=== PATIENT | female | born 1970 | race Caucasian/White ===

== ENCOUNTER 2017-05-20 06:21 | Day surgery (SDC) | payer OTHER ==
--- NOTE | 2017-05-11 02:01 | HP ---
AMENDED REPORT NOW INCLUDES COSIGNER DESIGNATION - ESIGNED BEFORE ADJUSTMENT HISTORY AND PHYSICAL: DATE OF HISTORY AND PHYSICAL: 05/09/17 DATE OF SURGERY: 05/20/17 SURGEON: Dr. Camacho * (DICTATED BY DOMINGO SHAH) PROCEDURE: Left shoulder arthroscopic rotator cuff repair, decompression, debridement. CHIEF COMPLAINT: Left shoulder pain. HISTORY OF PRESENT ILLNESS: Gisselle is a 46-year-old right-hand dominant female with bilateral shoulder pain with left greater than right. It has been going for some time. She states as early as 2009 was when that pain started. She did also follow up of course in 2005. She states that she was in a chair in her bathroom when she fell off the chair and hit very hard with her shoulder. 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 She was previously a patient of Dr. Whitfield but was also sent to our office from Dr. Crowe and Dr. Sanchez as well as Dr. Menjivar. She has had cortisone injections in the past which she reports no response to, her pain is about 10/ 10. She has pain with sleeping, lifting, moving above her head and away from her body. She does have improvement in that pain with ice and medications or if she is stopping what she is doing. She has engaged in physical therapy for extensive amount of time in the past. She had an MRI as well as x-rays previously. She has also been seen in the [facility] in [place] previously , but Dr. Crowe appears to be managing her pain medication now. She does have a history of PTSD. She is here today for a history and physical for surgery which was discussed on April 11 with the patient with Dr. Camacho. She did have cardiac clearance from Dr. Britton including an EKG and echocardiogram. She did request some disability, paper work filled out today. PAST MEDICAL HISTORY: Significant for PTSD; anxiety; depression; cervical spine , thoracic spine, and lumbar spine pain. She does have some numbness and tingling down her arm. She does get migraines. She has fibromyalgia and chronic pain syndrome, GERD, and osteoarthritis. PAST SURGICAL HISTORY: Significant for C6-C7 fusion in 2016, bariatric Carroll-en- Y in 2014 and and tonsillectomy. MEDICATIONS: She is currently takin. Trazodone. 2. Tizanidine. 3. Lyrica. 4. Iron supplement. 5. Diazepam. 6. Sertraline. 7. Vitamin B12. 8. Loratadine. 9. Vitamin D3. 10. Magnesium oxide. 11. Zoloft. 12. Prilosec. 13. Motrin. 14. Endocet. 15. Probiotics. 16. Tums as needed. 17. Excedrin Migraine. 18. Imodium. 19. Dulcolax. 20. Ashlyna oral contraceptive. ALLERGIES: She has allergies to ADHESIVE TAPE, BIAXIN, and LEXAPRO. FAMILY MEDICAL HISTORY: Significant for mother with thyroid disorders, AFib, and irritable bowel syndrome. Father with hyperlipidemia, hypertension, and thyroid disease. Sister with IBS and brother with IBS. SOCIAL HISTORY: She denies tobacco, alcohol, and illicit drug use. REVIEW OF SYSTEMS: Positive for her current complaint, headaches; pedal swelling in her right lower limb, this is chronic; nausea, vomiting, diarrhea, and constipation; back pain; a Hearn's cyst; depression; anxiety; anemia; easy bruising. She denies problems with anesthesia in the past. She endorses ability to walk a city block or flight of stairs without stopping and denies a history of DVT, PE, MRSA, hepatitis C, and HIV. She also denied 14 point review of systems aside from previously reported. PHYSICAL EXAMINATION VITAL SIGNS: Height 54 inches, weight 213 pounds, blood pressure 124/70, respirations 18, temperature 97.7, pain level 6, BMI 36.6. GENERAL: She is a well-developed, well-nourished 46-year-old female in no acute distress. Alert and oriented x3 with numbness in her left arm to soft touch. She ambulates without a limp. HEENT: Normocephalic and atraumatic. Pupils equally round and reactive to light. Extraocular movements intact. Neck is supple, no palpable cervical lymph nodes. Thyroid is smooth and nontender. PULMONARY: Lungs are clear to auscultation bilaterally with no wheezes, rhonchi , or rales. CARDIAC: Regular, rate, and rhythm with no murmurs, rubs, or gallops. No pedal edema. ABDOMEN: Soft and nontender. NEUROLOGIC: Sensation is grossly intact to light touch. MUSCULOSKELETAL: Left upper extremity: Examination of the left shoulder shows intact skin. There is no erythema or warmth. She is nontender at the AC joint , but tender at the subacromial side. Mildly tender at the bicipital groove. She is able to forward flex to 160, abduct to 155 with some discomfort; externally rotate to 70, internally rotate to thoracolumbar spine. She has 5/5 strength with belly- press and bear hug, forward flexion too. She has a positive Kristie's test with mild amount of weakness for cuff strength. Positive impingement test. Garibay, nontender to palpation at the joint. She has positive Speeds and Graham. She is sensitive to light touch at the first dorsal space with 2+ radial pulses. STUDIES: X-rays, and MRI were previously reviewed. X-ray of the left shoulder demonstrates downward sloping acromial spur and no fractures or dislocations. MRI obtained on 03/18/17 demonstrates a high-grade partial thickness tear. Supraspinatus tendon with mild amount of AC joint arthritis, fluid at the bicipital groove with no obvious tendinosis. IMPRESSION: Partial thickness tearing of the supraspinatus extending into the infraspinatus as she has previously failed conservative treatment. She has opted to do surgery. Gisselle is scheduled to undergo a left shoulder arthroscopic rotator cuff repair with decompression and debridement on 05/20/[address] Camacho. She will return to clinic 10 to 14 days postop for followup and suture removal. Pain medications will be discussed with Dr. Crowe prior to her surgery. All questions were answered today. DOMINGO SHAH [id number]/[facility] #: [id number] LOW
[~2017-05-20 06:21] MED LIST: Buffered Lidocaine 0.9% SYRIN* 5 ML/SYR SYRINGE INTRADERM ONE; DiMENhydriNATE IV* 50 MG/ML VIAL IV PUSH PRN; Famotidine IV* 10 MG/ML 2 ML (20 mg) IV ONE; Morphine INJ* 2 MG/ML 1 ML CARPUJECT IV PRN; PROCHLORPERAZINE INJ 5 MG/ML 2 ML VIAL IV PRN; Scopolamine 1.5 mg* PATCH TRANSDERM PRN; fentaNYL* 50 MCG/ML 2 ML VIAL (100 MCG VIAL) IV PRN; oxyCODONE/Acetamin 5/325 MG* TAB PO PRN
[2017-05-20] MEDS ORDERED: Famotidine IV* 10 MG/ML 2 ML (20 mg) ONE (06:27)
[2017-05-20] MEDS ORDERED: Bupivacaine 0.25% SDV* 30 ML ONE ×2 (07:04→07:14)
[2017-05-20] MEDS ORDERED: Midazolam* 1 MG/ML 5 ML VIAL (5 MG) ONE (07:17)
[2017-05-20] MEDS ORDERED: fentaNYL* 50 MCG/ML 2 ML VIAL (100 MCG VIAL) ONE (07:17)
[2017-05-20] MEDS ORDERED: KETAMINE HCL* 50 MG/ML 10 ML VIAL ONE (07:17)
[2017-05-20] MEDS ORDERED: ceFAZolin 2 GM PREMIX (*) 2 GM/50 ML BAG IVPB ONE (07:20)
[2017-05-20] MEDS ORDERED: Lidocaine 2% PF * 5 ML VIAL ONE (08:38)
[2017-05-20] MEDS ORDERED: Dexamethasone IV* 4 MG/ML 1 ML (4 MG) ONE (08:38)
[2017-05-20] MEDS ORDERED: PROCHLORPERAZINE INJ 5 MG/ML 2 ML VIAL ONE (08:38)
[2017-05-20] MEDS ORDERED: Propofol* 10 MG/ML 20 ML BTL IV PUSH ONE (08:38)
[2017-05-20] MEDS ORDERED: Ondansetron INJ* 2 MG/ML VIAL ONE (08:38)
[2017-05-20] MEDS ORDERED: Morphine INJ* 10 MG/ML 1 ML CARPUJECT ONE (09:01)
[2017-05-20] MEDS ORDERED: hydrALAZINE IV* 20 MG/ML VIAL ONE (09:35)
[2017-05-20] MEDS ORDERED: oxyCODONE/Acetamin 5/325 MG* TAB ONE (10:08)
[2017-05-20 10:52] VITALS: BP 128/72
--- NOTE | 2017-05-21 03:18 | OP ---
CC: PCP, Shen Sanchez MD DATE OF OPERATION: 05/20/17 [facility] DATE OF : 68 SURGEON: Lelia Camacho MD EVIDENCE CUSTODIAN: DOMINGO Gonsalez ANESTHESIOLOGIST: Dinh Vergara MD ANESTHESIA: General interscalene block. PRE-OP DIAGNOSIS: Left shoulder partial-thickness rotator cuff tear with bicipital tendinitis. POST-OP DIAGNOSIS: Left shoulder partial-thickness rotator cuff tear with bicipital tendinitis. OPERATIVE PROCEDURE: 1. Left shoulder arthroscopy with debridement including subscapularis debridement. 2. Rotator cuff repair of supraspinatus in double-row fashion. 3. Arthroscopic biceps tenodesis. 4. Subacromial decompression with acromioplasty. INDICATIONS: Gisselle Gunderson is a 46-year-old female who has had several-year history of shoulder pain. This started in 2009. She has had history of falling off a horse in 2005 and then another history of fall in 2009. She has had several opinions and several evaluation. She was initially worked up for neck injury. She has failed conservative management, had injection, and physical therapy. She had an MRI that was concerned for partial-thickness tear of the rotator cuff anteriorly with bicipital tendinitis. After extensive discussion of the risks and benefits of the operative versus nonoperative treatment, she has elected to proceed with the operative treatment. DESCRIPTION OF PROCEDURE: The patient was greeted in the preoperative area by the attending surgeon. Correct extremity was marked and consent was confirmed. She underwent interscalene nerve block by anesthesiologist, which she tolerated without difficulty. She was then brought back to the operative suite. She was placed in supine position on the operating table. She then underwent general anesthesia with LMA intubation, after which she was placed in the right lateral decubitus position. The left arm was draped unsterile with 10 pounds of traction. The left shoulder was prepped and draped in usual sterile fashion beginning with chlorhexidine soap, scrub, and alcohol wipe, and a final prep with ChloraPrep. After appropriate surgical pause indicating site, side, procedure, and administration of antibiotics, the standard postero-lateral portal was made using an 11 blade. The scope was brought into position in the joint and the joint was examined. There was partial-thickness tearing of the undersurface of supraspinatus. The interval had unstable tearing. The biceps was subluxed anteriorly, undersurface of the subscap also had some mild unstable tearing. The anterior, posterior, superior labrum were torn with unstable flaps. The anterior portal was made in an outside-in fashion. Shaver was used to debride back the anterior, posterior, superior labrum. The biceps was then tagged using an 0 PDS suture and tenotomized. The undersurface of the supraspinatus and the subscapularis was debrided back. This was an unusual shaped tear and appeared to be an L-shaped tear, but only involved the anterior portion of the supraspinatus tendon. The infraspinatus was intact. Glenohumeral joint had grade 0 to 1 changes of the head, and grade 1 and small areas with grade 2 changes of the glenoid, with no large unstable flaps. Inferior recess was intact. Once the debridement was completed and the tenotomy was completed, attention was directed to the subacromial space. A second PDS suture was used to ashlee the position of the tear of the supraspinatus tendon. The scope was positioned in the subacromial space. The lateral portal was made in an outside-in fashion. he shaver was used to debride back the large thick bursa that was present. Electrocautery was used to skeletonize the undersurface of the acromion, which had a moderate-sized spur. This was then debrided back using arthroscopic bur. The bur was then used to do a small acromioplasty of the acromion. All excess debris was removed from the subacromial space and attention was directed to the rotator cuff, which was then probed and found to have high- grade partial-thickness bursal-sided tearing at the level of the previously marked tear. There was an unstable flap that was evident as well. Decision was made to repair this. The knife was then used to complete the tear. This was the anterior aspect of the supraspinatus tendon. The greater tuberosity was prepared using electrocautery , the shaver as well as the bur and the rasp. Once this was done, the cuff tissue was also mobilized carefully. The biceps was pulled through to the subacromial space so that could be later tenodesed as well. Once 4.75 Q-Fix anchor was placed along the medial row with excellent purchase, the sutures were passed through the tendon in a horizontal mattress configuration. These were then tied down using arthroscopic knot tying. The sutures were then passed through the biceps tendon and then also secured to allow for biceps tenodesis. All the excess sutures were then passed through a MultiFix anchor, which was secured for lateral row fixation. Once the rotator cuff repaired and biceps tenodesis were complete, final images were obtained. The shoulder was thoroughly lavaged and the portals were closed with 3-0 nylon. A Cryo/Cuff as well as an UltraSling was then placed. She was awoken from anesthesia and transferred to PACU in stable condition. POSTOPERATIVE PLAN: She will be nonweightbearing. She will be in a sling for 6 weeks. She will start therapy in 4 weeks. She will be discharged on pain medications and DVT prophylaxis was considered, but deferred due to no previous personal or family history. We will only cover the pain medication for approximately 6 weeks. [id number]/[facility] #: [id number] [facility] HOSPITALRosamaria
[2017-05-23] MEDS ORDERED: Scopolamine PATCH Remove* 1 NOTE MISC PATCH OFF ONE (05:42)
== END 2017-05-20 11:05 | disposition home or self-care (01) ==
LOC: OREAST 06:21
PROVIDERS: ATTEND Orthopaedic Surgery
DX: S46.012A Strain of muscle(s) and tendon(s) of the rotator cuff of left shoulder, initial encounter (principal); M75.22 Bicipital tendinitis, left shoulder; W19.XXXA Unspecified fall, initial encounter; Y92.9 Unspecified place or not applicable; G89.18 Other acute postprocedural pain; F43.10 Post-traumatic stress disorder, unspecified; F41.9 Anxiety disorder, unspecified; F32.9 Major depressive disorder, single episode, unspecified; G43.909 Migraine, unspecified, not intractable, without status migrainosus; M79.7 Fibromyalgia; K21.9 Gastro-esophageal reflux disease without esophagitis; G89.4 Chronic pain syndrome; Z88.1 Allergy status to other antibiotic agents; Z88.8 Allergy status to other drugs, medicaments and biological substances
CPT/HCPCS: 81025; A9270-GY; C1713; J0360; J0690; J0780; J1100; J2250; J2270; J2405; J2704; J3010

== ENCOUNTER 2017-06-24 14:47 | Emergency (ER) | payer OTHER ==
--- OUTSIDE RECORDS SUMMARY | 2017-06-24 16:10 | XMS REPORT ---
:1970 External Reference #:[id number] [facility] Address [address] [address] Phone [phone] Care Team Providers Name Role Phone Randi Crowe MD Primary Care Physician Unavailable Payers Type Date Identification Numbers Payment Provider Subscriber Health Maintenance Effective: Policy Number: [facility] Gisselle Blank Neptali Organization (O) 12/22/2001 [id number] Expires: 02/02/2015 PayID: [id number] [address] [address] [place] [address] Commercial Policy Number: [id number] Rodolfo Bettencourth Group Number: [id number] [address] PayID: [id number] [place] [address] Problems Date Description Provider Status Onset: 02/03/2015 Sprain of shoulder and upper arm Rahel Romano MD Active Onset: 05/28/2017 Disorder of shoulder Lelia Camacho MD Active Family History Date Family Member(s) Problem(s) Comments General No Current Problems Onset: (11/15/2015) Father Hypertension (age 69 Years) Mother afib, cardioverted x 1 Onset: (11/15/2015) Mother Alive And Well (age 70 Years) Siblings 2 no known cardiac issues Social History Type Date Description Comments Marital Status Single Lives With Alone Occupation Unemployed ETOH Use Denies alcohol use Smoking Patient has never smoked Recreational Drug Use Denies Drug Use Daily Caffeine Does Not Consume Caffeine Exercise Type/Frequency Exercises sporadically water therapy 3x weekly Exercise Type/Frequency walks General Hx Text medical issues impair her ability to work Allergies, Adverse Reactions, Alerts Date Description Reaction Status Severity Comments 02/01/2004 Adhesive Tape active rash 08/23/2016 Biaxin active 04/01/2017 Lexapro active Medications Medication Date Status Form Strength Qnty SIG Indications Ordering Provider Cephalexin 05/20 Active Tablets 500mg 12tab take 1 by zane s mouth four Yaseen, times a day MD x 3 days Oxycodone-Acetami 05/20 Active Tablets 5-325mg 40tab 1-2 tabs by Lelia sosa s mouth every Yaseen, 4-6 hours as MD needed for pain do not fill until 05/30/17 Lyrica 04/23 Active Capsules 150mg 1 by mouth twice a day Harper Britton M.D. Acidophilus 04/23 Active Capsules once daily Straight Cane For 09/17 Active 1unit Shen Busch Knee DJ maximo Sanchez MD Trazodone HCL Active Tablets 100mg 1/2 by mouth Unknown /0000 every night at bedtime Tizanidine HCL Active Capsules 4mg 1 by mouth Unknown /0000 at bedtime Iron Active Tablets 325(65Fe) 1 by mouth Unknown /0000 mg every day Diazepam Active Tablets 10mg take 1 Unknown /0000 tablet by mouth three times a day maximum daily dose of 3 Sertraline HCL Active Tablets 100mg take 1 Unknown /0000 tablet by mouth every morning Ra Vitamin B-12 Active Tablets 1000mcg 1 tab po Unknown TR / ER daily Loratadine Active Tablets 10mg 1 tab po Unknown /0000 daily Ra Vitamin D-3 Active Tablets 1000Unit take 2 Unknown /0000 tablets by mouth once daily Magnesium Oxide Active Tablets 500mg 1 capsule by Unknown /0000 mouth daily Pt is not currently taking) Prilosec Active 40mg 1-2 tabs q Unknown /0000 day Motrin Ib Active prn Unknown /0000 Endocet Active Tablets 10-325mg Unknown /0000 Tums Active Chewtabs 500mg 2 chewtabs Unknown /0000 by mouth daily Excedrin Migraine Active Tablets 250-250-6 1 tab twice Unknown /0000 5mg a day as needed for migraine Imodium A-D Active Capsules 2mg 1 by mouth Unknown /0000 twice a day, as needed diarrhea Ashlyna Active Tablets 0.15-0.03 Unknown /0000 &0.01 mg Dexamethasone Active Tablets 1.5mg Tiara, /0000 MD Talia Cyclobenzaprine 11/14 Hx Tablets 10mg 30tab one by mouth Other s three times Ordering - a day as Provider 08/22 needed spasm Percocet 02/24 Hx Tablets 5-325mg 15tab 1 tab po q 840.9 Fnu s 8hrs prn Juan Antonio, - pain 11/13 Motrin Ib 02/03 Hx Tablets 600mg 60tab as needed Fnu s qid Juan Antonio, - 04/01 Vicodin 02/03 Hx Tablets 5-300mg 15tab 1 tab twice 840.9 Fnu /2014 s daily as Juan Antonio, - needed for 11/13 pain. Singulair 01/30 Hx Tablets 10mg 30tab one qd am s F. - Mauser, 02/03 M.D. Aciphex 01/30 Hx Tablets 20mg 30tab 2 po qd s F. - Mauser, 02/03.D. Advair Diskus 01/30 Hx Inhaler 500mcg;50 1 PO bid mcg F. - Mauser, 02/03.D. Albuterol 01/30 Hx Aerosol 90mcg/Dos e F. - Mauser, 02/03 M.D. Triphasil 28 Day 01/30 Hx Tablets 0.03mg;0. 1 PO qd 05mg;0.04 F. - MG Adeliauser, 02/03.D. Vitamin C 01/30 Hx Capsules 500mg 1 PO qd Duc F. - Mauser, 02/03 M.D. /2014 Relpax 01/30 Hx Tablets 40mg prn Duc F. - Mauser, 02/03 M.D. Axert 01/30 Hx Tablets 1 po prn migrain Harper Britton, 02/03 M.D. /2014 Lexapro 01/30 Hx Tablets 10mg 30tab 1 PO qd s Harper Britton, 02/02 M.D. Alprazolam Hx Tablets 0.5mg take 1 Unknown /0000 tablet by - mouth every 11/13 8 hours needed for anxiety maximum joaquim (pt suzetted, MD aware) Prozac Hx Capsules 60mg 1 by mouth Unknown /0000 every day - 11/13 Omeprazole Hx Capsules 40mg 1 po bid Unknown /0000 DR - 09/05 Seasonale Hx Tablets 0.15-0.03 1 by mouth Unknown /0000 mg every day - 11/13 Escitalopram Hx Tablets 10mg 1 by mouth Unknown Oxalate /0000 every day - 08/22 Loperamide HCL Hx Capsules 2mg take one Unknown /0000 capsule by - mouth every 04/01 6 hours needed Lyrica Hx Capsules 75mg 1 by mouth Unknown /0000 twice a day - 04/24 Gabapentin 00/ Hx Capsules 300mg 1 by mouth Unknown /0000 bid - 11/21 Benadryl Allergy Hx Tablets 25mg 2 tablet by Unknown /0000 mouth qhs as - needed 08/22 Clonazepam 00 Hx Tablets 2mg 1 by mouth Unknown /0000 three times - a day prn 08/22 Clindamycin Hx Gel 1% apply to Unknown Phosphate /0000 affected - area two 08/22 times daily Tramadol HCL 0000 Hx Tablets 50mg take 1 to 2 Unknown /0000 tablets by - mouth three 04/01 times a day /2016 if needed maximum daily Fluoxetine HCL 0000 Hx Capsules 40mg take 1 Unknown /0000 capsule by - mouth every 11/21 Fluoxetine HCL 00/00 Hx Capsules 20mg take 1 Unknown /0000 capsule by - mouth once 11/21 daily Along With 40 MG Cap Ferrous Sulfate Hx Tablets 325(65Fe) Take 1 Unknown /0000 mg Tablet By - Mouth Every Colace Hx Capsules 100mg 1 by mouth Unknown /0000 up to 3 - times a day 04/01 as needed for constipation . Pantoprazole Hx Tablets 40mg 1 po qday Olarewaju Sodium /0000 , - Catie, 03/05 Oxycodone-Acetami Hx Tablets 7.5-325mg take 1 Unknown nophen / tablet by - mouth every 04/01 6 hours needed for Severe Neck An... Ashlyna Hx Tablets 0.15-0.03 take 1 Unknown /0000 &0.01 tablet by - mg mouth At The 04/01 Same Time Every Day Zoloft Hx 150mg Unknown / - 03/24 Vitamin B12 Hx q day Unknown / - 03/24 Control Hx Unknown / - 03/24 Probiotic Hx Capsules 1 by mouth Unknown / every day - 03/24 Dulcolax Hx Tablets 5mg take as Unknown /0000 directed for - colonoscopy 03/24 Medications Administered in Office Medication Date Status Form Strength Qnty SIG Indications Ordering Provider Celestone 3 mg Administered Injection Shen M and 3mg 017 MD Luara Celestone 3 mg Administered Injection Shen M and 3mg 017 MD Laura Depomedrol Administered Injection Shen M 40MG Rut Sanchez MD Depomedrol Administered Injection Shen M 40MG 017 MD Laura Depomedrol Administered Injection Shen M 40MG 017 MD Laura Depomedrol Administered Injection Fnu 40MG Sheila Romano MD Vital Signs Date Vital Result Comment 05/28/2017 Height 64 inches 5'4" Weight 213.00 lb Respiratory Rate 14 /min Pain Level 8 BMI (Body Mass Index) 36.6 kg/m2 05/09/2017 Height 64 inches 5'4" Weight 213.00 lb BP Systolic 124 mmHg BP Diastolic 70 mmHg Respiratory Rate 18 /min Body Temperature 97.7 F Pain Level 6 BMI (Body Mass Index) 36.6 kg/m2 04/24/2017 Height 64 inches 5'4" Weight 213.00 lb with shoes Heart Rate 68 /min BP Systolic Sitting 138 mmHg LA reg cuff BP Diastolic Sitting 90 mmHg LA reg cuff BMI (Body Mass Index) 36.6 kg/m2 Ejection Fraction 63% stress test 12/10/03 04/11/2017 Height 64 inches 5'4" Weight 210.00 lb BP Systolic 128 mmHg BP Diastolic 74 mmHg Respiratory Rate 18 /min Pain Level 5 BMI (Body Mass Index) 36.0 kg/m2 04/01/2017 Height 64 inches 5'4" Weight 210.00 lb Heart Rate 60 /min BP Systolic 119 mmHg BP Diastolic 81 mmHg Body Temperature 97.5 F BMI (Body Mass Index) 36.0 kg/m2 03/11/2017 Height 64 inches 5'4" Weight 210.00 lb Heart Rate 76 /min BP Systolic Sitting 122 mmHg BP Diastolic Sitting 78 mmHg Respiratory Rate 16 /min Pain Level 8 BMI (Body Mass Index) 36.0 kg/m2 11/22/2016 Height 64 inches 5'4" Weight 190.00 lb Heart Rate 76 /min BP Systolic 124 mmHg BP Diastolic 68 mmHg Respiratory Rate 16 /min Pain Level 8 BMI (Body Mass Index) 32.6 kg/m2 09/07/2016 Height 64 inches 5'4" Weight 184.00 lb Heart Rate 72 /min BP Systolic Sitting 90 mmHg BP Diastolic Sitting 58 mmHg Respiratory Rate 18 /min Pain Level 5 BMI (Body Mass Index) 31.6 kg/m2 08/23/2016 Height 64 inches 5'4" Weight 190.00 lb Heart Rate 72 /min BP Systolic Sitting 104 mmHg BP Diastolic Sitting 58 mmHg Respiratory Rate 18 /min BMI (Body Mass Index) 32.6 kg/m2 11/15/2015 Height 64 inches 5'4" Weight 169.00 lb with shoes Heart Rate 74 /min BP Systolic 128 mmHg LA reg cuff BP Diastolic 86 mmHg LA reg cuff BMI (Body Mass Index) 29.0 kg/m2 Ejection Fraction 60% - 65% echo 02/10/2002 02/24/2015 Height 64 inches 5'4" Weight 170.00 lb Heart Rate 78 /min BP Systolic Sitting 124 mmHg BP Diastolic Sitting 80 mmHg BMI (Body Mass Index) 29.2 kg/m2 02/03/2015 Height 64 inches 5'4" Weight 170.00 lb Heart Rate 78 /min BP Systolic Sitting 126 mmHg BP Diastolic Sitting 80 mmHg BMI (Body Mass Index) 29.2 kg/m2 02/01/2004 Height 65 inches 5'5" Weight 308.00 lb Heart Rate 77 /min BP Systolic Sitting 130 mmHg left arm, right arm 124/82 BP Diastolic Sitting 80 mmHg left arm, right arm 124/82 BP Systolic Standing 128 mmHg BP Diastolic Standing 80 mmHg O2 % BldC Oximetry 97 % BMI (Body Mass Index) 51.2 kg/m2 Results Description No Information Procedures Date CPT Code Description Status 05/20/2017 82324 Arthroscopy Biceps Tenodesis Completed 05/20/2017 95879 Arthroscopy Biceps Tenodesis Completed 05/20/2017 59671 Arthroscopy Shoulder,W/Rotator Cuff Repair Completed 05/20/2017 74969 Arthroscopy Shoulder,W/Rotator Cuff Repair Completed 05/20/2017 86931 Arthroscopy,Shoulder Decompression Of Subacromial Space Completed W/Acromio 05/20/2017 77171 Arthroscopy,Shoulder Decompression Of Subacromial Space Completed W/Acromio 05/20/2017 80389 Arthroscopy Shoulder Debridement Extensive Completed 05/20/2017 08979 Arthroscopy Shoulder Debridement Limited Completed 04/24/2017 67196 ECHO Transthoracic, Real-Time 2D With Doppler And Color Completed Flow 03/11/2017 09087 Inject/Drain Joint/Bursa Major Completed 11/22/2016 42513 Inject Tendon Sheath Or Ligament Aponeurosis Eg Plantar Completed Fascia 09/07/2016 39082 Xray Knee 3 Views Completed 09/07/201639935 Inject/Drain Joint/Bursa Major Completed 08/23/2016 22479 Inject/Drain Joint/Bursa Major Completed 11/15/2015 56967 EKG Tracing & Interpretation Completed 02/03/2015 50098 Rad Shoulder Comp, Min. 2 Views Completed 02/03/2015 69692 Inject/Drain Joint/Bursa Major Completed 02/01/2004 15221 EKG Tracing & Interpretation Completed 12/10/2003 49214 ECHO/Stress Completed 12/10/2003 50452 Stress Test Completed Encounters Type Date Location Provider CPT E/M Dx Office Visit 04/24/2017 2:30p [facility] Duc Britton, 29549 R01.1 Ammon I49.1 I34.0 E66.9 Z01.810 Office Visit 04/11/2017 1:30p [place] [address] S46.012A [facility] Office Visit 04/01/2017 2:00p [facility] [address] M75.42 Of CYesenia Whitfield MD S46.012A M17.11 Office Visit 03/11/2017 11:30a [facility] [place] [address] M17.11 [facility] Office Visit 11/22/2016 1:00p [facility] [place] [address] M65.4 [facility] Office Visit 09/07/2016 1:45p [facility] [place] [address] M17.11 [facility] [place] M25.561 Office Visit 08/23/2016 2:30p [facility] [place] [address] M23.231 [facility] [place] M75.41 M75.42 Office Visit 11/15/2015 2:00p [facility] Duc Britton, 41606 Z01.810 M.DHannah M54.12 Office Visit 02/24/2015 3:00p [facility] Of [facility] [place] [address] 840.9 [place] 840.6 723.4 Office Visit 02/03/2015 3:20p Sports Medicine Of [facility] [place] [address] 840.9 [place] 840.4 Office Visit 12/17/2006 1:30p Neurosurgery Services Travis Sanchez, 43046 721.3 Of [facility] M.DHannah Office Visit 02/01/2004 8:40a [facility] Duc Britton, 76620 785.2 M.DHannha 785.1 745.5 427.61 Plan of Care Future Appointment(s):07/02/2017 1:45 pm - Lelia Camacho MD at [facility]05/28/2017 - Lelia Camacho MDS46.012A Strain of musc/tend the rotator cuff of left shoulder, initNew Therapy:Physical TherapyRehab ReferralFollow up:Saturday or Saturday with nurse for suture [id number] Impingement syndrome of left shoulderNew Therapy:Physical Therapy
--- OUTSIDE RECORDS SUMMARY | 2017-06-24 16:11 | XMS REPORT ---
:1970 External Reference #:[id number] Author Organization [facility] Address [address] [address] Phone [phone] Care Team Providers Name Role Phone Randi Crowe MD Primary Care Physician Unavailable Payers Type Date Identification Numbers Payment Provider Subscriber Health Maintenance Effective: Policy Number: [facility] Gisselle Blank Neptali Organization (O) 12/22/2001 [id number] Expires: 02/02/2015 PayID: [id number] [address] [address] [place] [address] Commercial Policy Number: [id number] Rodolfo Bettencourth Group Number: [id number] [address] PayID: [id number] [place] [address] Problems Date Description Provider Status Onset: 02/03/2015 [...] 840.9 Fnu /2014 s daily as Juan Anotnio, - needed for 11/13 pain. Singulair 01/30 [...] Shen M and 3mg 017 MD Laura Celestone 3 mg Administered Injection Shen M [...] Information Procedures Date CPT Code Description Status 04/24/2017 62379 ECHO Transthoracic, Real-Time 2D With Doppler And Color Completed Flow 03/11/2017 Inject/Drain Joint/Bursa Major Completed 11/22/2016 34187 Inject Tendon Sheath Or Ligament Aponeurosis Eg Plantar Completed Fascia 09/07/2016 02856 Xray Knee 3 Views Completed 09/07/2016 Inject/Drain Joint/Bursa Major Completed 08/23/2016 Inject/Drain Joint/Bursa Major Completed 11/15/2015 81826 EKG Tracing & Interpretation Completed 02/03/2015 59420 Rad Shoulder Comp, Min. 2 Views Completed 02/03/201512210 Inject/Drain Joint/Bursa Major Completed 02/01/2004 48768 EKG Tracing & Interpretation Completed 12/10/2003 15738 ECHO/Stress Completed 12/10/2003 05106 Stress Test Completed Encounters Type Date Location Provider CPT E/M Dx Office Visit 04/24/2017 2:30p [facility] Duc Britton, 56576 R01.1 Narayan.Olegario I49.1 I34.0 E66.9 Z01.810 Office Visit 04/11/2017 1:30p [place] [address] S46.012A Of [place].MMiguel Angel Office Visit 04/01/2017 2:00p [facility] Services Jorje Castañeda [address]266 M75.42 Of [place] Whitfield MD S46.012A M17.11 Office Visit 03/11/2017 11:30a [facility] [address] M17.11 [facility] [place] Office Visit 11/22/2016 1:00p [facility] [place] [address] M65.4 [facility] [place] Office Visit 09/07/2016 1:45p [facility] [place] [address] M17.11 [facility] [place] M25.561 Office Visit 08/23/2016 2:30p [facility] [place] [address] M23.231 [facility] [place] M75.41 M75.42 Office Visit 11/15/2015 2:00p [facility] Duc Britton, 75750 Z01.810 M.DHannah M54.12 Office Visit 02/24/2015 3:00p [facility] Of [facility] [place] [address] 840.9 [place] 840.6 723.4 Office Visit 02/03/2015 3:20p [facility] Of [facility] [place] [address] 840.9 [place] 840.4 Office Visit 12/17/2006 1:30p Neurosurgery Services Travis Sanchez, 75203 721.3 Of [facility] M.DHannah Office Visit 02/01/2004 8:40a [facility] Duc Britton, 38150 785.2 M.DHannah 785.1 745.5 427.61 Plan of Care Future Appointment(s):06/03/2017 1:30 pm - Ortho Clinical at [facility] [place]05/28/2017 - Lelia Camacho, MDS46.012A Strain of musc/tend the rotator cuff of left shoulder, initNew Therapy:Physical TherapyRehab ReferralFollow up:Saturday or Saturday with nurse for suture [id number] Impingement syndrome of left shoulderNew Therapy:Physical Therapy
== END 2017-06-24 16:11 | disposition left against medical advice (07) ==
LOC: UCCORT 14:47
DX: S49.92XA Unspecified injury of left shoulder and upper arm, initial encounter (principal); X58.XXXA Exposure to other specified factors, initial encounter; Y92.9 Unspecified place or not applicable; Z53.21 Procedure and treatment not carried out due to patient leaving prior to being seen by health care provider

== ENCOUNTER 2017-10-23 06:24 | Day surgery (SDC) | payer OTHER ==
[~2017-10-23 06:24] MED LIST changes: -Famotidine IV* 10 MG/ML 2 ML (20 mg) IV ONE; +Gabapentin CAP(*) 300 MG PO ONE; +Naloxone* 0.4 MG/ML 1 ML VIAL IV PRN; +Ondansetron INJ* 2 MG/ML VIAL ONE
[2017-10-23] MEDS ORDERED: ceFAZolin 2 GM PREMIX (*) 2 GM/50 ML BAG IVPB ONE (06:38)
[2017-10-23] MEDS ORDERED: Buffered Lidocaine 0.9% SYRIN* 5 ML/SYR SYRINGE ONE (06:38)
[2017-10-23] MEDS ORDERED: Gabapentin CAP(*) 300 MG ONE (06:38)
[2017-10-23] MEDS ORDERED: Bupivacaine 0.25% SDV* 30 ML ONE ×2 (06:57→08:16)
[2017-10-23] MEDS ORDERED: Ondansetron ODT TAB* 4 MG ONE (07:00)
[2017-10-23] MEDS ORDERED: fentaNYL* 50 MCG/ML 2 ML VIAL (100 MCG VIAL) ONE (07:25)
[2017-10-23] MEDS ORDERED: Midazolam* 1 MG/ML 10 ML VIAL (10 MG) ONE (07:25)
[2017-10-23] MEDS ORDERED: Lidocaine 2% PF * 5 ML VIAL ONE (08:16)
[2017-10-23] MEDS ORDERED: PROCHLORPERAZINE INJ 5 MG/ML 2 ML VIAL ONE (08:17)
[2017-10-23] MEDS ORDERED: Ketorolac INJ* 30 MG/ML 1 ML VIAL ONE (08:17)
[2017-10-23] MEDS ORDERED: Propofol* 10 MG/ML 20 ML BTL IV PUSH ONE (08:17)
[2017-10-23] MEDS ORDERED: Dexamethasone IV* 4 MG/ML 1 ML (4 MG) ONE (08:17)
[2017-10-23] MEDS ORDERED: Morphine INJ* 10 MG/ML 1 ML CARPUJECT ONE (08:22)
[2017-10-23] MEDS ORDERED: Midazolam* 1 MG/ML 5 ML VIAL (5 MG) ONE (08:22)
[2017-10-23 13:15] VITALS: BP 154/84
--- NOTE | 2017-10-24 11:43 | OP ---
CC: PCP, Randi Crowe MD * DATE OF OPERATION: 10/23/17 - [facility] DATE OF : 68 SURGEON: Lelia Camacho MD HYDRAULIC BOOM OPERATOR: DOMINGO Gonsalez. An delivery assistant was needed for the entirety of the case to help with positioning, retraction, and was utilized throughout all portions of the case. ANESTHESIOLOGIST: Dinh Vergara MD ANESTHESIA: General interscalene block. PRE-OP DIAGNOSIS: Retear of her left rotator cuff repair. POST-OP DIAGNOSIS: Retear of her left rotator cuff repair. OPERATIVE PROCEDURE: 1. Left shoulder arthroscopy with revision rotator cuff repair, complex, requiring extra time and more anchors with a fair amount of complexity. 2. Left shoulder extensive glenohumeral debridement including chondroplasty. Please add 22 modifier due to complexity of this revision repair, greater than normal time to fix and release adhesions, and that it was very challenging too. INDICATIONS: Gisselle Gunderson is a 47-year-old female who was initially diagnosed with a high-grade partial thickness tear of the rotator cuff and I then took her to surgery in April. She was noncompliant with her postoperative restrictions. She did too much. She stated that she did not have help at home. She had persistent pain and she felt a pop in her shoulder between the 2- and 6-week ashlee, and she was raising her arm up when she was not supposed to be in spite of strict restrictions. After extensive discussion about the risks and benefits of revision repair, she is 47-year-old, and we talked about revision repair, I did state that if she is not compliant, I would not want to operate on her, she has then made measures at home to prevent any kind of retear. She has undergone preoperative medical risk assessment, risks include, but are not limited to bleeding, infection, damage to nerves, vessels, surrounding structures, wound nonhealing, persistent pain, need for further surgery, scarring, stiffness, incomplete relief of symptoms, risk of anesthesia, risk of DVT, failure, as well as risk of worsening arthritis, and need for further surgery. IMPLANTS USED: Three Healicoil 4.75 anchors and 2 MultiFix anchors. COMPLICATIONS: None. ESTIMATED BLOOD LOSS: Minimal. DESCRIPTION OF PROCEDURE: The patient was greeted in the preoperative area by the attending surgeon. Correct extremity was marked and the consent was confirmed. The patient underwent interscalene nerve block by the anesthesiologist. She was then brought back to the operating suite, where she was placed in supine position on the operating table, then underwent general anesthesia and LMA intubation after which she was secured with the peg board in the right lateral decubitus position with an axillary roll. All bony prominences were padded. She was secured with a peg board, arm was draped unsterile with 10 pounds of traction. The left shoulder was then prepped and draped in usual sterile fashion beginning with chlorhexidine soap, scrub, and alcohol wipe and a final prep with ChloraPrep. After appropriate surgical pause indicating site, side, procedure, administration of antibiotics, the posterolateral portal was made sharply with a 11 blade. Scope was introduced into the joint, joint was examined. There was evidence of a full-thickness retracted rotator cuff tear to the level of the glenoid with some fibers medial to the glenoid. The biceps, which had been arthroscopically tenodesed, appeared to also been ruptured with the anterior part of the supraspinatus. Tendon quality was poor, it appeared to be flipped up, and there was a scar to the bursa as well to the subacromial space and acromion. There were mild glenohumeral changes, grade 2 changes, and these were debrided back using shaver. Once the chondroplasty was complete and joint visualization was appreciated, there was a small amount of tearing in the subscapularis, but it was not significant to warrant a repair. Attention was directed to the subacromial space. The scope was positioned in the subacromial space. There was abundant significant adhesions to the acromion. These were then carefully released with electrocautery device as well as blunt probe to try to preserve as much of the cuff as possible. Remainder of the cuff had also been scarred to the deltoids and had subdeltoid adhesions. It was very difficult to sort through lysis of adhesions and release of adhesions on the undersurface was done with blunt probes. Hemostasis was obtained with the electrocautery device. It took approximately 45 minutes or more to try to mobilize, it was very challenging, it was very adherent, it was poor quality tissue, every time it was grasped, it started to shred, and it was difficult to mobilize. Extensive measures had to be done to try to help mobilize the tendon sheath to get it back to the footprint. There was a flap that was attached to the infraspinatus that was able to be placed, the rotator cuff repair had to be done in a not typical fashion. I tried to restore balance between infra and supraspinatus tendon by doing a [id number] suture to try to help to decrease the large massive tear, but the suture did not hold well on the supraspinatus and it did not help reapproximate it to the footprint. At this point, decision was made to put a 4.75 anchor posteriorly, which was not normal routine; however, in this case to try to help stabilize and make portions of the cuff secure so that it could be fixed at least posteriorly and help restore some portion of the cable. Significant adhesions had to be done anteriorly including the biceps tenotomy as the biceps had subluxed and part of the supraspinatus needed to be mobilized. The tissue quality was quite poor. It was then carefully mobilized and eventually the cuff was able to be brought to the footprint. There was still a moderate amount of tension on the cuff to try to repair this, which was not optimal, but the tissue was somewhat thick and well, but it was not very good quality at the periphery, so deeper bites had to be taken. Two passing devices were required to be used because it was laborious and time consuming, but once the anterior Healicoil was placed through a separate, the sutures were passed in a horizontal mattress configuration and with a moderate amount of tension on the tendon, it was able to be restored. However, I was not pleased with how it came across, so a second side- to-side stitch was made to try to help bring the cuff down further anteriorly . The sutures were tied down using arthroscopic knot tying, all the remaining strands from each of the knot were then passed through MultiFix anchor, which was secured for lateral row fixation after [id number] sutures had been placed anteriorly and then second MultiFix anchor was placed more posteriorly to help compress remainder of the cuff and perform lateral row fixation. There was still a portion of the very anterior aspect of the humeral head that was not covered to my satisfaction , so one more Healicoil anchor was placed and the sutures were then tied in horizontal mattress configuration but in a [id number] fashion. This helped to try to close any more tissue over the joint itself. Final images were obtained. The wounds were copiously irrigated. The posterior aspect of the cuff had very good coverage with minimal tension, but the anterior aspect had quite a bit of tension. This procedure took at least 1 hour longer than it would have taken in a typical setting. Final images were obtained. The crimson duvet was noted from the small bone marrow vents using the awl. Wounds were copiously irrigated with sterile saline. The portals were closed with 3-0 nylon in interrupted fashion. Sterile dressings were applied. A Cryo/Cuff and UltraSling were applied. She was awoken from anesthesia, transferred to PACU in stable condition. POSTOPERATIVE PLAN: She will be nonweightbearing. She will be discharged on pain medications and antibiotics. I will see the patient back in 14 days. It was reiterated to the patient's family and I strongly suggested that she is compliant as there are not a lot of options other than a superior capsule reconstruction if she fails this repair. DVT prophylaxis was considered, but deferred due to no previous personal or family history. [id number]/[facility] #: [id number] LOW
[2017-10-26] MEDS ORDERED: Scopolamine PATCH Remove* 1 NOTE MISC PATCH OFF ONE (05:55)
== END 2017-10-23 13:44 | disposition home or self-care (01) ==
LOC: OR 06:24
PROVIDERS: ATTEND Orthopaedic Surgery
DX: S46.012A Strain of muscle(s) and tendon(s) of the rotator cuff of left shoulder, initial encounter (principal); M75.42 Impingement syndrome of left shoulder; F41.8 Other specified anxiety disorders; F43.10 Post-traumatic stress disorder, unspecified; M79.7 Fibromyalgia; M19.90 Unspecified osteoarthritis, unspecified site; G89.29 Other chronic pain; G89.18 Other acute postprocedural pain; X58.XXXA Exposure to other specified factors, initial encounter; Y92.9 Unspecified place or not applicable
CPT/HCPCS: 81025; A9270-GY; C1713; J0690; J0780; J1100; J1885; J2250; J2270; J2704; J3010

== ENCOUNTER 2017-11-02 12:06 | Emergency (ER) | payer OTHER ==
--- OUTSIDE RECORDS SUMMARY | 2017-11-02 12:21 | XMS REPORT ---
:1970 External Reference #:[id number] Author Organization [facility] Address [address] [address] Phone [phone] Care Team Providers Name Role Phone Randi Crowe MD Primary Care Physician Unavailable Payers Type Date Identification Numbers Payment Provider Subscriber Health Maintenance Effective: Policy Number: [facility] Gisselle Blank Neptali Organization (O) 12/22/2001 [id number] Expires: 02/02/2015 PayID: [id number] [address] [address] [place] [address] Commercial Policy Number: [id number] [employer] Number: [id number] [address] PayID: [id number] [place] [address] Problems Date Description Provider Status Onset: 02/03/2015 [...] Form Strength Qnty SIG Indications Ordering Provider Oxycodone-Acetami 05/20 Active Tablets 5-325mg 40tab 1-2 tabs by Lelia sosa s mouth every Yaseen, 4-6 hours as MD needed for pain do not fill until 05/30/17 Lyrica 04/23 Active Capsules 150mg 1 by mouth Duc twice a day Harper Britton M.D. Acidophilus 04/23 Active Capsules once daily Straight Cane For 09/17 Active 1unit Shen M Knee DJ maximo Sanchez MD Trazodone HCL [...] taking) Prilosec Active 40mg 1-2 tabs q /0000 day Motrin Ib Active prn /0000 Endocet Active Tablets 10-325mg Unknown /0000 [...] Active Tablets 1.5mg Tiara, /0000 MD Talia Cephalexin 05/20 Hx Tablets 500mg 12tab take 1 by ne s mouth four Yaseen, - times a day 07/13 x 3 days Cyclobenzaprine 11/14 Hx Tablets 10mg 30tab one by mouth Other s three times Ordering - a day as Provider 08/22 needed Percocet 02/24 Hx Tablets 5-325mg 15tab 1 tab po q 840.9 Fnu /2014 s 8hrs prn Juan Antonio, - pain 11/13 Motrin Ib 02/03 Hx Tablets 600mg 60tab as needed Fnu s qid Juan Antonio, - MD 04/01 Vicodin 02/03 Hx Tablets 5-300mg 15tab 1 tab twice 840.9 Fnu /2014 s daily as Juan Antonio, - needed for 11/13 pain. Singulair 01/30 Hx Tablets 10mg 30tab one qd am s F. - Mauser, 02/03.D. Aciphex 01/30 Hx Tablets 20mg 30tab 2 po qd s F. - Adeliauser, 02/03.D. Advair Diskus 01/30 Hx Inhaler 500mcg;50 1 PO bid mcg F. - Mauser, 02/03 M.D. Albuterol 01/30 Hx Aerosol 90mcg/Dos e F. - Mauser, 02/03 M.D. Triphasil 28 Day 01/30 Hx Tablets 0.03mg;0. 1 PO qd 05mg;0.04 F. - MG Adeliauser, 02/03.D. Vitamin C 01/30 Hx Capsules 500mg 1 PO qd Duc F. - Adeliauser, 02/03 M.D. /2014 Relpax 01/30 Hx Tablets 40mg prn Harper Britton, 02/03 M.D. /2014 Axert 01/30 Hx Tablets 1 po prn migrain Maddy. Eliu Britton, 02/03 M.D. /2014 Lexapro 01/30 Hx Tablets 10mg 30tab 1 PO qd s Harper Britton, 02/02 M.D. /2014 Alprazolam Hx Tablets 0.5mg take 1 Unknown /0000 tablet by - mouth every 11/13 8 hours needed for anxiety maximum joaquim (pt sophia, MD aware) Prozac Hx Capsules 60mg 1 [...] by - mouth every 04/01 6 hours as needed Lyrica Hx Capsules 75mg 1 by mouth Unknown /0000 twice a day - 04/24 Gabapentin 00/ Hx Capsules 300mg 1 by mouth Unknown /0000 bid - 11/21 Benadryl Allergy Hx Tablets 25mg 2 tablet by Unknown /0000 mouth qhs as - needed 08/22 Clonazepam Hx Tablets 2mg 1 by mouth Unknown /0000 three times - a day prn 08/22 Clindamycin Hx Gel 1% apply to Unknown Phosphate /0000 affected - area two 08/22 times daily Tramadol HCL Hx Tablets 50mg take 1 to 2 Unknown /0000 tablets by - mouth three 04/01 times a day /2016 if needed maximum daily Fluoxetine HCL 00 Hx Capsules 40mg take 1 Unknown /0000 capsule by - mouth every 11/21 Fluoxetine HCL 00 Hx Capsules 20mg take 1 Unknown /0000 capsule by - mouth once 11/21 daily Along With 40 MG Cap Ferrous Sulfate Hx Tablets 325(65Fe) Take 1 Unknown /0000 mg Tablet By - Mouth Every Colace Hx Capsules 100mg 1 by mouth Unknown /0000 up to 3 - times a day 04/01 as needed for constipation . Pantoprazole Hx Tablets 40mg 1 po qday Saravanan Sodium /0000 , - [facility], 03/05 Oxycodone-Acetami Hx Tablets 7.5-325mg take 1 Unknown nophen /0000 tablet by - mouth every 04/01 6 hours needed for Severe Neck An... Ashlyna Hx Tablets 0.15-0.03 take 1 Unknown /0000 &0.01 tablet by - mg mouth At The 04/01 Same Time Every Day Zoloft Hx 150mg Unknown /0000 - 03/24 Vitamin B12 Hx q day Unknown /0000 - 03/24 Control Hx Unknown /0000 - 03/24 Probiotic Hx Capsules 1 by mouth Unknown /0000 every day - 03/24 Dulcolax Hx Tablets [...] MD Vital Signs Date Vital Result Comment 10/10/2017 Height 64 inches 5'4" Weight 213.00 lb Heart Rate 64 /min BP Systolic Sitting 122 mmHg BP Diastolic Sitting 70 mmHg Respiratory Rate 16 /min Pain Level 8 BMI (Body Mass Index) 36.6 kg/m2 09/10/2017 Height 64 inches 5'4" Weight 213.00 lb Heart Rate 66 /min BP Systolic Sitting 130 mmHg BP Diastolic Sitting 86 mmHg Respiratory Rate 16 /min Pain Level 6 BMI (Body Mass Index) 36.6 kg/m2 08/06/2017 Height 64 inches 5'4" Heart Rate 66 /min Respiratory Rate 17 /min Body Temperature 97.6 F Pain Level 6 07/02/2017 Height 64 inches 5'4" Weight 213.00 lb BP Systolic 128 mmHg BP Diastolic 78 mmHg Respiratory Rate 20 /min Pain Level 7 BMI (Body Mass Index) 36.6 kg/m2 05/28/2017 Height 64 inches 5'4" Weight 213.00 [...] Procedures Date CPT Code Description Status 05/20/2017 57469 Arthroscopy Biceps Tenodesis Completed 05/20/2017 15525 Arthroscopy Biceps Tenodesis Completed 05/20/2017 25049 Arthroscopy Shoulder,W/Rotator Cuff Repair Completed 05/20/2017 82478 Arthroscopy Shoulder,W/Rotator Cuff Repair Completed 05/20/2017 57941 Arthroscopy,Shoulder Decompression Of Subacromial Space Completed W/Acromio 05/20/2017 94319 Arthroscopy,Shoulder Decompression Of Subacromial Space Completed W/Acromio 05/20/2017 40477 Arthroscopy Shoulder Debridement Extensive Completed 05/20/2017 20255 Arthroscopy Shoulder Debridement Limited Completed 04/24/2017 30376 ECHO Transthoracic, Real-Time 2D With Doppler And Color Completed Flow 03/11/201713216 Inject/Drain Joint/Bursa Major Completed 11/22/201649760 Inject Tendon Sheath Or Ligament Aponeurosis Eg Plantar Completed Fascia 09/07/2016 82614 Xray Knee 3 Views Completed 09/07/2016 66471 Inject/Drain Joint/Bursa Major Completed 08/23/2016 82987 Inject/Drain Joint/Bursa Major Completed 11/15/2015 42038 EKG Tracing & Interpretation Completed 02/03/2015 36672 Rad Shoulder Comp, Min. 2 Views Completed 02/03/201539244 Inject/Drain Joint/Bursa Major Completed 02/01/2004 08209 EKG Tracing & Interpretation Completed 12/10/2003 17327 ECHO/Stress Completed 12/10/2003 44067 Stress Test Completed Encounters Type Date Location Provider CPT E/M Dx Office Visit 09/10/2017 [facility] [place] [address] S46.012A 2:15p C.[facility]annah M75.42 Office Visit 04/24/2017 2:30p [facility] Duc Britton M.D. 21703 R01.1 I49.1 I34.0 E66.9 Z01.810 Office Visit 04/11/2017 1:30p [facility] [address] S46.012A Of [facility] Office Visit 04/01/2017 2:00p [facility] 99854 M75.42 Of Tracy Whitfield MD S46.012A M17.11 Office Visit 03/11/2017 11:30a [facility] [place] [address] M17.11 [facility] Office Visit 11/22/2016 1:00p [facility] [place] [address] M65.4 [facility] Office Visit 09/07/2016 1:45p [facility] [place] [address] M17.11 [facility] M25.561 Office Visit 08/23/2016 2:30p [facility] [place] [address] M23.231 [facility] M75.41 M75.42 Office Visit 11/15/2015 2:00p [facility] Duc Britton, 67718 Z01.810 [place] M54.12 Office Visit 02/24/2015 3:00p [facility] MD Juan Antonio 04895 840.9 [place] 840.6 723.4 Office Visit 02/03/2015 3:20p [facility] MD Juan Antonio 20500 840.9 [place] 840.4 Office Visit 12/17/2006 1:30p [facility]surgery Services Travis Sanchez, 96999 721.3 Of [facility] Office Visit 02/01/2004 8:40a [facility] Duc Britton, 75275 785.2 M.Olegario 785.1 745.5 427.61 Plan of Care 10/10/2017 - Lelia Camacho, MDS46.012A Strain of musc/tend the rotator cuff of left shoulder, initFollow up:Follow up: 14 days post opM75.42 Impingement syndrome of left shoulder
--- OUTSIDE RECORDS SUMMARY | 2017-11-02 12:21 | XMS REPORT ---
:1970 External Reference #:[id number] Author Organization [facility] Address [address] [address] Phone [phone] Care Team Providers Name Role Phone Randi Crowe MD Primary Care Physician Unavailable Payers Type Date Identification Numbers Payment Provider Subscriber Health Maintenance Effective: Policy Number: [facility] Gisselle Blank Neptali Organization (O) 12/22/2001 [id number] Expires: 02/02/2015 PayID: [id number] [address] [address] [place] [address] Commercial Policy Number: [id number] Rodolfo Bettencourth Group Number: [id number] [address] PayID: [id number] [place] [address] Problems Date Description Provider Status Onset: 02/03/2015 [...] Occupation Unemployed ETOH Use Denies alcohol use ETOH Use Rarely consumes alcohol Smoking Patient has never smoked Recreational Drug Use Denies Drug Use Daily Caffeine Does Not Consume Caffeine Exercise Type/Frequency Exercises sporadically water therapy 2x weekly Exercise Type/Frequency walks Exercise Type/Frequency Exercises regularly General Hx Text medical issues impair her ability to work Allergies, Adverse Reactions, Alerts Date Description Reaction Status Severity Comments 02/01/2004 Adhesive Tape active rash 08/23/2016 Biaxin active 04/01/2017 Lexapro active Medications Medication Date Status Form Strength Qnty SIG Indications Ordering Provider Clonazepam 10/14 Active Tablets 1mg prn x2 Harper Britton M.D. Lyrica 04/23 Active Capsules 150mg 1 by mouth twice a day Harper Britton M.D. Straight Cane For 09/17 Active 1unit Shen M Knee maximo Sanchez MD Trazodone HCL Active Tablets [...] dose of 3 Sertraline HCL Active Tablets 200mg take 1 Unknown /0000 tablet by mouth every morning Ra Vitamin B-12 Active Tablets 1000mcg 1 tab po Unknown TR / ER daily Ra Vitamin D-3 Active Tablets 1000Unit take 2 Unknown /0000 tablets by mouth once daily Magnesium Oxide Active Tablets 500mg 1 capsule by Unknown /0000 mouth daily Pt is not currently taking) Prilosec Active 40mg 1-2 tabs q /0000 day Motrin Ib Active prn Unknown [...] Active Tablets 0.15-0.03 Unknown /0000 &0.01 mg Omeprazole Active Capsules 40mg [address] every day Cephalexin 05/20 Hx Tablets 500mg 12tab take 1 by zane s mouth four Yaseen, - times a day 07/13 x 3 days Oxycodone-Acetami 05/20 Hx Tablets 5-325mg 40tab 1-2 tabs by Lelia s mouth every Yaseen, - 4-6 hours as 10/13 needed for pain do not fill until 05/30/17 Acidophilus 04/23 Hx Capsules once daily - 10/13 Cyclobenzaprine 11/14 Hx Tablets 10mg 30tab one by mouth Other s three times Ordering - a day as Provider 08/22 needed spasm Percocet 02/24 Hx Tablets 5-325mg 15tab 1 tab po q 840.9 Fnu /2014 s 8hrs prn Juan Antonio, - pain 11/13 Motrin Ib 02/03 Hx Tablets 600mg 60tab as needed Fnu s qid Seemant, - MD 04/01 Vicodin 02/03 Hx Tablets 5-300mg 15tab 1 tab twice 840.9 Fnu /2014 s daily as Kathyant, - needed for 11/13 pain. Singulair 01/30 Hx Tablets 10mg 30tab one qd am s F. - Mauser, 02/03 M.D. Aciphex 01/30 Hx Tablets 20mg 30tab 2 po qd s F. - Tobi, 02/03 M.D. /2014 Advair Diskus 01/30 Hx Inhaler 500mcg;50 1 PO bid mcg F. - Mauser, 02/03 M.D. /2014 Albuterol 01/30 Hx Aerosol 90mcg/Dos e F. - Tobi, 02/03 M.D. /2014 Triphasil 28 Day 01/30 Hx Tablets 0.03mg;0. 1 PO qd 05mg;0.04 F. - MG Tobi, 02/03 M.D. /2014 Vitamin C 01/30 Hx Capsules 500mg 1 PO qd Harper Britton, 02/03 M.D. Relpax 01/30 Hx Tablets 40mg prn Hannah Britton, 02/03 M.D. Axert 01/30 Hx Tablets 1 po prn migrain Hannah Nowak Adeliacassi, 02/03 M.D. /2014 Lexapro 01/30 Hx Tablets 10mg 30tab 1 PO qd s Harper Nowak Adeliadilshad, 02/02 M.D. /2014 Alprazolam Hx Tablets 0.5mg take 1 Unknown /0000 tablet by - mouth every 11/13 8 hours needed for anxiety maximum joaquim (pt suzetted, MD aware) Prozac Hx Capsules 60mg 1 by mouth Unknown /0000 every day - 11/13 Omeprazole Hx Capsules 40mg 1 po bid Unknown /0000 DR - 09/05 Seasonale / Hx Tablets 0.15-0.03 1 by mouth Unknown [...] times - a day prn 08/22 Clindamycin / Hx Gel 1% apply to Unknown Phosphate /0000 affected - area two 08/22 times daily Tramadol HCL 00 Hx Tablets 50mg take 1 to 2 Unknown /0000 tablets by - mouth three 04/01 times a day /2016 if needed maximum daily Fluoxetine HCL 00/00 Hx Capsules 40mg take 1 Unknown /0000 capsule by - mouth every 11/21 Fluoxetine HCL 0000 Hx Capsules 20mg take 1 Unknown /0000 capsule by - mouth once 11/21 daily With 40 MG Cap Ferrous Sulfate Hx [...] 6 hours needed for Severe Neck An... Loratadine Hx Tablets 10mg 1 tab po Unknown /0000 daily - 10/13 Ashlyna Hx Tablets 0.15-0.03 take 1 Unknown /0000 &0.01 tablet by - mg mouth At The 04/01 Same Every Day Zoloft Hx 150mg Unknown /0000 - 03/24 Vitamin B12 / Hx q day Unknown /0000 - 03/24 Control 00/ Hx Unknown /0000 - 03/24 Probiotic Hx Capsules 1 by mouth Unknown /0000 every day - 03/24 Dulcolax Hx Tablets 5mg take as Unknown /0000 directed for - colonoscopy 03/24 Dexamethasone Hx Tablets 1.5mg Tiara, /0000 Eliu Melgar MD 10/13 Medications Administered in Office Medication Date Status [...] 40MG Rut Sanchez MD Depomedrol Administered Injection Fnu 40MG Sheila Romano MD Vital Signs Date Vital Result Comment 10/14/2017 Height 63.5 inches 5'3.50" Weight 184.00 lb with shoes Heart Rate 64 /min BP Systolic Sitting 120 mmHg Rue reg cuff BP Diastolic Sitting 80 mmHg Rue reg cuff BP Systolic Standing 114 mmHg Rue reg cuff BP Diastolic Standing 76 mmHg Rue reg cuff Respiratory Rate 16 /min BMI (Body Mass Index) 32.1 kg/m2 10/10/2017 Height 64 inches 5'4" Weight 213.00 [...] Information Procedures Date CPT Code Description Status 10/14/2017 94299 EKG Tracing & Interpretation Completed 05/20/2017 99425 Arthroscopy Biceps Tenodesis Completed 05/20/2017 59255 Arthroscopy Biceps Tenodesis Completed 05/20/2017 91974 Arthroscopy Shoulder,W/Rotator Cuff Repair Completed 05/20/2017 36966 Arthroscopy Shoulder,W/Rotator Cuff Repair Completed 05/20/2017 59015 Arthroscopy,Shoulder Decompression Of Subacromial Space Completed W/Acromio 05/20/2017 93669 Arthroscopy,Shoulder Decompression Of Subacromial Space Completed W/Acromio 05/20/2017 49712 Arthroscopy Shoulder Debridement Extensive Completed 05/20/2017 50276 Arthroscopy Shoulder Debridement Limited Completed 04/24/2017 74014 ECHO Transthoracic, Real-Time 2D With Doppler And Color Completed Flow 03/11/201728983 Inject/Drain Joint/Bursa Major Completed 11/22/2016 18092 Inject Tendon Sheath Or Ligament Aponeurosis Eg Plantar Completed Fascia 09/07/2016 36062 Xray Knee 3 Views Completed 09/07/201631662 Inject/Drain Joint/Bursa Major Completed 08/23/201694711 Inject/Drain Joint/Bursa Major Completed 11/15/2015 87017 EKG Tracing & Interpretation Completed 02/03/2015 39133 Rad Shoulder Comp, Min. 2 Views Completed 02/03/201535982 Inject/Drain Joint/Bursa Major Completed 02/01/2004 25313 EKG Tracing & Interpretation Completed 12/10/2003 12352 ECHO/Stress Completed 12/10/2003 03522 Stress Test Completed Encounters Type Date Location Provider CPT E/M Dx Office Visit 09/10/2017 [facility] [place] [address] S46.012A 2:15p [place].Willie M75.42 Office Visit 04/24/2017 2:30p [facility] Duc Britton M.D. 03672 R01.1 I49.1 I34.0 E66.9 Z01.810 Office Visit 04/11/2017 1:30p [facility] [place] [address] S46.012A [facility] Office Visit 04/01/2017 2:00p [facility] Jorje Castañeda 92266 M75.42 [facility] MD S46.012A M17.11 Office Visit 03/11/2017 11:30a [facility] [place] [address] M17.11 [facility] Office Visit 11/22/2016 1:00p [facility] [place] [address] M65.4 [facility] Office Visit 09/07/2016 1:45p [facility] [place] [address] M17.11 [facility] M25.561 Office Visit 08/23/2016 2:30p [facility] [place] [address] M23.231 [facility] M75.41 M75.42 Office Visit 11/15/2015 2:00p [facility] Duc Britton, 28361 Z01.810 M.Olegario M54.12 Office Visit 02/24/2015 3:00p [facility] [place] [address] 840.9 [place] 840.6 723.4 Office Visit 02/03/2015 3:20p [facility] [place] [address] 840.9 [place] 840.4 Office Visit 12/17/2006 1:30p [facility] Travis Sanchez, [address]87[address] 721.3 [facility] M.DHannah Office Visit 02/01/2004 8:40a [facility] Duc Britton, [address]94[address] 785.2 M.DHannah 785.1 745.5 427.61 Plan of Care Future Appointment(s):11/04/2017 11:15 chance Camacho MD at [facility]
[2017-11-02 12:40] VITALS: BP 133/79
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
--- NOTE | 2017-11-02 13:53 | RAD ---
Indication: Chest pain. 2 views of the chest including dual energy PA views demonstrates no mediastinal shift. Heart is of normal size and configuration. Lung rucker appear clear. When compared to previous exam of May 23, 2013 no significant change is noted. IMPRESSION: No active cardiopulmonary disease is noted.
--- NOTE | 2017-11-06 17:18 | UC ---
- Progress Note Progress Note: more nystatin ERxed 5 ml swish and swallow 4x day 480 ml diflucan not eRxed it interacts with oxycodone she needs to see her MD next week if not imroving may need investigation as to the cause of her thrush Discharge - Sign-Out/Discharge Documenting (check all that apply): Discharge/Admit/Transfer - Discharge Plan Condition: Good Disposition: HOME Prescriptions: Nystatin SUSPENSION ORAL SYR* 100,000 units PO QID #120 [facility] Nystatin SUSPENSION ORAL SYR* 5 ml PO QID #480 [facility] Patient Education Materials: Oral Candidiasis (ED), Contusion in Adults (ED) Referrals: Randi Crowe MD [Primary Care Provider] - Additional Instructions: Call your PCP Saturday for an appointment Use mouth wash as directed Tylenol or Motrin for pain as directed Go to ER for increase pain, shortness of breath, fever, or if concerned - Billing Disposition and Condition Condition: GOOD Disposition: HOME
== END 2017-11-02 14:10 | disposition home or self-care (01) ==
LOC: UCCORT 12:06
DX: B37.0 Candidal stomatitis (principal); S20.212A Contusion of left front wall of thorax, initial encounter; V49.88XA Car occupant (driver) (passenger) injured in other specified transport accidents, initial encounter; Y93.9 Activity, unspecified; Y92.9 Unspecified place or not applicable; Z88.1 Allergy status to other antibiotic agents; Z91.030 Bee allergy status; Z88.8 Allergy status to other drugs, medicaments and biological substances; Z91.048 Other nonmedicinal substance allergy status
CPT/HCPCS: 71046; 99212; G0463

== ENCOUNTER 2018-03-17 17:41 | Emergency (ER) | payer OTHER ==
--- OUTSIDE RECORDS SUMMARY | 2018-03-17 18:27 | XMS REPORT | Continuity of Care Document ---
:1970 External Reference #:[id number] Author Name Lorena Chaudhary NP Address [address] [place] [address] Care Team Providers Name Role Phone No Primary Care Physician Unavailable Payers Type Date Identification Numbers Payment Provider Subscriber Effective: 2018 Policy Number: [id number] [facility] Gisselle Bettencourth PayID: [id number] [address] [place] [address] Effective: 2018 Policy Number: [id number] Medicaid -[place] Gisselle Bettencourth PayID: [id number] [address] [place] [address] Advance Directives Description No Information Available Problems Date Description Provider Status Onset: 04/03/2016 Gastroesophageal reflux disease Lorena Chaudhary NP Active Family History Date Family Member(s) Problem(s) Comments General Breast Cancer PGM (alive) and pat. great GM () General Colon Cancer PGF, polyp Father Alive Father Diabetes Father Hypercholesterolemia Father Hypertension Father Thyroid Disease Father Post-Traumatic Stress Disorder (PTSD) Mother Alive Mother Atrial Fibrillation Mother Thyroid Disease Social History Type Date Description Comments Sex Female Education Highest level completed, 2 years of college Marital Status Legal Status: Tobacco Use Start: Unknown Never Smoked Cigars Tobacco Use Start: Unknown Never Smoked A Pipe Tobacco Use Start: Unknown Never Used Smokeless Tobacco ETOH Use Currently consumes alcohol Tobacco Use Start: Unknown Patient has never smoked Recreational Drug Use 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 Condom Use Occasionally Contraceptive Methods Current methods include condoms Age 1st [place] 20 Years Old STD's HPV, High Risk 09/2012 UNKNOWN Never E-Cigarette user Allergies, Adverse Reactions, Alerts Date Description Reaction Status Severity Comments 12/27/2014 Environmental Active 12/27/2014 Grass Active 12/27/2014 Trees Active 12/27/2014 Weeds Active 12/27/2014 Cats Active 12/27/2014 Dogs Active 03/14/2018 Biaxin Active 03/14/2018 Lexapro Active 04/03/2016 NKDA Inactive Medications Medication Date Status Form Strength Qnty SIG Indications Ordering Provider Ferrousul Active Tablets 325(65Fe) 30tabs one po Lorena Narayan 016 mg daily RACHANA Chaudhary Omeprazole Active Unknown 000 Tizanidine Active Unknown HCL 000 Trazodone HCL Active Unknown 000 Lyrica Active Unknown 000 Tramadol HCL Active Unknown 000 Tramadol HCL Active Unknown ER 000 Magnesium 27 Active Unknown 000 Vitamin B 12 Active Unknown 000 Vitamin D3 Active Unknown Complete 000 Loratadine Active Unknown 000 Sertraline Active Unknown HCL 000 Clonazepam Active Unknown 000 Oxycodone HCL Active Unknown 000 Camrese Active Unknown 000 Seasonique Hx Tablets 0.15-0.03&0 84tabs one po Z30.011 Lorena Busch 016 - .01mg daily as Neena directed BUSINESS DEVELOPMENT SPECIALIST 018 Seasonale Hx Tablets 0.15-0.03mg 84tabs take 1 Bettina 015 - daily as Shannon, directed BUSINESS DEVELOPMENT SPECIALIST 016 Iron 0 Hx Unknown 000 - 018 Prozac Hx Unknown 000 - 018 Ashlyna 0 Hx Unknown 000 - 018 Zoloft 0 Hx Unknown 000 - 018 Immunizations Description No Information Available Vital Signs Date Vital Result Comment 03/14/2018 1:08pm BP Systolic 112 mmHg BP Diastolic 75 mmHg Height 63.5 inches 5'3.50" Weight 190.00 lb BMI (Body Mass Index) 33.1 kg/m2 04/03/2016 12:59pm BP Systolic 108 mmHg BP Diastolic 60 mmHg Height 63.5 inches 5'3.50" Weight 172.00 lb BMI (Body Mass Index) 30.0 kg/m2 Results Test Date Facility Test Result H/L Range Note Urinalysis DIP 03/14/2018 [facility] Urine Leukocyte neg. Only.... Esterase QN Urine Nitrite QN neg. Urine Blood neg. Urine PH 6 Urine Protein Random tr Urine Ketone Random neg. Urine Glucose QN Random neg. Thinprep Tis And HPV Rna 04/03/2016 [facility] Results ASCUS/ HPV + 1 HR E6/E7 Tma Christine Annual Lab Set 04/03/2016 [facility] HGB Blood.... 13.2 Urinalysis DIP Only.... 04/03/2016 [facility] Urine Leukocyte N Esterase QN Urine Nitrite QN N Urine Blood N Urine PH 7 Urine Protein Random TR Urine Ketone Random N Urine Glucose QN Random N Laboratory test finding 04/03/2016 [facility] Test Urine..... NEG HIV Rapid... Non Reactive 1 GYNECOLOGICAL CYTOLOGY REPORT THINPREP TIS AND HPV mRNA E6/E7 Thinprep-TIS REPORT STATUS: FINAL CLINICAL INFORMATION: Routine exam SLIDES / SOURCE: 1 / Cervix, Endocervix STATEMENT OF ADEQUACY: Satisfactory for evaluation. Endocervical/transformation zone component present. GENERAL CATEGORIZATION: EPITHELIAL CELL ABNORMALITY INTERPRETATION/RESULT: Atypical Squamous Cells of Undetermined Significance (ASC-US) COMMENT: This Pap test has been evaluated with computer assisted technology. CONCRETE ANALYST: ROSMERY LAMBERT(ASC) For informational Purposes: All cytology specimens are processed and screened at [facility]. [address] [place] [id number] PATHOLOGIST: Jm Perez MD Board Certified in Anatomic and Clinical Pathology (electronic signature) For questions regarding this report call Anatomic Pathology at [phone] HPV mRNA E6/E7 HPV mRNA E6E7 Detected REFERENCE RANGE: NOT DETECTED This test was performed using the APTIMA HPV Assay ([employer] This assay detects E6/E7 viral messenger RNA (mRNA) from 14 high-risk HPV types (16,18,31,33,35,39,45,51,52,56,58,59,66,68). For more information on the limitations of this test, visit: http://[email or web address].com/testcenter/ testguide.action?dc=TS_HPV_HighRiskE6_E7_TMA Procedures Description No Information Available Encounters Description No Information Available Plan of Treatment 03/14/2018 - Lorena Chaudhary, NPZ01.419 Encounter for gynecological examination ( general) (routine)Comments:Reviewed healthy diet, exercise and safety with patient who states understanding.Counseled on Preventive , STI Awareness, Seat Belt Use, and Self Breast ExamFollow up:F/u in one year for annual. Sooner prn any concerns.Z30.41 Encounter for surveillance of contraceptive pillsComments:Due to patient's age and her abstinence, recommend trial off of ocp to see if she is in menopause. Patient to call if menses return and if they are problematic, will go back on ocp.Z12.4 Encounter for screening for malignant neoplasm of okcfjlC28.31 Encounter for screening mammogram for malignant neoplasm ofNew Xrays:Mammography Bilateral, Ordered: R80.0 Isolated proteinuriaComments:Patient states that she recently had labs drawn by Dr. Otero. She is signing a release. Will consider further evaluation after reviewing her recent lab work.
[2018-03-17 18:51] VITALS: BP 120/74
--- NOTE | 2018-03-17 19:02 | UC ---
Skin Complaint HPI - HPI Summary HPI Summary: 47 yo female presents with lesions to her right hand. She tells me that 2 days ago she noticed a red, swollen, and tender bump to her dorsal aspect of her right hand. She mentions that she has been popping and dressing some boils on her sibling - wonders if she caught something that way. Since that time, redness and swelling have increased. Has had some scant drainage with squeezing. Denies fever, chills. - History of Current Complaint Chief Complaint: UCSkin Time Seen by Provider: 03/17/18 19:01 Stated Complaint: WOUND RECHECK Hx Obtained From: Patient Hx Last Menstrual Period: ~09/21/17 Onset/Duration: Sudden Onset Onset Severity: Mild Current Severity: Moderate Pain Intensity: 5 Pain Scale Used: 0-10 Numeric - Allergy/Home Medications Allergies/Adverse Reactions: Allergies Allergy/AdvReac Type Severity Reaction Status Date / Time Adhesive Tape Allergy Severe pulls skin Verified 03/17/18 18:52 off when take tape off bee venom protein (honey bee) Allergy GI Upset Verified 03/17/18 18:52 and Near Syncope clarithromycin [From Biaxin] Allergy Itching Verified 03/17/18 18:52 escitalopram [From Lexapro] Allergy Agitation Verified 03/17/18 18:52 Environmental Allergies Allergy Eyes Uncoded 03/17/18 18:52 Itchy/Swollen/Red/Watery Home Medications: Home Medications Pregabalin CAP(*) [Lyrica CAP(*)] 150 mg PO TID 03/17/18 [History Confirmed ] clonazePAM TAB(*) [KlonoPIN TAB(*)] 1 mg PO TID PRN 03/17/18 [History Confirmed 03/17/18] Review of Systems Constitutional: Negative Skin: Other - Lesion right hand Respiratory: Negative Cardiovascular: Negative Neurovascular: Negative Neurological: Negative Psychological: Negative All Other Systems Reviewed And Are Negative: Yes PMH/Surg Hx/FS Hx/Imm Hx GI/ History: Gastroesophageal Reflux Psychological History: Anxiety, Depression, Bipolar Disorder - Surgical History Surgical History: Yes Surgery Procedure, Year, and Place: Left Shoulder Rotator Cuff, 2018, [facility] [place]; Left Shoulder Rotator Cuff, 2017, [facility] [place]; 1980-- T&A. BARIATRIC SURGERY 2004 [place]. 1993--C-SECT Rom. 2010--CHOLECYSTECTOMY [facility] [place]. C6-C7 NECK FUSION- 2015 LT SHOULDER - ROTATOR CUFF AND REATTACHED BICEP TENDON [facility] [place] - Family History Known Family History: Positive: Hypertension - Social History Occupation: Employed Full-time Lives: With Family Alcohol Use: None Substance Use Type: None Smoking Status (MU): Never Smoked Tobacco Household Exposure Type: Cigarettes Physical Exam - Summary Physical Exam Summary: GENERAL: NAD. WDWN. No pain distress. SKIN: RIGHT hand: Dorsal aspect about the 4th MCP with 5mm superficial wound. Scant yellow discharge. Mild purulent matter expressed with squeezed. Mild edema and erythema surrounding the area going down the 4th MC. NECK: Supple. Nontender. No lymphadenopathy. CHEST: No accessory muscle use. Breathing comfortably and in no distress. CV: Pulses intact. Cap refill <2seconds MSK:FROM right wrist and all fingers without pain. NEURO: Alert. PSYCH: Age appropriate behavior. Triage Information Reviewed: Yes Vital Signs: Initial Vital Signs Temp 98.9 F 03/17/18 18:46 Pulse 58 03/17/18 18:46 Resp 16 03/17/18 18:46 BP 120/74 03/17/18 18:46 Pulse Ox 100 03/17/18 18:46 Vital Signs Reviewed: Yes Course/Dx - Course Course Of Treatment: Would culture obtained. Will start her with augmentin for cellulitis and wait for culture results. - Diagnoses Provider Diagnoses: Cellulitis right hand Discharge - Sign-Out/Discharge Documenting (check all that apply): Patient Departure All imaging exams completed and their final reports reviewed: No Studies - Discharge Plan Condition: Stable Disposition: HOME Prescriptions: Amoxicillin/Clavulanate TAB* [Augmentin TAB 875*] 875 mg PO BID #14 tab Fluconazole [Diflucan 150 MG (NF)] 150 mg PO ONCE #1 tab Patient Education Materials: Wound Infection (ED) Referrals: Randi Crowe MD [Primary Care Provider] - Additional Instructions: If you develop a fever, shortness of breath, chest pain, new or worsening symptoms - please call your PCP or go to the ED. - Billing Disposition and Condition Condition: STABLE Disposition: Home - Attestation Statements Provider Attestation: I was available for consult. This patient was seen by the [facility]. The patient was not presented to, seen by, or examined by me. -Sandra
--- NOTE | 2018-03-18 21:51 | UC ---
- Progress Note Progress Note: 03/19/2018 Wound culture positive for MRSA and Staph Aureus. pt Rx Augmentin PO Please call back patient and advised new prescriptions sent to pharmacy for Bactrim PO. Thank you Matilde Flores PA-C Discharge - Sign-Out/Discharge Documenting (check all that apply): Patient Departure - D/c home All imaging exams completed and their final reports reviewed: No Studies - Discharge Plan Condition: Stable Disposition: HOME Prescriptions: Amoxicillin/Clavulanate TAB* [Augmentin TAB 875*] 875 mg PO BID #14 tab Fluconazole [Diflucan 150 MG (NF)] 150 mg PO ONCE #1 tab Patient Education Materials: Wound Infection (ED) Referrals: Randi Crowe MD [Primary Care Provider] - Additional Instructions: If you develop a fever, shortness of breath, chest pain, new or worsening symptoms - please call your PCP or go to the ED. - Billing Disposition and Condition Condition: STABLE Disposition: Home
== END 2018-03-17 19:46 | disposition home or self-care (01) ==
LOC: UCEAST 17:41
DX: L03.113 Cellulitis of right upper limb (principal); B95.62 Methicillin resistant Staphylococcus aureus infection as the cause of diseases classified elsewhere; F41.9 Anxiety disorder, unspecified; Z88.1 Allergy status to other antibiotic agents; Z91.030 Bee allergy status; Z88.8 Allergy status to other drugs, medicaments and biological substances; Z91.048 Other nonmedicinal substance allergy status
CPT/HCPCS: 87070; 87205; 87640; 87641; 99212; G0463

== ENCOUNTER 2018-05-24 20:31 | Emergency (ER) | payer OTHER ==
--- OUTSIDE RECORDS SUMMARY | 2018-05-24 20:45 | XMS REPORT | Continuity of Care Document ---
:1970 External Reference #:[id number] Author Name Lorena Novak Care Team Providers Name Role Phone Randi Crowe MD Primary Care Physician Unavailable Payers Type Date Identification Numbers Payment Provider Subscriber Effective: 2001 Policy Number: [id number] [facility] Gisselle Gunderson Expires: 2015 PayID: [id number] [address] [address] [place] [address] Policy Number: [id number] [employer] Number: [id number] [address] PayID: [id number] [place] [address] Advance Directives Description No Information Available Problems Date Description Provider Status Onset: 02/03/2015 Sprain of shoulder and upper arm Rahel Romano MD Active Onset: 11/07/2017 Full thickness rotator cuff tear Lelia Camacho MD Active Onset: 03/26/2018 Chronic hepatitis C Jair Andrews MD Active Note: 04/25/18 pt denied IV drug use; she has had needle sticks, some tattoos in the since 2009 and some sexual partners have had tattoos. Onset: 04/27/2010 Posttraumatic stress disorder Jair Andrews MD Active Onset: 04/27/2004 Anxiety disorder Jair Andrews MD Active Onset: 04/27/2011 Chronic pain Jair Andrews MD Active Note: spinal axis with cervical fusion 2016 Onset: 04/27/2011 Fibromyalgia Jair Andrews MD Active Onset: 04/27/1992 Morbid obesity Jair Andrews MD Active Note: high weight was 308 down to 190 in 2008 then 213 spring 2017 and Apr 2018 191 Onset: 04/27/2004 History of bariatric surgical procedure Jair Andrews MD Active Note: preop 308 Family History Date Family Member(s) Problem(s) Comments General No Current Problems Onset: (11/15/2015) Father Hypertension (age 69 Years) Mother afib, cardioverted x 1 Onset: (11/15/2015) Mother Alive And Well (age 70 Years) Siblings 2 no known cardiac issues Social History Type Date Description Comments Sex Unknown Marital Status Single Lives With Alone Occupation Unemployed ETOH Use Denies alcohol use ETOH Use Rarely consumes alcohol Tobacco Use Start: Unknown Patient has never smoked Recreational Drug Use Denies Drug Use Smoking Status Reviewed: 05/12/18 Patient has never smoked Exercise Type/Frequency Exercises sporadically water therapy 2x weekly Exercise Type/Frequency walks Exercise Type/Frequency Exercises regularly Allergies, Adverse Reactions, Alerts Date Description Reaction Status Severity Comments 02/01/2004 Adhesive Tape Active rash 08/23/2016 Biaxin Active 04/01/2017 Lexapro Active Medications Medication Date Status Form Strength Qnty SIG Indications Ordering Provider Tramadol HCL 05/12 Active Tablets 50mg 40tab 1 tablet s three to Varn, four times N.P. daily as needed Clonazepam 10/14 Active Tablets 1mg tid prn Harper Britton M.D. Lyrica 04/23 Active Capsules 150mg 1 by mouth three times F. a day Ammon Britton Straight Cane For 09/17 Active 1unit Shen M Knee maximo Sanchez MD Trazodone HCL Active Tablets 100mg 1/2 - 1 by Unknown /0000 mouth every night at bedtime Tizanidine HCL Active Capsules 4mg 1 by mouth Unknown /0000 tid prn Iron Active Tablets 325(65Fe) 1 by mouth Unknown /0000 mg every day Sertraline HCL Active Tablets 200mg take 1 /0000 tablet by mouth every morning Ra Vitamin B-12 Active Tablets 1000mcg 1 tab po Unknown ER daily Ra Vitamin D-3 Active Tablets 1000Unit take 2 tablets by mouth once daily Magnesium Oxide Active Tablets 500mg 1 capsule by / mouth daily Pt is not currently taking) Motrin Ib Active prn Tums Active Chewtabs 500mg 2 chewtabs Unknown by mouth daily Excedrin Migraine Active Tablets 250-250-6 1 tab twice 5mg a day as needed for migraine Imodium A-D Active Capsules 2mg 1 by mouth Unknown twice a day, as needed diarrhea Omeprazole Active Capsules 40mg [address] every day Loratadine Active Tablets 10mg 1 by mouth every day as needed Oxycodone HCL 11/03 Hx Tablets 10mg 30tab take 1-2 tab Lelia s every 6 Yaseen, - hours as 03/14 needed pain Oxycodone HCL 10/23 Hx Tablets 5mg 40tab 1-2 tabs by zane s mouth every Yaseen, - 4-6 hours as 03/14 needed Cephalexin 10/23 Hx Tablets 500mg 12tab take 1 by zane s mouth four Yaseen, - times a day 03/14 x 3 days Cephalexin 05/20 Hx Tablets 500mg 12tab take 1 by zane s mouth four Yaseen, - times a day 07/13 x 3 days Oxycodone-Acetami 05/20 Hx Tablets 5-325mg 40tab 1-2 tabs by Lelia monge s mouth every Yaseen, - 4-6 hours as 10/13 needed for pain do not fill until 05/30/17 Acidophilus 04/23 Hx Capsules once daily - 10/13 Cyclobenzaprine 11/14 Hx Tablets 10mg 30tab one by mouth Other s three times Ordering - a day as Provider 08/22 needed spasm Percocet 02/24 Hx Tablets 5-325mg 15tab 1 tab po q 840.9 Fnu s 8hrs prn Seemant, - pain 11/13 Motrin Ib 08/13 Hx Tablets 600mg 60tab as needed s qid Juan Antonio, - 04/01 Vicodin 02/03 Hx Tablets 5-300mg 15tab 1 tab twice 840.9 Fn s daily as Juan Antonio, - needed for 11/13 pain Singulair 01/30 Hx Tablets 10mg 30tab one qd am s F. - Mauser, 02/03.D. Aciphex 01/30 Hx Tablets 20mg 30tab 2 po qd s F. - Mauser, 02/03.D. Advair Diskus 01/30 Hx Inhaler 500mcg;50 1 PO bid mcg F. - Mauser, 02/03.D. Albuterol 01/30 Hx Aerosol 90mcg/Dos e F. - Mause, 02/03.D. Triphasil 28 Day 01/30 Hx Tablets 0.03mg;0. 1 PO qd 05mg;0.04 F. - MG Mauser, 02/03.D. Vitamin C 01/30 Hx Capsules 500mg 1 PO qd F. - Mauser, 02/03.D. Relpax 01/30 Hx Tablets 40mg prn F. - Mauser, 02/03.D. Axert 01/30 Hx Tablets 1 po prn migrain F. - Mauser, 02/03.D. Lexapro 01/30 Hx Tablets 10mg 30tab 1 PO qd s F. - Mauser, 02/02 M.D. Alprazolam Hx Tablets 0.5mg take 1 Unknown /0000 tablet by - mouth every 11/13 8 hours /2015 needed for anxiety maximum joaquim (pt dcd, aware) Prozac 00 Hx Capsules 60mg 1 by mouth Unknown /0000 every day - 11/13 Omeprazole Hx Capsules 40mg 1 po bid Unknown /0000 DR - 09/05 Seasonale 00/00 Hx Tablets 0.15-0.03 1 by mouth Unknown /0000 mg every day - 11/13 Escitalopram 00/ Hx Tablets 10mg 1 by mouth Unknown Oxalate /0000 every day - 08/22 Loperamide HCL Hx Capsules 2mg take one Unknown /0000 capsule by - mouth every 04/01 6 hours as needed Lyrica 00/ Hx Capsules 75mg 1 by mouth Unknown /0000 twice a day - 04/24 Gabapentin 00 Hx Capsules 300mg 1 by mouth Unknown /0000 bid - 11/21 Benadryl Allergy Hx Tablets 25mg 2 tablet by Unknown /0000 mouth qhs as - needed 08/22 Clonazepam Hx Tablets 2mg 1 by mouth Unknown /0000 three times - a day prn 08/22 Clindamycin Hx Gel 1% apply to Unknown Phosphate /0000 affected - area two 08/22 times Tramadol HCL Hx Tablets 50mg take 1 to 2 Unknown /0000 tablets by - mouth three 04/01 times a day if needed maximum daily Fluoxetine HCL 00 Hx Capsules 40mg take 1 Unknown /0000 capsule by - mouth every 11/21 Fluoxetine HCL Hx Capsules 20mg take 1 Unknown /0000 capsule by - mouth once 11/21 daily With 40 MG Cap Diazepam Hx Tablets 10mg take 1 Unknown /0000 tablet by - mouth three 04/24 times a day maximum daily dose of 3 Ferrous Sulfate Hx Tablets 325(65Fe) Take 1 Unknown /0000 mg Tablet By - Mouth Every Colace Hx Capsules 100mg 1 by mouth Unknown /0000 up to 3 - times a day 04/01 as needed for constipation . Pantoprazole 00/00 Hx Tablets 40mg 1 po qday Olarewajesenia Sodium /0000 , - [facility], 03/05 Oxycodone-Acetami Hx Tablets 7.5-325mg take 1 Unknown nophen /0000 tablet by - mouth every 04/01 6 hours needed for Severe Neck An... Loratadine / Hx Tablets 10mg 1 tab po Unknown /0000 daily - 10/13 Ashlyna 00/ Hx Tablets 0.15-0.03 take 1 Unknown /0000 &0.01mg tablet by - mouth AT The 04/01 Every Day Zoloft Hx 150mg Unknown / - 03/24 Prilosec Hx 40mg 1-2 tabs q Unknown / day - 04/24 Vitamin B12 Hx q day Unknown / - 03/24 Control / Hx Unknown / - 03/24 Endocet Hx Tablets 10-325mg Unknown / - 04/24 Probiotic Hx Capsules 1 by mouth Unknown / every day - 03/24 Dulcolax Hx Tablets 5mg take as Unknown / DR valenzuela for - colonoscopy 03/24 Ashlyna Hx Tablets 0.15-0.03 Unknown / &0.01mg - 04/24 Dexamethasone Hx Tablets 1.5mg Tiara, /0000 Eliu [...] MD Laura Depomedrol Administered Injection Fnu 40MG 015 MD Juan Antonio Immunizations Description No Information Available Vital Signs Date Vital Result Comment 05/12/2018 2:14pm Height 63 inches 5'3" Weight 198.25 lb Heart Rate 73 /min BP Systolic 110 mmHg BP Diastolic 74 mmHg Body Temperature 97.8 F O2 % BldC Oximetry 97 % BMI (Body Mass Index) 35.1 kg/m2 04/25/2018 10:10am Height 63.5 inches 5'3.50" Weight 191.50 lb Heart Rate 63 /min BP Systolic 116 mmHg BP Diastolic 75 mmHg Respiratory Rate 18 /min Body Temperature 97.3 F O2 % BldC Oximetry 96 % BMI (Body Mass Index) 33.4 kg/m2 04/15/2018 1:12pm Height 63.5 inches 5'3.50" Heart Rate 72 /min BP Systolic Sitting 122 mmHg BP Diastolic Sitting 66 mmHg Respiratory Rate 16 /min Body Temperature 98.1 F Pain Level 2 03/06/2018 1:29pm Height 63.5 inches 5'3.50" Weight 190.00 lb Heart Rate 76 /min BP Systolic 122 mmHg BP Diastolic 70 mmHg Respiratory Rate 12 /min Pain Level 5 BMI (Body Mass Index) 33.1 kg/m2 01/16/2018 1:53pm Height 63.5 inches 5'3.50" Weight 184.00 lb Heart Rate 66 /min BP Systolic Sitting 124 mmHg BP Diastolic Sitting 76 mmHg Respiratory Rate 16 /min Pain Level 5 BMI (Body Mass Index) 32.1 kg/m2 12/05/2017 1:28pm Height 63.5 inches 5'3.50" Weight 184.00 lb BP Systolic 116 mmHg BP Diastolic 64 mmHg Respiratory Rate 18 /min Pain Level 5 BMI (Body Mass Index) 32.1 kg/m2 11/07/2017 1:21pm Height 63.5 inches 5'3.50" Weight 184.00 lb Heart Rate 68 /min BP Systolic 110 mmHg BP Diastolic 70 mmHg Body Temperature 97.2 F Pain Level 5 BMI (Body Mass Index) 32.1 kg/m2 10/14/2017 10:22am Height 63.5 inches 5'3.50" Weight 184.00 lb with shoes Heart Rate 64 /min BP Systolic Sitting 120 mmHg Rue reg cuff BP Diastolic Sitting 80 mmHg Rue reg cuff BP Systolic Standing 114 mmHg Rue reg cuff BP Diastolic Standing 76 mmHg Rue reg cuff Respiratory Rate 16 /min BMI (Body Mass Index) 32.1 kg/m2 10/10/2017 1:29pm Height 64 inches 5'4" Weight 213.00 lb Heart Rate 64 /min BP Systolic Sitting 122 mmHg BP Diastolic Sitting 70 mmHg Respiratory Rate 16 /min Pain Level 8 BMI (Body Mass Index) 36.6 kg/m2 09/10/2017 2:14pm Height 64 inches 5'4" Weight 213.00 lb Heart Rate 66 /min BP Systolic Sitting 130 mmHg BP Diastolic Sitting 86 mmHg Respiratory Rate 16 /min Pain Level 6 BMI (Body Mass Index) 36.6 kg/m2 08/06/2017 1:57pm Height 64 inches 5'4" Heart Rate 66 /min Respiratory Rate 17 /min Body Temperature 97.6 F Pain Level 6 07/02/2017 1:31pm Height 64 inches 5'4" Weight 213.00 lb BP Systolic 128 mmHg BP Diastolic 78 mmHg Respiratory Rate 20 /min Pain Level 7 BMI (Body Mass Index) 36.6 kg/m2 05/28/2017 1:15pm Height 64 inches 5'4" Weight 213.00 lb Respiratory Rate 14 /min Pain Level 8 BMI (Body Mass Index) 36.6 kg/m2 05/09/2017 1:06pm Height 64 inches 5'4" Weight 213.00 lb BP Systolic 124 mmHg BP Diastolic 70 mmHg Respiratory Rate 18 /min Body Temperature 97.7 F Pain Level 6 BMI (Body Mass Index) 36.6 kg/m2 04/24/2017 2:33pm Height 64 inches 5'4" Weight 213.00 lb with shoes Heart Rate 68 /min BP Systolic Sitting 138 mmHg LA reg cuff BP Diastolic Sitting 90 mmHg LA reg cuff BMI (Body Mass Index) 36.6 kg/m2 Ejection Fraction 63% stress test 12/10/03 04/11/2017 1:43pm Height 64 inches 5'4" Weight 210.00 lb BP Systolic 128 mmHg BP Diastolic 74 mmHg Respiratory Rate 18 /min Pain Level 5 BMI (Body Mass Index) 36.0 kg/m2 04/01/2017 2:55pm Height 64 inches 5'4" Weight 210.00 lb Heart Rate 60 /min BP Systolic 119 mmHg BP Diastolic 81 mmHg Body Temperature 97.5 F BMI (Body Mass Index) 36.0 kg/m2 03/11/2017 11:52am Height 64 inches 5'4" Weight 210.00 lb Heart Rate 76 /min BP Systolic Sitting 122 mmHg BP Diastolic Sitting 78 mmHg Respiratory Rate 16 /min Pain Level 8 BMI (Body Mass Index) 36.0 kg/m2 11/22/2016 1:11pm Height 64 inches 5'4" Weight 190.00 lb Heart Rate 76 /min BP Systolic 124 mmHg BP Diastolic 68 mmHg Respiratory Rate 16 /min Pain Level 8 BMI (Body Mass Index) 32.6 kg/m2 09/07/2016 1:57pm Height 64 inches 5'4" Weight 184.00 lb Heart Rate 72 /min BP Systolic Sitting 90 mmHg BP Diastolic Sitting 58 mmHg Respiratory Rate 18 /min Pain Level 5 BMI (Body Mass Index) 31.6 kg/m2 08/23/2016 1:55pm Height 64 inches 5'4" Weight 190.00 lb Heart Rate 72 /min BP Systolic Sitting 104 mmHg BP Diastolic Sitting 58 mmHg Respiratory Rate 18 /min BMI (Body Mass Index) 32.6 kg/m2 11/15/2015 1:40pm Height 64 inches 5'4" Weight 169.00 lb with shoes Heart Rate 74 /min BP Systolic 128 mmHg LA reg cuff BP Diastolic 86 mmHg LA reg cuff BMI (Body Mass Index) 29.0 kg/m2 Ejection Fraction 60% - 65% echo 02/10/2002 02/24/2015 4:12pm Height 64 inches 5'4" Weight 170.00 lb Heart Rate 78 /min BP Systolic Sitting 124 mmHg BP Diastolic Sitting 80 mmHg BMI (Body Mass Index) 29.2 kg/m2 02/03/2015 3:54pm Height 64 inches 5'4" Weight 170.00 lb Heart Rate 78 /min BP Systolic Sitting 126 mmHg BP Diastolic Sitting 80 mmHg BMI (Body Mass Index) 29.2 kg/m2 02/01/2004 9:29am Height 65 inches 5'5" Weight 308.00 lb Heart Rate 77 /min BP Systolic Sitting 130 mmHg left arm, right arm 124/82 BP Diastolic Sitting 80 mmHg left arm, right arm 124/82 BP Systolic Standing 128 mmHg BP Diastolic Standing 80 mmHg O2 % BldC Oximetry 97 % BMI (Body Mass Index) 51.2 kg/m2 Results Test Date Facility Test Result H/L Range Note CBC Auto Diff 04/25/2018 [facility] White Blood 6.4 10^3/uL N 3.5-10.[address] [place] [address] [phone] Red Blood Count 4.09 10^6/uL N 4.00-5.40 Hemoglobin 13.3 g/dL N 12.0-16.0 Hematocrit 39 % N 35-47 Mean Corpuscular Volume 97 fL N 80-97 Mean Corpuscular Hemoglobin 33 pg High 27-31 Mean Corpuscular HGB Conc 34 g/dL N 31-36 Red Cell Distribution Width 13 % N 10.5-15 Platelet Count 186 10^3/uL N 150-450 Mean Platelet Volume 9.5 fL N 7.4-10.4 Abs Neutrophils 2.8 10^3/uL N 1.5-7.7 Abs Lymphocytes 2.7 10^3/uL N 1.0-4.8 Abs Monocytes 0.6 10^3/uL N 0-0.8 Abs Eosinophils 0.3 10^3/uL N 0-0.6 Abs Basophils 0 10^3/uL N 0-0.2 Abs Nucleated RBC 0 10^3/uL Granulocyte % 43.4 % N 38-83 Lymphocyte % 42.3 % N 25-47 Monocyte % 8.7 % High 0-7 Eosinophil % 4.9 % N 0-6 Basophil % 0.7 % N 0-2 Nucleated Red Blood Cells % 0.1 Comp Metabolic Panel 04/25/2018 [facility] Sodium 139 mmol/L N 135-145 [address] [place] [address] [phone] Potassium 4.2 mmol/L N 3.5-5.0 Chloride 103 mmol/L N 101-111 Co2 Carbon Dioxide 32 mmol/L N 22-32 Anion Gap 4 mmol/L N 2-11 Glucose 92 mg/dL N 70-100 Blood Urea Nitrogen 12 mg/dL N 6-24 Creatinine 0.72 mg/dL N 0.51-0.95 BUN/Creatinine Ratio 16.7 N 8-20 Calcium 9.5 mg/dL N 8.6-10.3 Total Protein 7.1 g/dL N 6.4-8.9 Albumin 4.3 g/dL N 3.2-5.2 Globulin 2.8 g/dL N 2-4 Albumin/Globulin Ratio 1.5 N 1-3 Total Bilirubin 0.40 mg/dL N 0.2-1.0 Alkaline Phosphatase 94 U/L N 34-104 Alt 18 U/L N 7-52 Ast 27 U/L N 13-39 Egfr Non- 86.5 >60 Egfr 104.6 >60 1 Laboratory test 04/25/2018 [facility] C Reactive < 1.00 mg/L N <8.[address] [address] [phone] Ferritin 40.1 ng/mL N 11-307 Iron & Iron Binding 04/25/2018 [facility] Iron 195 g/dL N 50 -[address] [place] [address] [phone] Unsaturated Iron Binding 294 g/dL Total Iron Binding Capacity 489 g/dL High 250-450 Transferrin 349 mg/dL N 203-362 % Iron Saturation 40 % N 15-55 Laboratory test 04/25/2018 [facility] Vitamin B12 594 pg/mL N 180-914 [address] [place] [address] [phone] 1 Because ethnic data is not always readily available, this report includes an eGFR for both -Americans and non- Americans. The National Kidney Disease Education Program (NKDEP) does not endorse the use of the MDRD equation for patients that are not between the ages of 18 and 70, are , have extremes of body size, muscle mass, or nutritional status, or are non- or non-. According to the National Kidney Foundation, irrespective of diagnosis, the stage of the disease is based on the level of kidney function: Stage Description GFR(mL/min/1.73 m(2)) 1 Kidney damage with normal or decreased GFR 90 2 Kidney damage with mild decrease in GFR 60-89 3 Moderate decrease in GFR 30-59 4 Severe decrease in GFR 15-29 5 Kidney failure <15 (or dialysis) 2 Normal Range 180 to 914 Indeterminate Range 145 to 180 Deficient Range <145 Procedures Date Code Description Status 10/23/2017 96553 Arthroscopy Shoulder,W/Rotator Cuff Repair Completed 10/23/2017 33646 Arthroscopy Shoulder,W/Rotator Cuff Repair Completed 10/23/2017 56728 Arthroscopy Shoulder Debridement Extensive Completed 10/23/2017 23522 Arthroscopy Shoulder Debridement Extensive Completed 10/14/2017 53705 EKG Tracing & Interpretation Completed 05/20/2017 65687 Arthroscopy Shoulder Debridement Limited Completed 05/20/2017 50695 Arthroscopy Shoulder Debridement Extensive Completed 05/20/2017 99760 Arthroscopy,Shoulder Decompression Of Subacromial Space Completed W/Acromio 05/20/2017 18073 Arthroscopy,Shoulder Decompression Of Subacromial Space Completed W/Acromio 05/20/2017 74036 Arthroscopy Shoulder,W/Rotator Cuff Repair Completed 05/20/2017 73577 Arthroscopy Shoulder,W/Rotator Cuff Repair Completed 05/20/2017 25014 Arthroscopy Biceps Tenodesis Completed 05/20/2017 83979 Arthroscopy Biceps Tenodesis Completed 04/24/2017 56459 ECHO Transthoracic, Real-Time 2D With Doppler And Color Completed Flow 03/11/201752264 Inject/Drain Joint/Bursa Major W/O US Completed 11/22/2016 56585 Inject Tendon Sheath Or Ligament Aponeurosis Eg Plantar Completed Fascia 09/07/2016 03402 Xray Knee 3 Views Completed 09/07/201652607 Inject/Drain Joint/Bursa Major W/O US Completed 08/23/201633892 Inject/Drain Joint/Bursa Major W/O US Completed 11/15/2015 60808 EKG Tracing & Interpretation Completed 02/03/2015 22325 Rad Shoulder Comp, Min. 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 M75.122 Complete rotatr-cuff tear/ruptr of left shoulder, not trauma M75.02 Adhesive capsulitis of left shoulder M75.41 Impingement syndrome of right shoulder Office Visit 03/06/2018 1:15p Orthopedic Lelia Camacho, M75.122 Complete Services Of MD brunsontr-cuff C.M.A. tear/ruptr of left shoulder, not trauma Z47.89 Encounter for other orthopedic aftercare Office Visit 10/14/2017 10:20a Froylan Busch75.112 Incomplete Cardiology Of Ammon Britton rotatr-cuff Crissy tear/ruptr of l shoulder, not trauma R00.2 Palpitations Office Visit 10/10/2017 1:30p Orthopedic Lelia Camacho, S46.012A Strain of Services Of musc/tend the C.M.A. rotator cuff of left shoulder, init M75.42 Impingement syndrome of left shoulder Office Visit 09/10/2017 2:15p Orthopedic Lelia Camacho, S46.012A Strain of Services Of MD mcdonald/ifrah the C.M.A. rotator cuff of left shoulder, init M75.42 Impingement syndrome of left shoulder Office Visit 04/24/2017 2:30p [facility] Duc Saleem R01.1 Cardiac murmur, Ammon Britton unspecified I49.1 Atrial premature depolarization I34.0 Nonrheumatic mitral (valve) insufficiency E66.9 Obesity, unspecified Z01.810 Encounter for preprocedural cardiovascular examination Office Visit 04/11/2017 Orthopedic Lelia Camacho S46.012A Strain of 1:30p Services Of MD mcdonald/ifrah the C.M.A. rotator cuff of left shoulder, init Office Visit 04/01/2017 Orthopedic Jorje Castañeda M75.42 Impingement 2:00p Services Of MD Nahid syndrome of left C.M.A. shoulder S46.012A Strain of amadeo the rotator cuff of left shoulder, init M17.11 Unilateral primary osteoarthritis, right knee Office Visit 03/11/2017 Orthopedic Shen Busch M17.11 Unilateral primary 11:30a Services Of Crissy Sanchez MD osteoarthritis, right AT [place] knee Office Visit 11/22/2016 Orthopedic Shen Busch M65.4 Radial styloid 1:00p Services Of Crissy Sanchez MD tenosynovitis [de AT [place] Quervain] Office Visit 09/07/2016 Orthopedic Shen Bushc M17.11 Unilateral primary 1:45p Services Of Crissy Sanchez MD osteoarthritis, right AT [place] knee M25.561 Pain in right knee Office Visit 08/23/2016 2:30p Orthopedic Shen Busch M23.231 Derang of medial Services Of Crissy Sanchez MD meniscus due to AT [place] old tear/inj, right knee M75.41 Impingement syndrome of right shoulder M75.42 Impingement syndrome of left shoulder Office Visit 11/15/2015 [facility] Duc Saleem Z01.810 Encounter for 2:00p Cardiology Ammon Britton preprocedural cardiovascular examination M54.12 Radiculopathy, cervical region Office Visit 02/24/2015 3:00p Sports Medicine Fnu Seemant, MD 840.9 Sprains & Of [facility] AT Strains Shoulder [place] & Upper Arm Unspec 840.6 Sprains & Strains Supraspinatus (Muscle)(Tendon) 723.4 Brachial Neuritis Or Radiculitis NOS Office Visit 02/03/2015 3:20p Sports Medicine Rahel Romano MD 840.9 Sprains & Of [facility] Operator AT Strains Shoulder Rom & Upper Arm Unspec 840.4 Sprains & Strains Rotator Cuff (Capsule) Office Visit 12/17/2006 1:30p Neurosurgery Travis Lau 721.3 Spondylosis Services Of [facility] Ammon Sanchez 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 Office Visit 02/01/2004 8:40a [facility] Duc Saleem 785.2 Murmur Cardiac Ammon Britton Undiagnosed 785.1 Palpitations 745.5 Atrial Septal Defect Ostium Secundum Type 427.61 Premature Beats Supraventricular Plan of Treatment Future Appointment(s):07/15/2018 2:00 pm - Paulette Shepherd MD at [facility] Internal Medicine [facility]05/30/2018 3:15 pm - Jair Andrews MD at [facility] Tanjtkmhtlzoymwz00/04/2018 2:15 pm - [facility] - Paulette Shepherd, MDR87.820 Cervical low risk human papillomavirus (HPV) Dna test positiComments:ROSE Pap ueuzyeT02.4 Chronic pain syndromeReferral:Pain Clinic, Pain/Clinic/CTRFollow up:f/u Jun
--- OUTSIDE RECORDS SUMMARY | 2018-05-24 20:45 | XMS REPORT ---
:1970 External Reference #:[id number] Author Organization [facility] Address [address] [address] [place] [address] Phone [phone] Care Team Providers Name Role Phone Randi Crowe MD Primary Care Physician Unavailable Payers Type Date Identification Numbers Payment Provider Subscriber Health Maintenance Effective: Policy Number: [facility] Gisselle Blank Neptali Organization (O) 12/22/2001 [id number] Expires: 02/02/2015 PayID: [id number] [address] [address] [place] [address] Commercial Policy Number: [id number] Rodolfo [employer] Group Number: [id number] [address] PayID: [id number] [place] [address] Problems Date Description Provider Status Onset: 02/03/2015 Sprain of shoulder and upper arm Abbyu MD Juan Antonio Active Onset: 05/28/2017 Disorder of shoulder Lelia Camacho MD Active Onset: 04/15/2018 Shoulder joint pain Lelia Camacho MD Active Onset: 11/07/2017 Full thickness rotator cuff tear Lelia Camacho MD Active Family History Date [...] not currently taking) Motrin Ib Active prn Unknown /0000 Tums Active Chewtabs 500mg 2 chewtabs Unknown /0000 by mouth daily Excedrin Migraine Active Tablets 250-250-6 1 tab twice /0000 5mg a day as needed for migraine Imodium A-D Active Capsules 2mg 1 by mouth Unknown /0000 twice a day, as needed diarrhea Omeprazole Active Capsules 40mg 1 by mouth Unknown /0000 DR every day Loratadine Active Tablets 10mg 1 by mouth Unknown /0000 every day as needed Oxycodone HCL 11/03 Hx Tablets 10mg 30tab take 1-2 tab antoine s every 6 Yaseen, - hours as 03/14 needed pain Oxycodone HCL 10/23 Hx Tablets 5mg 40tab 1-2 tabs by s mouth every Yaseen, - 4-6 hours as 03/14 needed Cephalexin 10/23 Hx Tablets 500mg 12tab take 1 by s mouth four Yaseen, - times a day 03/14 x 3 days Cephalexin 05/20 Hx Tablets 500mg 12tab take 1 by s mouth four Yaseen, - times a day 07/13 x 3 days Oxycodone-Acetami 05/20 Hx Tablets 5-325mg 40tab 1-2 tabs by antoine s mouth every Yaseen, - 4-6 hours as 10/13 needed for pain do not fill until 05/30/17 Acidophilus 04/23 Hx Capsules once daily - 10/13 Cyclobenzaprine 11/14 Hx Tablets 10mg 30tab one by mouth Other HCL s three times Ordering - a day as Provider 08/22 needed spasm Percocet 02/24 Hx Tablets 5-325mg 15tab 1 tab po q 840.9 Fnu s 8hrs prn Seemant, - pain 11/13 Motrin Ib 02/03 Hx Tablets 600mg 60tab as needed Fnu s qid Seemant, - MD 04/01 Vicodin 02/03 Hx Tablets 5-300mg 15tab 1 tab twice 840.9 Fnu s daily as Seemant, - needed for 11/13 pain. Singulair 01/30 Hx Tablets 10mg 30tab one qd am s FHannah Britton, 02/03 M.D. /2014 Aciphex 01/30 Hx Tablets 20mg 30tab 2 po qd s Harper Britton, 02/03 M.D. /2014 Advair Diskus 01/30 Hx Inhaler 500mcg;50 1 PO bid mcg Harper Britton, 02/03.D. Albuterol 01/30 Hx Aerosol 90mcg/Dos e F. - Mauser, 02/03.D. Triphasil 28 Day 01/30 Hx Tablets 0.03mg;0. 1 PO qd 05mg;0.04 F. - MG Mauser, 02/03.D. Vitamin C 01/30 Hx Capsules 500mg 1 PO qd F. - Mauser, 02/03.D. Relpax 01/30 Hx Tablets 40mg prn F. - Mauser, 02/03.D. Axert 01/30 Hx Tablets 1 po prn migrain F. - use, 02/03.D. Lexapro 01/30 Hx Tablets 10mg 30tab 1 PO qd s F. - Xochilt, 02/02.D Alprazolam Hx Tablets 0.5mg take 1 Unknown /0000 tablet by - mouth every 11/13 8 hours needed for anxiety maximum joaquim (pt dcd, MD aware) Prozac Hx Capsules 60mg 1 [...] by - mouth three 04/01 times a if needed maximum daily Fluoxetine HCL Hx Capsules 40mg take 1 Unknown /0000 capsule by - mouth every 11/21 Fluoxetine HCL Hx Capsules 20mg take 1 Unknown /0000 capsule by - mouth once 11/21 daily With 40 MG Cap Diazepam Hx Tablets 10mg take 1 Unknown /0000 tablet by - mouth three 04/24 times a maximum daily dose of 3 Ferrous Sulfate Hx Tablets 325(65Fe) Take 1 Unknown /0000 mg Tablet By - Mouth Every Colace Hx Capsules 100mg 1 by mouth Unknown /0000 up to 3 - times a day 04/01 as needed for constipation . Pantoprazole Hx Tablets 40mg 1 po qday Oljusto Sodium /0000 , - [facility], 03/05 Oxycodone-Acetami Hx Tablets 7.5-325mg take 1 Unknown nophen /0000 tablet by - mouth every 04/01 6 hours needed for Severe Neck An... Loratadine Hx Tablets 10mg 1 tab po Unknown /0000 daily - 10/13 Ashlyna / Hx Tablets 0.15-0.03 take 1 Unknown /0000 &0.01mg tablet by - mouth AT The 04/01 Every Day Zoloft Hx 150mg Unknown /0000 - 03/24 Prilosec Hx 40mg 1-2 tabs q Unknown /0000 day - 04/24 Vitamin B12 /00 Hx q day Unknown /0000 - 03/24 Control 00/00 Hx Unknown /0000 - 03/24 Endocet /00 Hx Tablets 10-325mg Unknown /0000 - 04/24 Probiotic Hx Capsules 1 by mouth Unknown /0000 every day - 03/24 Dulcolax Hx Tablets 5mg take as Unknown /0000 DR directed for - colonoscopy 03/24 Ashlyna 00/00 Hx Tablets 0.15-0.03 Unknown /0000 &0.01mg - 04/24 Dexamethasone Hx Tablets 1.5mg Tiara, /0000 Eliu Melgar MD 10/13 Medications Administered in Office Medication Date Status Form Strength Qnty SIG Indications Ordering Provider Celestone 3 mg Administered Injection Shen M and 3mg 017 MD Laura Celestone 3 mg Administered Injection Shen M and 3mg 017 MD Laura Depomedrol Administered Injection Shen M 40MG 017 MD Dipesh Sanchezomedrol Administered Injection Shen M 40MG 017 MD Dipesh Sanchezomedrol Administered Injection Shen M 40MG 017 MD Dipesh Sanchezomedrol Administered Injection Fnu 40MG 015 MD Juan Antonio Vital Signs Date Vital Result Comment 04/25/2018 Height 63.5 inches 5'3.50" Weight 191.50 lb Heart Rate 63 /min BP Systolic 116 mmHg BP Diastolic 75 mmHg Respiratory Rate 18 /min Body Temperature 97.3 F O2 % BldC Oximetry 96 % BMI (Body Mass Index) 33.4 kg/m2 04/15/2018 Height 63.5 inches 5'3.50" Heart Rate 72 /min BP Systolic Sitting 122 mmHg BP Diastolic Sitting 66 mmHg Respiratory Rate 16 /min Body Temperature 98.1 F Pain Level 2 03/06/2018 Height 63.5 inches 5'3.50" Weight 190.00 lb Heart Rate 76 /min BP Systolic 122 mmHg BP Diastolic 70 mmHg Respiratory Rate 12 /min Pain Level 5 BMI (Body Mass Index) 33.1 kg/m2 01/16/2018 Height 63.5 inches 5'3.50" Weight 184.00 lb Heart Rate 66 /min BP Systolic Sitting 124 mmHg BP Diastolic Sitting 76 mmHg Respiratory Rate 16 /min Pain Level 5 BMI (Body Mass Index) 32.1 kg/m2 12/05/2017 Height 63.5 inches 5'3.50" Weight 184.00 lb BP Systolic 116 mmHg BP Diastolic 64 mmHg Respiratory Rate 18 /min Pain Level 5 BMI (Body Mass Index) 32.1 kg/m2 11/07/2017 Height 63.5 inches 5'3.50" Weight 184.00 lb Heart Rate 68 /min BP Systolic 110 mmHg BP Diastolic 70 mmHg Body Temperature 97.2 F Pain Level 5 BMI (Body Mass Index) 32.1 kg/m2 10/14/2017 Height 63.5 inches 5'3.50" Weight 184.00 [...] Information Procedures Date CPT Code Description Status 10/23/2017 75496 Arthroscopy Shoulder,W/Rotator Cuff Repair Completed 10/23/2017 72053 Arthroscopy Shoulder,W/Rotator Cuff Repair Completed 10/23/2017 45825 Arthroscopy Shoulder Debridement Extensive Completed 10/23/2017 46449 Arthroscopy Shoulder Debridement Extensive Completed 10/14/2017 65165 EKG Tracing & Interpretation Completed 05/20/2017 29794 Arthroscopy Shoulder Debridement Limited Completed 05/20/2017 14004 Arthroscopy Shoulder Debridement Extensive Completed 05/20/2017 93218 Arthroscopy,Shoulder Decompression Of Subacromial Space Completed W/Acromio 05/20/2017 12674 Arthroscopy,Shoulder Decompression Of Subacromial Space Completed W/Acromio 05/20/2017 55207 Arthroscopy Shoulder,W/Rotator Cuff Repair Completed 05/20/2017 49314 Arthroscopy Shoulder,W/Rotator Cuff Repair Completed 05/20/2017 52565 Arthroscopy Biceps Tenodesis Completed 05/20/2017 55885 Arthroscopy Biceps Tenodesis Completed 04/24/2017 67654 ECHO Transthoracic, Real-Time 2D With Doppler And Color Completed Flow 03/11/2017 37949 Inject/Drain Joint/Bursa Major W/O US Completed 11/22/2016 56104 Inject Tendon Sheath Or Ligament Aponeurosis Eg Plantar Completed Fascia 09/07/2016 49582 Xray Knee 3 Views Completed 09/07/201689415 Inject/Drain Joint/Bursa Major W/O US Completed 08/23/2016 44471 Inject/Drain Joint/Bursa Major W/O US Completed 11/15/2015 46341 EKG Tracing & Interpretation Completed 02/03/2015 51801 Rad Shoulder Comp, Min. 2 Views Completed 02/03/2015 96069 Inject/Drain Joint/Bursa Major W/O US Completed 02/01/2004 60576 EKG Tracing & Interpretation Completed 12/10/2003 69718 ECHO/Stress Completed 12/10/2003 12940 Stress Test Completed Encounters Type Date Location Provider CPT E/M Dx Office Visit 04/25/2018 9:45a Time Analysis [place] [address] B18.2 R11.0 D51.1 Office Visit 04/15/2018 1:15p [facility] [place] [address] M25.511 C.M.A. M75.122 M75.02 M75.41 Office Visit 03/06/2018 1:15p [facility] [place] [address] M75.122 C.MHannahAHannah Z47.89 Office Visit 10/14/2017 10:20a [facility] Duc Britton, 35431 M75.112 Crissy Verde R00.2 Office Visit 10/10/2017 1:30p [facility] [place] [address] S46.012A C.M.AHannah M75.42 Office Visit 09/10/2017 2:15p [facility] [place] [address] S46.012A C.M.AHannah M75.42 Office Visit 04/24/2017 2:30p [facility] Duc Britton M.D. 15996 R01.1 I49.1 I34.0 E66.9 Z01.810 Office Visit 04/11/2017 1:30p [facility] [place] [address] S46.012A Of C.M.A. Office Visit 04/01/2017 2:00p [facility] [address] M75.42 Of Tracy Whitfield MD S46.012A M17.11 Office Visit 03/11/2017 11:30a [facility] [place] [address] M17.11 [facility] [place] Office Visit 11/22/2016 1:00p [facility] [place] [address] M65.4 [facility] Office Visit 09/07/2016 1:45p [facility] [place] [address] M17.11 [facility] [place] M25.561 Office Visit 08/23/2016 2:30p [facility] [place] [address] M23.231 [facility] [place] M75.41 M75.42 Office Visit 11/15/2015 2:00p [facility] Duc Britton, 42981 Z01.810 Ammon M54.12 Office Visit 02/24/2015 3:00p [facility] MD Juan Antonio 61685 840.9 [place] 840.6 723.4 Office Visit 02/03/2015 3:20p [facility] [place] [facility] [place] [address] 840.9 [place] 840.4 Office Visit 12/17/2006 1:30p [facility] Services Travis Sanchez, 15990 721.3 Of [facility] M.Olegario Office Visit 02/01/2004 8:40a [facility] Duc Britton, 97795 785.2 M.DHannah 785.1 745.5 427.61 Plan of Care Future Appointment(s):05/30/2018 3:15 pm - Jair Andrews MD at [facility] Vihjyzormuirpzjh16/04/2018 2:15 pm - Lelia Camacho MD at [facility].04/25/2018 - Jair Andrews MDB18.2 Chronic viral hepatitis CFollow up:1 kawpqT20.0 NauseaFollow up:1 slnwuR04.1 Vit B12 defic anemia d/t slctv vit B12 malabsorp w proteinFollow up:1 month
[2018-05-24 21:01] VITALS: BP 111/64
[2018-05-24] MEDS ORDERED: Fluorescein Sodium TOPICAL* 1 MG TEST STRIP OPHTHALMIC ONE (21:36)
[2018-05-24] MEDS ORDERED: Fluorescein Sodium TOPICAL* 1 MG TEST STRIP ONE (21:37)
--- NOTE | 2018-05-24 21:37 | UC ---
Eye Complaint HPI - HPI Summary HPI Summary: The patient is a 47-year-old female with progressively worsening swelling and pain of her right lower eyelid. She has had purulent discharge. Had no fever or chills. She has mild eye discomfort. Pain is located in her right lower lid towards the medial canthus. She has no photophobia. She also has a rash over both the right and left side of her neck. She is states that lately she has been dealing with intermittent urticaria. She has a history of MRSA. - History of Current Complaint Chief Complaint: UCEye Stated Complaint: RIGHT EYE COMPLAINT Time Seen by Provider: 05/24/18 21:20 Hx Obtained From: Patient Hx Last Menstrual Period: n/a Onset/Duration: Gradual Onset, Lasting Days Timing: Constant Severity Initially: Mild Severity Currently: Moderate Pain Intensity: 5 Pain Scale Used: 0-10 Numeric Location of Injury: Eye Lid (lower) Character: Throbbing Aggravating Factor(s): Other - touch Associated Signs And Symptoms: Positive: Drainage (Purulent), Swelling Eyes: 1 - swollen/red/purulent d/c - Risk Factors Penetrating Injury Risk Factor: Negative - Allergies/Home Medications Allergies/Adverse Reactions: Allergies Allergy/AdvReac Type Severity Reaction Status Date / Time Adhesive Tape Allergy Severe pulls skin Verified 05/24/18 21:01 off when take tape off bee venom protein (honey bee) Allergy GI Upset Verified 05/24/18 21:01 and Near Syncope clarithromycin [From Biaxin] Allergy Itching Verified 05/24/18 21:01 escitalopram [From Lexapro] Allergy Agitation Verified 05/24/18 21:01 Environmental Allergies Allergy Eyes Uncoded 05/24/18 21:01 Itchy/Swollen/Red/Watery Home Medications: Home Medications Acetaminophen TAB* [Tylenol TAB*] 1 dose PO SEE INSTRUCTIONS PRN 05/24/18 [ History Confirmed 05/24/18] Calcium Carbonate CHEW TAB* [Tums*] 500 mg PO SEE INSTRUCTIONS PRN 05/24/18 [ History Confirmed 05/24/18] PMH/Surg Hx/FS Hx/Imm Hx GI/ History: Gastroesophageal Reflux - Surgical History Surgical History: Yes Surgery Procedure, Year, and Place: Left Shoulder Rotator Cuff, 2018, [facility]; Left Shoulder Rotator Cuff, 2017, [facility]; 1980-- T&A. BARIATRIC SURGERY 2004 [place]. 1993--C-SECT [place]. 2010--CHOLECYSTECTOMY [facility] [place]. C6-C7 NECK FUSION- 2015 [place]. LT SHOULDER - ROTATOR CUFF 2016 and 2017 AND REATTACHED BICEP TENDON 05/10 [facility] - Family History Known Family History: Positive: Hypertension - Social History Alcohol Use: None Substance Use Type: None Smoking Status (MU): Never Smoked Tobacco Household Exposure Type: Cigarettes Review of Systems All Other Systems Reviewed And Are Negative: Yes Constitutional: Positive: Negative Skin: Positive: Negative Eyes: Positive: Drainage ENT: Positive: Negative Respiratory: Positive: Negative Cardiovascular: Positive: Negative Gastrointestinal: Positive: Negative Genitourinary: Positive: Negative Motor: Positive: Negative Neurovascular: Positive: Negative Musculoskeletal: Positive: Negative Neurological: Positive: Negative Psychological: Positive: Negative Physical Exam Triage Information Reviewed: Yes Appearance: Well-Appearing, No Pain Distress, Well-Nourished Vital Signs: Initial Vital Signs Temp 98.7 F 05/24/18 20:53 Pulse 66 05/24/18 20:53 Resp 14 05/24/18 20:53 BP 111/64 05/24/18 20:53 Pulse Ox 99 05/24/18 20:53 Vital Signs Reviewed: Yes Eyes: Positive: Conjunctiva Clear, Discharge, Other: - right lower lid swollen in region of punctum lower lid/pus medial canthus ENT: Positive: Hearing grossly normal. Negative: Nasal congestion, Nasal drainage, Uvula midline Neck: Positive: Supple, Nontender, No Lymphadenopathy Respiratory: Positive: Lungs clear, Normal breath sounds, No respiratory distress, No accessory muscle use Cardiovascular: Positive: RRR Musculoskeletal: Positive: ROM Intact, No Edema Neurological: Positive: Alert Psychological Exam: Normal Skin Exam: Normal Eye Complaint Course/Dx - Differential Dx/Diagnosis Provider Diagnosis: Stye external, Tear duct infection Discharge - Sign-Out/Discharge Documenting (check all that apply): Patient Departure All imaging exams completed and their final reports reviewed: No Studies - Discharge Plan Condition: Stable Disposition: HOME Prescriptions: DOXYcycline CAP(*) [DOXYcycline 100MG CAP(*)] 100 mg PO BID #12 cap Patient Education Materials: Jacinta (ED) Referrals: Daily PARISH,Hayley [Medical Doctor] - 2 Days (if not better) Additional Instructions: you may have and infection/obstruction of tear duct continue warm compress use antiboitic eye drops as directed don't take your antacids with the doxy (take at least 2 hours before or 2 hours ) to ER for new or worsening symptoms - Billing Disposition and Condition Condition: STABLE Disposition: Home
[2018-05-24] MEDS ORDERED: Erythromycin OPTH OINT* APPLIC OINT RIGHT EYE ONE (21:44)
[2018-05-24] MEDS ORDERED: DOXYcycline CAP(*) 100 MG PO ONE (21:47)
[2018-05-24] MEDS ORDERED: Polymyx/Trimethoprim OPTH* 10 ML BTL RIGHT EYE ONE (21:56)
== END 2018-05-24 22:08 | disposition home or self-care (01) ==
LOC: UCCORT 20:31
DX: H00.012 Hordeolum externum right lower eyelid (principal); H04.301 Unspecified dacryocystitis of right lacrimal passage; Z86.14 Personal history of Methicillin resistant Staphylococcus aureus infection; Z88.1 Allergy status to other antibiotic agents; Z88.5 Allergy status to narcotic agent
CPT/HCPCS: 99213; A9270-GY; G0463

== ENCOUNTER 2018-07-10 15:30 | Emergency (ER) | payer OTHER ==
--- OUTSIDE RECORDS SUMMARY | 2018-07-10 16:27 | XMS REPORT | Continuity of Care Document ---
:1970 External Reference #:[id number] Author Name Trinity Carrillo Care Team Providers Name Role Phone Paulette Shepherd MD Primary Care Physician Unavailable Payers Type Date Identification Numbers Payment Provider Subscriber Effective: 2001 Policy Number: [id number] [facility] Gisselle Gunderson Expires: 2015 PayID: [id number] [address] [address] [place] [address] Policy Number: [id number] [employer] Number: [id number] [address] PayID: [id number] [place] [address] Advance Directives Description No Information Available Problems [...] Jair Andrews MD Active Note: preop 308 Onset: 06/26/2018 Rupture of infraspinatus tendon Lelia Camacho MD Active Onset: 06/26/2018 Strain of muscle(s) and tendon(s) of the Lelia Camacho MD Active rotator cuff of right shoulder, subsequent encounter Onset: 06/26/2018 Disorder of shoulder Lelia Camacho MD Active [...] Use Denies Drug Use Smoking Status Reviewed: 06/26/18 Patient has never smoked Exercise Type/Frequency Exercises sporadically water therapy 2x weekly Exercise Type/Frequency walks Exercise Type/Frequency Exercises regularly Allergies, Adverse Reactions, Alerts Date Description Reaction Status Severity Comments 02/01/2004 Adhesive Tape Active rash 08/23/2016 Biaxin Active 04/01/2017 Lexapro Active Medications Medication Date Status Form Strength Qnty SIG Indications Ordering Provider Tramadol HCL 05/12 Active Tablets 50mg 40tab 1 tablet s three to MD Joao four times daily as needed Clonazepam 10/14 Active Tablets [...] Iron Active Tablets 325(65Fe) 1 by mouth mg every day Sertraline HCL Active Tablets 200mg take 1 tablet by mouth every morning Ra Vitamin B-12 Active Tablets 1000mcg 1 tab po Unknown ER daily Ra Vitamin D-3 Active Tablets 1000Unit take 2 tablets by mouth once daily Magnesium Oxide Active Tablets 500mg 1 capsule by mouth daily Pt is not currently taking) Motrin Ib Active prn Tums Active Chewtabs 500mg 2 chewtabs by mouth daily Excedrin Migraine Active Tablets 250-250-6 1 tab twice 5mg a day as needed for migraine Imodium A-D Active Capsules 2mg 1 by mouth twice a day, as needed diarrhea Omeprazole Active Capsules 40mg [address] every day Loratadine Active Tablets 10mg 1 by mouth every day as needed Neomycin-Polymyxi Active Solution 1.75-1000 topical to Unknown n-Gramicidin 0-.025 open areas every day as needed Oxycodone HCL 11/03 Hx Tablets 10mg 30tab take 1-2 tab zane s every 6 Yaseen, - hours as 03/14 needed pain Oxycodone HCL 10/23 Hx Tablets 5mg 40tab 1-2 tabs by s mouth every Yaseen, - 4-6 hours as 03/14 Cephalexin 10/23 Hx Tablets 500mg 12tab take 1 by antoine s mouth four Yaseen, - times a day 03/14 x 3 days Cephalexin 05/20 Hx Tablets 500mg 12tab take 1 by Lelia s mouth four Yaseen, - times a [...] 02/03 Hx Tablets 600mg 60tab as needed Fn s qid Juan Antonio, - 04/01 Vicodin 02/03 Hx Tablets 5-300mg 15tab 1 tab twice 840.9 Fnu s daily as Juan Antonio, - needed for 11/13 pain. Singulair 01/30 Hx Tablets 10mg 30tab one qd am s F. - Mauser, 02/03 M.D. /2014 Aciphex 01/30 Hx Tablets 20mg 30tab 2 po qd s F. - Adeliauser, 02/03 M.D. Advair Diskus 01/30 Hx Inhaler 500mcg;50 1 PO bid mcg F. - Adeliauser, 02/03 M.D. /2014 Albuterol 01/30 Hx Aerosol 90mcg/Dos e F. - Adeliause, 02/03 M.D. Triphasil 28 Day 01/30 Hx Tablets 0.03mg;0. 1 PO qd 05mg;0.04 F. - MG Adeliauser, 02/03 M.D. /2014 Vitamin C 01/30 Hx Capsules 500mg 1 PO qd F. - Mauser, 02/03 M.D. /2014 Relpax 01/30 Hx Tablets 40mg prn F. - Mauser, 02/03 M.D. /2014 Axert 01/30 Hx Tablets 1 po prn migrain F. - Mauser, 02/03 M.D. /2014 Lexapro 01/30 Hx Tablets 10mg 30tab 1 PO qd s F. - Tobi, 02/02.D. /2014 Alprazolam / Hx Tablets 0.5mg take 1 Unknown /0000 tablet by - mouth every 11/13 8 hours /2015 needed for anxiety maximum joaquim (pt sophia, MD aware) Prozac 00/00 Hx Capsules 60mg 1 by mouth Unknown /0000 every day - 11/13 Omeprazole / Hx Capsules 40mg 1 po bid Unknown /0000 DR - 09/05 Seasonale 00/ Hx Tablets 0.15-0.03 1 by mouth Unknown [...] - area two 08/22 times Tramadol HCL /00 Hx Tablets 50mg take 1 to 2 Unknown /0000 tablets by - mouth three 04/01 times a day if needed maximum daily Fluoxetine HCL 00/00 [...] maximum daily dose of 3 Ferrous Sulfate 00/00 Hx Tablets 325(65Fe) Take 1 Unknown /0000 mg Tablet By - Mouth Every Colace 00/00 Hx Capsules 100mg 1 by mouth Unknown /0000 up to 3 - times a day 04/01 as needed for constipation . Pantoprazole 00/00 Hx Tablets 40mg 1 po qday Olarewaju Sodium /0000 , - Catie, 03/05 Oxycodone-Acetami Hx Tablets 7.5-325mg take 1 Unknown nophen /0000 tablet by - mouth every 04/01 6 hours needed for Severe Neck An... Loratadine Hx Tablets 10mg 1 tab po Unknown /0000 daily - 10/13 Ashlyna Hx Tablets 0.15-0.03 take 1 Unknown /0000 &0.01mg tablet by - mouth AT The 04/01 Same Time /2016 Every Day Zoloft Hx 150mg Unknown /0000 - 03/24 Prilosec Hx 40mg 1-2 tabs q Unknown /0000 day - 04/24 Vitamin B12 Hx q day Unknown /0000 - 03/24 Control / Hx Unknown /0000 - 03/24 Endocet Hx Tablets 10-325mg Unknown /0000 - 04/24 Probiotic Hx Capsules 1 by mouth Unknown /0000 every day - 03/24 Dulcolax Hx Tablets 5mg take as Unknown /0000 DR directed for - colonoscopy 03/24 Ashlyna 00 Hx Tablets 0.15-0.03 Unknown /0000 &0.01mg - [...] Administered Injection Fnu 40MG Sheila Romano MD Immunizations Description No Information Available Vital Signs Date Vital Result Comment 06/26/2018 3:06pm Height 63 inches 5'3" Weight 199.00 lb BP Systolic 122 mmHg BP Diastolic 66 mmHg Respiratory Rate 18 /min Pain Level 1 BMI (Body Mass Index) 35.2 kg/m2 05/30/2018 1:41pm Height 63 inches 5'3" Weight 199.38 lb Heart Rate 66 /min BP Systolic 119 mmHg BP Diastolic 73 mmHg Respiratory Rate 18 /min O2 % BldC Oximetry 100 % BMI (Body Mass Index) 35.3 kg/m2 05/27/2018 1:59pm Height 63 inches 5'3" Weight 195.00 lb Heart Rate 76 /min BP Systolic 116 mmHg BP Diastolic 64 mmHg BMI (Body Mass Index) 34.5 kg/m2 05/12/2018 2:14pm Height 63 inches 5'3" Weight [...] 10^3/uL N 3.5-10.[address] [place] [address] [phone] Red Blood Count 4.09 10^6/uL N 4.00-5.40 [...] Sodium 139 mmol/L N 135-[address] [place] [address] [phone] Potassium 4.2 mmol/L N 3.5-5.0 Chloride 103 [...] < 1.00 mg/L N <8.01 finding [address] [facility] [place] [address] [phone] Ferritin 40.1 ng/mL N 11-307 Iron & Iron Binding 04/25/2018 [facility] Iron 195 g/dL N 50 -212 [address] [place] [address] [phone] Unsaturated Iron Binding 294 g/dL Total Iron Binding Capacity 489 g/dL High 250-450 Transferrin 349 mg/dL N 203-362 % Iron Saturation 40 % N 15-55 Laboratory test 04/25/2018 [facility] Vitamin B12 594 pg/mL N 180-914 2 finding [address] [place] [address] [phone] 1 Because ethnic data is not always [...] <145 Procedures Date Code Description Status 10/23/2017 06717 Arthroscopy Shoulder,W/Rotator Cuff Repair Completed 10/23/2017 03850 Arthroscopy Shoulder,W/Rotator Cuff Repair Completed 10/23/2017 01123 Arthroscopy Shoulder Debridement Extensive Completed 10/23/2017 83447 Arthroscopy Shoulder Debridement Extensive Completed 10/14/2017 04019 EKG Tracing & Interpretation Completed 05/20/2017 78289 Arthroscopy Shoulder Debridement Limited Completed 05/20/2017 89380 Arthroscopy Shoulder Debridement Extensive Completed 05/20/2017 32922 Arthroscopy,Shoulder Decompression Of Subacromial Space Completed W/Acromio 05/20/2017 36117 Arthroscopy,Shoulder Decompression Of Subacromial Space Completed W/Acromio 05/20/2017 45846 Arthroscopy Shoulder,W/Rotator Cuff Repair Completed 05/20/2017 74538 Arthroscopy Shoulder,W/Rotator Cuff Repair Completed 05/20/2017 51776 Arthroscopy Biceps Tenodesis Completed 05/20/2017 59984 Arthroscopy Biceps Tenodesis Completed 04/24/2017 22465 ECHO Transthoracic, Real-Time 2D With Doppler And Color Completed Flow 03/11/2017 16222 Inject/Drain Joint/Bursa Major W/O US Completed 11/22/2016 58334 Inject Tendon Sheath Or Ligament Aponeurosis Eg Plantar Completed Fascia 09/07/2016 11160 Xray Knee 3 Views Completed 09/07/2016 21616 Inject/Drain Joint/Bursa Major W/O US Completed 08/23/2016 35080 Inject/Drain Joint/Bursa Major W/O US Completed 11/15/2015 00290 EKG Tracing & Interpretation Completed 02/03/2015 59095 Rad Shoulder Comp, Min. 2 Views Completed 02/03/2015 32470 Inject/Drain Joint/Bursa Major W/O US Completed 02/01/2004 54408 EKG Tracing & Interpretation Completed 12/10/2003 43293 ECHO/Stress Completed 12/10/2003 28854 Stress Test Completed Encounters Type Date Location Provider Dx Diagnosis Office Visit 05/27/2018 Orthopedic Lelia Camacho MD S46.011D Strain of 2:15p Services Of C.M.A. tamara/tend the rotator cuff of right shoulder, subs M75.41 Impingement syndrome of right shoulder M25.512 Pain in left shoulder Office Visit 05/12/2018 2:30p [facility] Internal Paulette Joao, R87.820 Cervical low Medicine - risk HPV Dna Townsend test positive G89.4 Chronic pain syndrome R00.2 Palpitations F33.40 Major depressive disorder, recurrent, in remission, unsp M54.12 Radiculopathy, cervical region R41.841 Cognitive communication deficit Office Visit 04/25/2018 [facility] Gastroenterology Jair Lux B18.2 Chronic viral 9:45a [...] shoulder Office Visit 03/06/2018 1:15p Orthopedic Lelia Camacho M75.122 Complete Services Of rotatr-cuff C.M.A. tear/ruptr of left shoulder, not trauma Z47.89 Encounter for other orthopedic aftercare Office Visit 10/14/2017 10:20a Froylan Saleem M75.112 Incomplete Cardiology Of Ammon Britton rotatr-cuff Crissy tear/ruptr of l shoulder, not trauma R00.2 Palpitations Office Visit 10/10/2017 1:30p Orthopedic Lelia Camacho, S46.012A Strain of Services Of MD mcdonald/tend the C.M.A. rotator cuff of left shoulder, init M75.42 Impingement syndrome of left shoulder Office Visit 09/10/2017 2:15p Orthopedic Lelia Camacho S46.012A Strain of Services Of MD mcdonald/tend the C.M.A. rotator cuff of left shoulder, init M75.42 Impingement syndrome of left shoulder Office Visit 04/24/2017 2:30p [facility] Duc Saleem R01.1 Cardiac murmur, Ammon Britton unspecified I49.1 Atrial premature depolarization I34.0 Nonrheumatic mitral (valve) insufficiency E66.9 Obesity, unspecified Z01.810 Encounter for preprocedural cardiovascular examination Office Visit 04/11/2017 Orthopedic Lelia Camacho, S46.012A Strain of 1:30p Services Of MD mcdonald/ifrah the C.M.A. rotator cuff of left shoulder, init Office Visit 04/01/2017 Orthopedic Jorje Castañeda M75.42 Impingement 2:00p Services Of MD Nahid syndrome of left C.M.A. shoulder S46.012A Strain of tamara/ifrah the rotator cuff of left shoulder, init M17.11 Unilateral primary osteoarthritis, right knee Office Visit 03/11/2017 Orthopedic Shen Busch M17.11 Unilateral primary 11:30a Services Of Crissy Sanchez MD osteoarthritis, right AT Lewis knee Office Visit 11/22/2016 Orthopedic Shen Busch M65.4 Radial styloid 1:00p Services Of Crissy Sanchez MD tenosynovitis [de AT Lewis Quervain] Office Visit 09/07/2016 Orthopedic Shen Busch M17.11 Unilateral primary 1:45p Services Of Crissy Sanchez MD osteoarthritis, right AT Lewis knee M25.561 Pain in right knee Office Visit 08/23/2016 2:30p Orthopedic Shen Busch M23.231 Derang of medial Services Of Crissy Sanchez MD meniscus due to AT Lewis old tear/inj, right knee M75.41 Impingement syndrome of right shoulder M75.42 Impingement syndrome of left shoulder Office Visit 11/15/2015 Clarence Saleem Z01.810 Encounter for 2:00p Cardiology Ammon Britton preprocedural cardiovascular examination M54.12 Radiculopathy, cervical region Office Visit 02/24/2015 3:00p Sports Medicine Rahel Romano MD 840.9 Sprains & Of Director Title AT Strains Shoulder Rom & Upper Arm Unspec 840.6 Sprains & Strains Supraspinatus (Muscle)(Tendon) 723.4 Brachial Neuritis Or Radiculitis NOS Office Visit 02/03/2015 3:20p Sports Medicine Rahel Romano MD 840.9 Sprains & Of Director Title AT Strains Shoulder Lewis & Upper Arm Unspec 840.4 Sprains & Strains Rotator Cuff (Capsule) Office Visit 12/17/2006 1:30p Neurosurgery Travis Lau 721.3 Spondylosis Services Of [facility] Ammon Sanchez 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 Office Visit 02/01/2004 8:40a [facility] Duc Castañeda. 785.2 Murmur Cardiac Ammon Britton Undiagnosed 785.1 Palpitations 745.5 Atrial Septal Defect Ostium Secundum Type 427.61 Premature Beats Supraventricular Plan of Treatment Future Appointment(s):08/26/2018 2:00 pm - Lelia Camacho MD at [facility] [place]06/30/2018 1:00 pm - Paulette Shepherd MD at [facility] Internal Medicine - Mqoxolidk79/07/2019 2:00 pm - Jair Andrews MD at [facility] Ddhcyhsydhiazzhg18/22/2019 2:00 pm - Paulette Shepherd MD at [facility] Internal Medicine - Xtjrwiypg37/03/2019 - Lelia Camacho, MDS46.011D Strain of muscle(s) and tendon( s) of the rotator cuff of rigReferral:Radha Parra MD, Physical Medicine/ RehabFollow up:Follow up: 2 pmefdxC59.41 Impingement syndrome of right inlspdzmJ86.112 Incomplete rotator cuff tear or rupture of left shoulder, no
--- OUTSIDE RECORDS SUMMARY | 2018-07-10 16:27 | XMS REPORT | Continuity of Care Document ---
:1970 External Reference #:[id number] Author Name Silvia Cosby Care Team Providers Name Role Phone Paulette Shepherd MD Primary Care Physician Unavailable Payers Type Date Identification Numbers Payment Provider Subscriber Effective: 2018 Policy Number: [id number] [employer] Number: [id number] [address] PayID: [id number] [place] [address] Effective: 2001 Policy Number: [id number] [facility] Ppo [employer]iss[employer] Expires: 2015 PayID: [id number] [address] [address] [place] [address] Expires: 2018 Policy Number: [id number] Medicaid G[employer] Name: 1 1 [address] PayID: [id number] [place] [address] Advance Directives Description No Information Available Problems [...] 2009 and some sexual partners have had tattoos; 8 ALTs September 2011 to Apr 2018 all under 30 and normal except one 446 in December 2017; Onset: 04/27/2010 Posttraumatic stress disorder Jair Andrews MD Active Onset: 04/27/2004 Anxiety disorder Jair Andrews MD Active Onset: 04/27/2011 Chronic pain Jair Andrews MD Active Note: spinal axis with cervical fusion 2015 Onset: 04/27/2011 Fibromyalgia Jair Andrews MD Active Onset: 04/27/1992 Morbid obesity Jair Andrews MD Active Note: high weight was 308 down to 190 in 2008 then 213 spring 2017 and Apr 2018 191 Onset: 04/27/2004 History of bariatric surgical procedure Jair Andrews MD Active Note: attributes chronic nausea to this; preop 308 - lowest post op weight 170 in 2010 and usually 190; Family History Date Family Member(s) Problem(s) Comments [...] Use Denies Drug Use Smoking Status Reviewed: 07/03/18 Patient has never smoked Exercise Type/Frequency Exercises sporadically water therapy 2x weekly Exercise Type/Frequency walks Exercise Type/Frequency Exercises regularly Allergies, Adverse Reactions, Alerts Date Description Reaction Status Severity Comments 02/01/2004 Adhesive Tape Active rash 08/23/2016 Biaxin Active 04/01/2017 Lexapro Active 07/03/2018 Codeine Facial swelling, Itching Active Medications Medication Date Status Form Strength Qnty SIG Indications Ordering Provider Ledipasvir-Sofosb 07/01 Active Tablets 90-400mg 90tab 1 by mouth Jair armstrong s daily for 12 janet Andrews MD Loperamide HCL 06/30 Active Capsules 2mg 30cap 1 by mouth s twice a day, MD Joao as needed diarrhea Tramadol HCL 05/12 Active Tablets 50mg 40tab 1 tablet s three to MD Joao four times daily as needed Clonazepam 10/14 Active Tablets 1mg tid prn Duc Harper Britton M.D. Lyrica 04/23 Active Capsules 150mg 90cap 1 by mouth s three times MD Joao a day Straight Cane For 09/17 Active 1unit Shen Busch Knee s MD Laura Trazodone HCL Active Tablets 100mg 30tab 1/2 - 1 by s mouth every MD Joao night at bedtime Tizanidine HCL Active Capsules 4mg 1 by mouth tid prn Iron Active Tablets 325(65Fe) 1 [...] 5mg a day as needed for migraine Omeprazole Active Capsules 20mg 90cap 1 by mouth Jair Lux DR [place] every day MD Darryl Loratadine Active Tablets 10mg 1 by mouth every day as needed Neomycin-Polymyxi Active Solution 1.75-1000 topical to Unknown n-Gramicidin 0-.025 open areas every day as needed Ibuprofen 200 06/30 Hx Tablets 200mg 90tab take 3 G89.4 s tablets MD Joao - every 6 06/30 hours as needed Oxycodone HCL 11/03 Hx Tablets 10mg 30tab take 1-2 tab s every 6 Yaseen, - hours as [...] 2 po qd s F. - Mauser, 02/03 M.D. Advair Diskus 01/30 Hx Inhaler 500mcg;50 1 PO bid mcg F. - Mauser, 02/03 M.D. Albuterol 01/30 Hx Aerosol 90mcg/Dos e F. - Mausemarino, 02/03 M.D. Triphasil 28 Day 01/30 Hx Tablets 0.03mg;0. 1 PO qd 05mg;0.04 F. - MG Tobi, 02/03 M.D Vitamin C 01/30 Hx Capsules 500mg 1 PO qd Harper Britton, 02/03 M.D. /2014 Relpax 01/30 Hx Tablets 40mg prn Hannah Britton, 02/03.D. /2014 Axert 01/30 Hx Tablets 1 po prn migrain Hannah Britton, 02/03.D. /2014 Lexapro 01/30 Hx Tablets 10mg 30tab 1 PO qd s Harper Britton, 02/02 M.D /2014 Alprazolam Hx Tablets 0.5mg take 1 Unknown /0000 tablet by - mouth every 11/13 8 hours /2015 needed for anxiety maximum joaquim (pt suzetted, [...] /0000 twice a day - 04/24 Gabapentin Hx Capsules 300mg 1 by mouth Unknown [...] /2016 if needed maximum daily Fluoxetine HCL Hx [...] po qday Olarewaju Sodium /0000 , - Catie 03/05 Oxycodone-Acetami Hx Tablets 7.5-325mg take 1 Unknown nophen /0000 tablet by - mouth every 04/01 6 hours needed for Severe Neck An... Loratadine Hx Tablets 10mg 1 tab po Unknown /0000 daily - 10/13 Ashlyna Hx Tablets 0.15-0.03 take 1 Unknown /0000 &0.01mg tablet by - mouth AT The 04/01 Same Every Day Zoloft Hx 150mg Unknown /0000 - 03/24 Prilosec Hx 40mg 1-2 tabs q Unknown /0000 day - 04/24 Vitamin B12 / Hx q day Unknown /0000 - 03/24 Control 00/00 Hx Unknown /0000 - 03/24 Endocet Hx Tablets 10-325mg Unknown /0000 - 04/24 Probiotic 00 Hx Capsules 1 by mouth Unknown /0000 every day - 03/24 Imodium A-D Hx Capsules 2mg 1 by mouth Unknown /0000 twice a day, - as needed 06/30 Dulcolax Hx Tablets 5mg take as Unknown /0000 directed for - colonoscopy 03/24 Ashlyna 00/00 Hx Tablets 0.15-0.03 Unknown /0000 &0.01mg - 04/24 Dexamethasone Hx Tablets 1.5mg Tiara, /0000 Eliu Melgar MD 10/13 Medications Administered in Office Medication Date Status Form Strength Qnty SIG Indications Ordering Provider Celestone 3 mg Administered Injection Shen M and 3mg 019 MD Laura Celestone 3 mg Administered Injection [...] Available Vital Signs Date Vital Result Comment 07/03/2018 2:51pm Height 63 inches 5'3" Weight 199.00 lb Heart Rate 68 /min BP Systolic Sitting 104 mmHg L BP Diastolic Sitting 68 mmHg L Pain Level 7 BMI (Body Mass Index) 35.2 kg/m2 06/30/2018 2:25pm Height 63 inches 5'3" Weight 202.00 lb Heart Rate 65 /min BP Systolic 130 mmHg BP Diastolic 88 mmHg Respiratory Rate 18 /min Body Temperature 97.2 F O2 % BldC Oximetry 100 % BMI (Body Mass Index) 35.8 kg/m2 06/30/2018 1:13pm Height 63 inches 5'3" Weight 200.00 lb Heart Rate 66 /min BP Systolic Sitting 111 mmHg BP Diastolic Sitting 73 mmHg Body Temperature 97.2 F O2 % BldC Oximetry 98 % BMI (Body Mass Index) 35.4 kg/m2 06/26/2018 3:06pm Height 63 inches 5'3" Weight [...] H/L Range Note CBC Auto Diff 04/25/2018 [facility] White Blood 6.4 10^3/uL N 3.5-10.[address] [place] [address] [phone] Red Blood Count 4.09 10^6/uL N 4.00-5.40 [...] Cells % 0.1 Comp Metabolic Panel 04/25/2018 [facility] Sodium 139 mmol/L N 135-[address] [place] [address] [phone] Potassium 4.2 mmol/L N 3.5-5.0 Chloride 103 [...] Egfr 104.6 >60 1 Laboratory test 04/25/2018 [facility] C Reactive < 1.00 mg/L N <8.[address] [place] [address] [phone] Ferritin 40.1 ng/mL N 11-307 Iron & Iron Binding 04/25/2018 [facility] Iron 195 g/dL N 50 -[address] [place] [address] [phone] Unsaturated Iron Binding 294 g/dL Total Iron Binding Capacity 489 g/dL High 250-450 Transferrin 349 mg/dL N 203-362 % Iron Saturation 40 % N 15-55 Laboratory test 04/25/2018 [facility] Vitamin B12 594 pg/mL N 180-914 2 finding [address] [place] [address] [phone] 1 Because ethnic data is not always [...] Range <145 Procedures Date Code Description Status 07/03/2018 43100 Inject/Drain Joint/Bursa Major W/O US Completed 10/23/2017 53737 Arthroscopy Shoulder,W/Rotator Cuff Repair Completed 10/23/2017 02455 Arthroscopy Shoulder,W/Rotator Cuff Repair Completed 10/23/2017 09722 Arthroscopy Shoulder Debridement Extensive Completed 10/23/2017 32411 Arthroscopy Shoulder Debridement Extensive Completed 10/14/2017 94329 EKG Tracing & Interpretation Completed 05/20/2017 96774 Arthroscopy Shoulder Debridement Limited Completed 05/20/2017 51512 Arthroscopy Shoulder Debridement Extensive Completed 05/20/2017 04565 Arthroscopy,Shoulder Decompression Of Subacromial Space Completed W/Acromio 05/20/2017 38046 Arthroscopy,Shoulder Decompression Of Subacromial Space Completed W/Acromio 05/20/2017 17047 Arthroscopy Shoulder,W/Rotator Cuff Repair Completed 05/20/2017 98781 Arthroscopy Shoulder,W/Rotator Cuff Repair Completed 05/20/2017 49528 Arthroscopy Biceps Tenodesis Completed 05/20/2017 99022 Arthroscopy Biceps Tenodesis Completed 04/24/2017 54288 ECHO Transthoracic, Real-Time 2D With Doppler And Color Completed Flow 03/11/2017 26152 Inject/Drain Joint/Bursa Major W/O US Completed 11/22/2016 60478 Inject Tendon Sheath Or Ligament Aponeurosis Eg Plantar Completed Fascia 09/07/2016 48065 Xray Knee 3 Views Completed 09/07/2016 61793 Inject/Drain Joint/Bursa Major W/O US Completed 08/23/2016 85873 Inject/Drain Joint/Bursa Major W/O US Completed 11/15/2015 87335 EKG Tracing & Interpretation Completed 02/03/2015 41664 Rad Shoulder Comp, Min. 2 Views Completed 02/03/2015 20546 Inject/Drain Joint/Bursa Major W/O US Completed 02/01/2004 76371 EKG Tracing & Interpretation Completed 12/10/2003 10678 ECHO/Stress Completed 12/10/2003 86502 Stress Test Completed Encounters Type Date Location Provider Dx Diagnosis Office Visit 06/30/2018 [facility] Internal Paulette Shepherd MD R19.7 Diarrhea, 1:00p Medicine - unspecified [place] G89.4 Chronic pain syndrome G47.00 Insomnia, unspecified Office Visit 06/30/2018 [facility] Gastroenterology Jair Lux B18.2 Chronic viral 2:00p MD Darryl hepatitis C F41.9 Anxiety disorder, unspecified M79.7 Fibromyalgia E66.01 Morbid (severe) obesity due to excess calories Office Visit 05/27/2018 2:15p Orthopedic Leila Camacho, S46.011D Strain of Services Of MD mcdonald/ifrah the C.M.A. rotator cuff of right shoulder, subs M75.41 Impingement syndrome of right shoulder M25.512 Pain in left shoulder Office Visit 05/12/2018 2:30p [facility] Internal Paulette Joao, R87.820 Cervical low Medicine - risk HPV Dna [place] test positive G89.4 Chronic pain syndrome R00.2 Palpitations F33.40 Major depressive disorder, recurrent, in remission, unsp M54.12 Radiculopathy, cervical region R41.841 Cognitive communication deficit Office Visit 04/25/2018 [facility] Gastroenterology Jair Lux B18.2 Chronic viral 9:45a [...] Orthopedic Lelia Camacho, M75.122 Complete Services Of rotatr-cuff C.M.A. tear/ruptr [...] of left shoulder Office Visit 04/24/2017 2:30p [facility] Duc Saleem R01.1 Cardiac murmurTobi M.D. unspecified I49.1 Atrial premature depolarization I34.0 Nonrheumatic [...] Of Crissy Sanchez MD osteoarthritis, right AT [place] knee Office Visit 11/22/2016 Orthopedic Shen Busch M65.4 Radial styloid 1:00p Services Of Crissy Sanchez MD tenosynovitis [de AT [place] Quervain] Office Visit 09/07/2016 Orthopedic Shen Busch M17.11 Unilateral primary 1:45p Services Of Crissy Sanchez MD osteoarthritis, right AT [place] knee M25.561 Pain in right knee Office Visit 08/23/2016 2:30p Orthopedic Shen Busch M23.231 Derang of medial Services Of Crissy Sanchez MD meniscus due to AT [place] old tear/inj, right knee M75.41 Impingement syndrome of right shoulder M75.42 Impingement syndrome of left shoulder Office Visit 11/15/2015 [place] Duc FHannah Z01.810 Encounter for 2:00p Cardiology Ammon Britton preprocedural cardiovascular examination M54.12 Radiculopathy, cervical region Office Visit 02/24/2015 3:00p Sports Medicine Rahel Romano MD 840.9 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 Shoulder [place] & Upper Arm Unspec 840.6 Sprains & Strains Supraspinatus (Muscle)(Tendon) 723.4 Brachial Neuritis Or Radiculitis NOS Office Visit 02/03/2015 3:20p Sports Medicine Rahel Romano MD 840.9 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 Shoulder Rom & Upper Arm Unspec 840.4 Sprains & Strains Rotator Cuff (Capsule) Office Visit 12/17/2006 1:30p Neurosurgery Travis Lau 721.3 Spondylosis Services Of [facility] Ammon Sanchez 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 Office Visit 02/01/2004 8:40a [facility] Duc Saleem 785.2 Murmur Cardiac Ammon Britton Undiagnosed 785.1 Palpitations 745.5 Atrial Septal Defect Ostium Secundum Type 427.61 Premature Beats Supraventricular Plan of Treatment Future Appointment(s):08/26/2018 2:00 pm - Lelia Camacho MD at [facility] [place]07/15/2018 2:00 pm - Paulette Shepherd MD at [facility] Internal Medicine - Vuiwxefpp60/10/2019 - Shen Sanchez, MDM17.11 Unilateral primary osteoarthritis, right kneeFollow up:Follow up: As needed
[2018-07-10 16:30] VITALS: BP 134/71
--- NOTE | 2018-07-10 16:46 | UC ---
Throat Pain/Nasal [place] HPI - HPI Summary HPI Summary: 47 y/o female presents to the urgent care c/o sore throat, ANDERSEN and nausea for the past 5 days. Symptoms have worsen the past 3 days. Pain is 4/10 w/ swallowing associated w/ mild clear nasal discharge. Pt has been taking ibuprofen PO to alleviate symptoms. Pt denies fever, SOB, cough, abdominal pain , N/V/D,chest pain. - History of Current Complaint Chief Complaint: UCGeneralIllness Stated Complaint: SORE THROAT, NAUSEA, HEADACHE Time Seen by Provider: 07/10/18 16:43 Hx Obtained From: Patient Hx Last Menstrual Period: 06/2018 ?: No Onset/Duration: Gradual Onset, Lasting Days - 5 days, Still Present, Worse Since - 3 days Severity: Mild Pain Intensity: 4 Pain Scale Used: 0-10 Numeric Cough: None Associated Signs & Symptoms: Positive: Dysphagia, Nasal Discharge - clear. Negative: Fever - Epiglottits Risk Factors Epiglottis Risk Factors: Negative - Allergies/Home Medications Allergies/Adverse Reactions: Allergies Allergy/AdvReac Type Severity Reaction Status Date / Time Adhesive Tape Allergy Severe pulls skin Verified 07/10/18 16:27 off when take tape off bee venom protein (honey bee) Allergy GI Upset Verified 07/10/18 16:27 and Near Syncope clarithromycin [From Biaxin] Allergy Itching Verified 07/10/18 16:27 codeine Allergy Swelling Verified 07/10/18 16:27 Of Face,Lips,& Throat escitalopram [From Lexapro] Allergy Agitation Verified 07/10/18 16:27 Environmental Allergies Allergy Eyes Uncoded 07/10/18 16:27 Itchy/Swollen/Red/Watery PMH/Surg Hx/FS Hx/Imm Hx Previously Healthy: Yes Other Endocrine History: Fibromyalgia - Surgical History Surgical History: Yes Surgery Procedure, Year, and Place: Left Shoulder Rotator Cuff, 2018, [facility]; Left Shoulder Rotator Cuff, 2016, [facility]; 1980-- T&A. BARIATRIC SURGERY 2003 Sarah Ann. 1993--C-SECT [place]. 2010--CHOLECYSTECTOMY [facility] [place]. C6-C7 NECK FUSION- 2015 Ajith. LT SHOULDER - ROTATOR CUFF 2016 and 2017 AND REATTACHED BICEP TENDON 05/10 [facility] [place] - Family History Known Family History: Positive: Hypertension - Social History Occupation: Employed Full-time Lives: With Family Alcohol Use: None Substance Use Type: None Smoking Status (MU): Never Smoked Tobacco Household Exposure Type: Cigarettes Review of Systems All Other Systems Reviewed And Are Negative: Yes Constitutional: Positive: Chills, Other - body aches Skin: Positive: Negative Eyes: Positive: Negative ENT: Positive: Sore Throat, Nasal Discharge - clear, Sinus Congestion Respiratory: Positive: Negative Cardiovascular: Positive: Negative Gastrointestinal: Positive: Nausea Genitourinary: Positive: Negative Motor: Positive: Negative Neurovascular: Positive: Negative Musculoskeletal: Positive: Negative Neurological: Positive: Headache Psychological: Positive: Negative Is Patient Immunocompromised?: No Physical Exam - Summary Physical Exam Summary: VITAL SIGNS: Reviewed. GENERAL: Patient is a well developed and nourished obese female who is sitting comfortable in the examining table. Patient is not in any acute respiratory distress. HEAD AND FACE: No signs of trauma. No ecchymosis, hematomas or skull depressions. No sinus tenderness. EYES: PERRLA, EOMI x 2, No injected conjunctiva, no nystagmus. No photophobia. EARS: Hearing grossly intact. Ear canals and tympanic membranes are within normal limits. Nose: edematous and erythematous nasal mucosa w/ clear nasal discharge. MOUTH: Positive no erythema, no tonsillar enlargement. Uvula in midline. NECK: Supple, trachea is midline, Positive anterior cervical lymphadenopathy, no JVD, no carotid bruit, no c-spine tenderness, neck with full ROM. No meningeal signs, no Kernig's or brudzinskis signs. CHEST: Symmetric, no tenderness at palpation LUNGS: Clear to auscultation bilaterally. No wheezing or crackles. CVS: Regular rate and rhythm, S1 and S2 present, no murmurs or gallops appreciated. ABDOMEN: Soft, non-tender. No signs of distention. No rebound no guarding, and no masses palpated. Bowel sounds are normal. EXTREMITIES: FROM in all major joints, no edema, no cyanosis or clubbing. NEURO: Alert and oriented x 3. No acute neurological deficits. Speech is normal and follows commands. SKIN: Dry and warm Triage Information Reviewed: Yes Vital Signs: Initial Vital Signs Temp 97.4 F 07/10/18 16:27 Pulse 65 07/10/18 16:27 Resp 15 07/10/18 16:27 BP 134/71 07/10/18 16:27 Pulse Ox 98 01/17/19 16:27 Throat Pain/Nasal Course/Dx - Course Course Of Treatment: 47 y/o female presents to the urgent care c/o sore throat, ANDERSEN and nausea for the past 5 days. Symptoms have worsen the past 3 days. Pain is 4/10 w/ swallowing associated w/ mild clear nasal discharge. Pt has been taking ibuprofen PO to alleviate symptoms. Pt denies fever, SOB, cough, abdominal pain, N/V/D,chest pain. Hx obtained. Pt with URI on examination. Rapid strep ordered, result: negative.Influenza A&B ordered: result: negative. Pt advised to continue taking ibuprofen PO to alleviates symptoms. Advised on hand washing and wear a mask to avoid spreading. Pt advised to rest, increase fluid intake, eat well and avoid strenuous exercise. If symptoms do not improve or worsen advised to return to the urgent care or f/u with her PCP for further evaluation and treatment. Pt understood and agreed with plan of care. - Differential Dx/Diagnosis Differential Diagnosis/HQI/PQRI: Laryngitis, Otitis Media, Pharyngitis, URI Provider Diagnosis: Upper respiratory infection Discharge - Sign-Out/Discharge Documenting (check all that apply): Patient Departure - D/C home All imaging exams completed and their final reports reviewed: No Studies - Discharge Plan Condition: Stable Disposition: HOME Patient Education Materials: Upper Respiratory Infection (ED) Referrals: Paulette Shepherd MD [Primary Care Provider] - 3 Days Additional Instructions: 1-Please continue taking ibuprofen PO q6-8hrs prn as instructed after meals to alleviate pain and swelling. Increase fluid intake, eat well, rest and avoid strenuous exercise 2-If symptoms do not improve or worsen please return to the urgent care or f/u with your PCP for further evaluation and treatment. - Billing Disposition and Condition Condition: STABLE Disposition: Home - Attestation Statements Provider Attestation: I was available for consult. This patient was seen by the [facility]. The patient was not presented to, seen by, or examined by me. -Sandra
== END 2018-07-10 17:32 | disposition home or self-care (01) ==
LOC: UCCORT 15:30
DX: J06.9 Acute upper respiratory infection, unspecified (principal); Z88.1 Allergy status to other antibiotic agents; Z88.5 Allergy status to narcotic agent; Z88.8 Allergy status to other drugs, medicaments and biological substances
CPT/HCPCS: 87651; 99211; G0463

== ENCOUNTER 2018-12-30 11:31 | Emergency (ER) | payer OTHER ==
--- NOTE | 2018-12-30 11:41 | UC ---
Lower Extremity/Ankle HPI - HPI Summary HPI Summary: 48 yo female presents with RIGHT ankle injury. She tells me that she has a history of "bad knees" for which she is followed by Orthopedics. Occasionally if she is sitting or laying for too long, her knees will "not work" when she goes to get up and she will fall. 2 days ago she was laying on the cough and went to get up, but her knees were weak and she fell. She did not hit her head or have LOC. She is unsure how, but during this fall she injured her right ankle. Since that time has had pain, swelling, and bruising to her right ankle. She is ambulatory without assistance. She denies numbness or tingling. She has been taking her pain medication as prescribed for her discomfort and pain is manageable. - History of Current Complaint Stated Complaint: RT FOOT/BILATERAL KNEE COMPLAINT Time Seen by Provider: 12/30/18 11:40 Hx Obtained From: Patient Hx Last Menstrual Period: 06/2018 Onset/Duration: Sudden Onset Severity Initially: Severe Severity Currently: Severe Pain Intensity: 9 Pain Scale Used: 0-10 Numeric Aggravating Factor(s): Standing, Ambulation Able to Bear Weight: Yes - Allergies/Home Medications Allergies/Adverse Reactions: Allergies Allergy/AdvReac Type Severity Reaction Status Date / Time Adhesive Tape Allergy Severe pulls skin Verified 12/30/18 11:54 off when take tape off bee venom protein (honey bee) Allergy GI Upset Verified 12/30/18 11:54 and Near Syncope clarithromycin [From Biaxin] Allergy Itching Verified 12/30/18 11:54 codeine Allergy Swelling Verified 12/30/18 11:54 Of Face,Lips,& Throat escitalopram [From Lexapro] Allergy Agitation Verified 12/30/18 11:54 Environmental Allergies Allergy Eyes Uncoded 12/30/18 11:54 Itchy/Swollen/Red/Watery Home Medications: Home Medications Nortriptyline CAP* [Nortriptylline CAP*] 1 tab PO BEDTIME 12/30/18 [History Confirmed 12/30/18] PMH/Surg Hx/FS Hx/Imm Hx - Additional Past Medical History Additional PMH: Seasonal allergies Chronic pain GERD Psychological History: Anxiety, Depression - Surgical History Surgical History: Yes Surgery Procedure, Year, and Place: Left Shoulder Rotator Cuff, 2018, [facility] [place]; Left Shoulder Rotator Cuff, 2017, [facility] [place]; 1981-- T&A. BARIATRIC SURGERY 2004 [place]; 1993--C-SECT [place]; 2010--CHOLECYSTECTOMY; C6-C7 NECK FUSION- 10/2015 [place] - Family History Known Family History: Positive: Hypertension - Social History Lives: With Family Alcohol Use: None Substance Use Type: None Smoking Status (MU): Never Smoked Tobacco Household Exposure Type: Cigarettes Review of Systems All Other Systems Reviewed And Are Negative: Yes Constitutional: Positive: Negative Skin: Positive: Negative Respiratory: Positive: Negative Cardiovascular: Positive: Negative Neurovascular: Positive: Negative Musculoskeletal: Positive: Other: - Right ankle pain Neurological: Positive: Negative Psychological: Positive: Negative Physical Exam - Summary Physical Exam Summary: GENERAL: NAD. WDWN. No pain distress. SKIN: No rashes, sores, lesions, or open wounds. CHEST: No accessory muscle use. Breathing comfortably and in no distress. CV: Pulses intact PT and DP. Cap refill <2seconds MSK: RIGHT ANKLE: Mild edema at posterior lateral malleolus with point tenderness here. Moderate ecchymosis at inferior lateral malleolus. Pain with inversion of ankle. Strength 5/5. Negative talar tilt. NEURO: Alert. Sensations intact and symmetric B/L LEs PSYCH: Age appropriate behavior. Triage Information Reviewed: Yes Vital Signs Reviewed: Yes Lower Extremity Course/Dx - Course Course Of Treatment: XR ankle: IMPRESSION: 1. Soft tissue swelling about the lateral malleolus. 2. No fracture or traumatic malalignment of the ankle. XR foot: IMPRESSION: 1. No fracture or traumatic malalignment of the foot. 2. Soft tissue swelling about the lateral malleolus. Suspect sprain of right ankle. Pt eloped due to time constraints with another appointment. The XR readings were not completed prior to her elopement, thus we will mail her discharge papers and inform her of her results. RICE Continue pain medication as directed F/u with her established Ortho if symptoms do not improve within 1 week - Differential Dx/Diagnosis Provider Diagnosis: Right ankle sprain Discharge - Sign-Out/Discharge Documenting (check all that apply): Patient Departure All imaging exams completed and their final reports reviewed: Yes - Discharge Plan Condition: Stable Disposition: ELOPEMENT Patient Education Materials: Ankle Sprain (ED) Referrals: Paulette Shepherd MD [Primary Care Provider] - Additional Instructions: If you develop a fever, shortness of breath, chest pain, new or worsening symptoms - please call your PCP or go to the ED immediately. 1) The X-Rays of your ankle and foot do not show a fracture today 2) I suspect you have a sprain of your ankle that should improve with time and appropriate rest 3) Please rest, ice, and elevate your ankle/foot intermittently throughout the day 4) May take your pain medications as prescribed for discomfort 5) If your symptoms do not improve within 1 week, please follow up with your Orthopedics doctor for a recheck - Billing Disposition and Condition Condition: STABLE Disposition: Elopement
[2018-12-30 11:53] VITALS: BP 118/69
== END 2018-12-30 13:01 | disposition home or self-care (01) ==
LOC: UCCORT 11:31
DX: S93.401A Sprain of unspecified ligament of right ankle, initial encounter (principal); W19.XXXA Unspecified fall, initial encounter; Y92.009 Unspecified place in unspecified non-institutional (private) residence as the place of occurrence of the external cause; Z91.81 History of falling; F32.9 Major depressive disorder, single episode, unspecified; Z88.1 Allergy status to other antibiotic agents; Z91.030 Bee allergy status; Z88.5 Allergy status to narcotic agent; Z88.8 Allergy status to other drugs, medicaments and biological substances; Z91.048 Other nonmedicinal substance allergy status
CPT/HCPCS: 99212; G0463

== ENCOUNTER 2019-04-17 17:50 | Emergency (ER) | payer MEDICARE, OTHER ==
--- OUTSIDE RECORDS SUMMARY | 2019-04-17 18:15 | XMS REPORT | Continuity of Care Document ---
:1970 External Reference #:[id number] Author Name Shanon Gotti M.D. (transmitted by agent of provider Jessica Gray) Address [address] [place] [id number] Care Team Providers Name Role Phone Paulette Shepherd MD - Internal Medicine Care Team Information Business Office Technology Instructor [phone] Jair Andrews MD - Gastroenterology Care Team Information Business Office Technology Instructor Problems Active Problems Provider Date Chronic hepatitis C Jair Andrews MD Onset: 03/26/2018 Note: 04/25/18 pt denied IV drug use; she has had needle sticks, some tattoos in the since 2009 and some sexual partners have had tattoos; 8 ALTs September 2011 to Apr 2018 all under 30 and normal except one 446 in December 2017; Gastroesophageal reflux disease Jair Andresw MD Onset: 09/03/2003 Note: had heartburn with first and only ; [place] per Dr Mccrary and also EGD in [place] Dr Mccallum 2016; Fibromyalgia Jair Andrews MD Onset: 04/27/2011 Full thickness rotator cuff tear Lelia Camacho MD Onset: 11/07/2017 Note: left side; Dr Camacho surgery April 2017 and October 2017 Posttraumatic stress disorder Jair Andrews MD Onset: 04/27/2010 Anxiety disorder Jair Andrews MD Onset: 04/27/2004 Chronic pain Jair Andrews MD Onset: 04/27/2011 Note: spinal axis with cervical fusion 2016 Morbid obesity Jair Andrews MD Onset: 04/27/1992 Note: high weight was 308 down to 190 in 2008 then 213 spring 2017 and Apr 2018 191 History of bariatric surgical procedure Jair Andrews MD Onset: 2003 Note: attributes chronic nausea to this; preop 308 - lowest post op weight 170 in 2010 and usually 190; Localized, primary osteoarthritis Lelia Camacho MD Onset: 08/26/2018 Note: knees Irritable bowel syndrome with diarrhea Jair Andrews MD Onset: 10/23/1994 Note: has kept Imodium in the cupboard since was a kid; Knee pain Lelia Camacho MD Onset: 01/06/2019 Social History Type Date Description Comments Sex Unknown ETOH Use Denies alcohol use ETOH Use Rarely consumes alcohol Tobacco Use Start: Unknown Patient has never smoked Recreational Drug Use Denies Drug Use Smoking Status Reviewed: 02/27/19 Patient has never smoked Exercise Type/Frequency Exercises sporadically water therapy 2x weekly Exercise Type/Frequency walks Exercise Type/Frequency Exercises regularly Allergies, Adverse Reactions, Alerts Active Allergies Reaction Severity Comments Date Adhesive Tape rash 02/01/2004 Biaxin 08/23/2016 Lexapro 04/01/2017 Codeine Facial swelling, Itching 07/03/2018 Medications Active Medications SIG Qnty Indications Ordering Date Provider Pregabalin 1 by mouth three 90caps Paulette Shepherd MD 02/25/2019 150mg Capsules times a day Oxycodone-Acetaminophe one tablet by 120tabs Unknown 10/01/2018 n mouth every 6 7.5-325mg Tablets hours as needed pain Sertraline HCL 2 by mouth every 60tabs Paulette Shepherd MD 09/22/2018 100mg day Tablets Cyanocobalamin One mL injection 30ml Paulette Shepherd MD 08/26/2018 1000mcg/ML monthly Solution Loperamide HCL 1 by mouth twice 30caps Paulette Shepherd MD 06/30/2018 2mg a day, as needed Capsules diarrhea Clonazepam three times a day 90tabs Paulette Shepherd MD 10/14/2017 1mg Tablets as needed Lasix 1 by mouth every Unknown 20mg Tablets day Nortriptyline HCL Unknown 25mg Capsules Ashlyna Unknown 0.15-0.03&0.01mg Tablets Cetirizine HCL 1 by mouth every Unknown 10mg day Tablets Psscvvmt-Efaimafld-Jmb topical to open Unknown micidin areas every day 1.75-21282-.025 as needed Solution Loratadine 1 by mouth every 30tabs Paulette Shepherd MD 10mg Tablets day as needed Omeprazole 1 by mouth every 90caps Peter T. 20mg Capsules day MD DR Americo Andrews Migraine 1 tab twice a day Unknown as needed for [phone] Tablets migraine Tums 2 chewtabs by Unknown 500mg Chewtabs mouth daily Motrin Ib prn Unknown Ra Vitamin D-3 take 2 tablets by Unknown 1000Unit mouth once daily Tablets Iron 1 by mouth every Unknown 325(65Fe) mg Tablets day Trazodone HCL Take 1/2-1 Tablet 30tabs Paulette Shepherd MD 100mg By Mouth Every Tablets Night AT Bedtime History Medications Tramadol HCL 2 tablet three to 240tabs Paulette Shepherd MD 09/01/2018 - 50mg four times daily 01/05/2019 Tablets as needed Medications Administered in Office Medication SIG Qnty Indications Ordering Provider Date B-12 Injection Nurse Visit A 02/12/2019 Injection Triamcinolone (Kenalog) Lelia Camacho MD 02/12/2019 Injection B-12 Injection Nurse Visit A 01/07/2019 Injection B-12 Injection Nurse Visit A 12/04/2018 Injection Triamcinolone (Kenalog) Lelia Camacho MD 11/25/2018 Injection B-12 Injection Nurse Visit A 11/03/2018 Injection B-12 Injection Nurse Visit A 10/15/2018 Injection B-12 Injection Nurse Visit A 08/26/2018 Injection B-12 Injection Paulette Shepherd MD 07/23/2018 Injection Celestone 3 mg and 3mg Shen Sanchez MD 07/03/2018 Injection Celestone 3 mg and 3mg Shen Sanchez MD 03/11/2017 Injection Celestone 3 mg and 3mg Shen Sanchez MD 11/22/2016 Injection Depomedrol 40MG Shen Sanchez MD 09/07/2016 Injection Depomedrol 40MG Shen Sanchez MD 08/23/2016 Injection Depomedrol 40MG Shen Sanchez MD 08/23/2016 Injection Depomedrol 40MG Rahel Romano MD 02/03/2015 Injection Immunizations Description No Information Available Vital Signs Date Vital Result Comment 02/27/2019 3:27pm Height 63 inches 5'3" Weight 220.00 lb Heart Rate 78 /min BP Systolic 128 mmHg BP Diastolic 72 mmHg Respiratory Rate 12 /min Pain Level 10 BMI (Body Mass Index) 39.0 kg/m2 02/12/2019 4:15pm Height 63 inches 5'3" Weight 219.00 lb Heart Rate 70 /min BP Systolic 128 mmHg BP Diastolic 80 mmHg Body Temperature 97.5 F Pain Level 8 BMI (Body Mass Index) 38.8 kg/m2 Results Test Date Facility Test Result H/L Range Note Hepatitis C 10/15/2018 [facility] HCV Index > 11.0 Index Antibody [address] [place] [address] [phone] Hepatitis C Antibody High Reactive Abnormal Nonreactive 1 Laboratory 10/15/2018 [facility] Hepatitis C Undetected Undetected [address] Rna Quant IU/[place] [address] [phone] Liver 10/15/2018 [facility] Total 6.9 g/dL Normal 6.4-8.[address] [place] [address] [phone] Albumin 4.3 g/dL Normal 3.2-5.2 Globulin 2.6 g/dL Normal 2-4 Albumin/Globulin Ratio 1.7 Normal 1-3 Total Bilirubin 0.40 mg/dL Normal 0.2-1.0 Direct Bilirubin 0.10 mg/dL Normal 0.03-0.18 Indirect Bilirubin 0.3 mg/dL Normal 0.3-1.0 Alkaline Phosphatase 65 U/L Normal 34-104 Alt 10 U/L Normal 7-52 Ast 16 U/L Normal 13-39 CBC No Diff 10/15/2018 [facility] White Blood 5.9 10^3/uL Normal 3.5-10.[address] [place] [address] [phone] Red Blood Count 3.91 10^6/uL Normal 3.70-4.87 Hemoglobin 12.7 g/dL Normal 12.0-16.0 Hematocrit 38 % Normal 33-41 Mean Corpuscular Volume 96 fL Normal 80-97 Mean Corpuscular Hemoglobin 33 pg High 27-31 Mean Corpuscular HGB Conc 34 g/dL Normal 31-36 Red Cell Distribution Width 13 % Normal 10.5-15 Platelet Count 156 10^3/uL Normal 150-450 Mean Platelet Volume 9.2 fL Normal 7.4-10.4 Drug Abuse 20 09/24/2018 [facility] Urine Amphetamine Negative ng/mL [address] [place] [address] [phone] Urine Barbiturates Negative ng/mL 4 Urine Benzodiazepines Negative ng/mL 5 Urine Cocaine Negative ng/mL 6 Urine Phencyclidine Negative ng/mL Cutoff: 25 Urine Tetrahydrocannabinol Negative ng/mL Cutoff: 50 7 Creatinine, Urine 127.8 mg/dL Specific [place] 1.016 pH 5.4 Oxidants Negative 8 Adulterants Comment Normal Codeine, Ur Not Detected ng/mL Cutoff: 25 9 Jjnafdz-6-yoop-glucuronide, Ur Not Detected ng/mL 10 Morphine, Ur Not Detected ng/mL Cutoff: 25 11 Qrkedeqf-1-zgsb-glucuronide, U Not Detected ng/mL 12 6-monoacetylmorphine, Ur Not Detected ng/mL Cutoff: 25 13 Hydrocodone, Ur Not Detected ng/mL Cutoff: 25 14 Norhydrocodone, Ur Not Detected ng/mL Cutoff: 25 15 Dihydrocodeine, Ur Not Detected ng/mL Cutoff: 25 16 Hydromorphone, Ur Not Detected ng/mL Cutoff: 25 17 Uovdpdrjpnqkg0mpuwfiirnqybdca Not Detected ng/mL 18 Oxycodone, Ur Not Detected ng/mL Cutoff: 25 19 Noroxycodone, Ur Not Detected ng/mL Cutoff: 25 20 Oxymorphone, Ur Not Detected ng/mL Cutoff: 25 21 Ihntzawhhno-6-ympy-glucuronide Not Detected ng/mL 22 Noroxymorphone, Ur Not Detected ng/mL Cutoff: 25 23 Fentanyl, Ur Not Detected ng/mL Cutoff: 2 24 Norfentanyl, Ur Not Detected ng/mL Cutoff: 2 25 Meperidine, Ur Not Detected ng/mL Cutoff: 25 26 Normeperidine, Ur Not Detected ng/mL Cutoff: 25 27 Naloxone, Ur Not Detected ng/mL Cutoff: 25 28 Xrmffoem-0-zvjy-glucuronide, U Not Detected ng/mL 29 Methadone, Ur Not Detected ng/mL Cutoff: 25 30 Eddp, Ur Not Detected ng/mL Cutoff: 25 31 Propoxyphene, Ur Not Detected ng/mL Cutoff: 25 32 Norpropoxyphene, Ur Not Detected ng/mL Cutoff: 25 33 Tramadol, Ur Not Detected ng/mL Cutoff: 25 34 O-desmethyltramadol, Ur Not Detected ng/mL Cutoff: 25 35 Tapentadol, Ur Not Detected ng/mL Cutoff: 25 36 N-desmethyltapentadol, Ur Not Detected ng/mL Cutoff: 50 37 Mgxplnjjuy-febo-qtxtziaqgfs, U Not Detected ng/mL 38 Buprenorphine, Ur Not Detected ng/mL Cutoff: 5 39 Norbuprenorphine, Ur Not Detected ng/mL Cutoff: 5 40 Norbuprenorphine glucuronide Not Detected ng/mL Cutoff: 20 41 Opioid Interpretation See Comment 42 Liver Function 08/29/2018 [facility] Total Protein 6.7 g/dL Normal 6.4-8.[address] [place] [address] [phone] Albumin 4.1 g/dL Normal 3.2-5.2 Globulin 2.6 g/dL Normal 2-4 Albumin/Globulin Ratio 1.6 Normal 1-3 Total Bilirubin 0.30 mg/dL Normal 0.2-1.0 Direct Bilirubin 0.10 mg/dL Normal 0.03-0.18 Indirect Bilirubin 0.2 mg/dL Low 0.3-1.0 Alkaline Phosphatase 66 U/L Normal 34-104 Alt 10 U/L Normal 7-52 Ast 16 U/L Normal 13-39 CBC No Diff 08/29/2018 [facility] White Blood 6.5 10^3/uL Normal 3.5-10.[address] [place] [address] [phone] Red Blood Count 3.98 10^6/uL Low 4.00-5.40 Hemoglobin 12.7 g/dL Normal 12.0-16.0 Hematocrit 38 % Normal 35-47 Mean Corpuscular Volume 95 fL Normal 80-97 Mean Corpuscular Hemoglobin 32 pg High 27-31 Mean Corpuscular HGB Conc 34 g/dL Normal 31-36 Red Cell Distribution Width 13 % Normal 10.5-15 Platelet Count 184 10^3/uL Normal 150-450 Mean Platelet Volume 9.7 fL Normal 7.4-10.4 Laboratory 08/29/2018 [facility] Hepatitis C Undetected Undetected 43 test finding [address] Rna Quant IU/[place] [address] [phone] 1 High reactive sample are considered positive for Hepatitis C 2 Result in log IU/mL is Undetected. ADDITIONAL INFORMATION The quantification range of this assay is 15 to 100,000,000 IU/mL (1.18 log to 8.00 log IU/mL). Testing was performed using the naa HCV test ([employer] with the naa Zenph0 System. Test Performed by: [facility] [address] [place] [address] 3 REFERENCE VALUE Cutoff: 500 4 REFERENCE VALUE Cutoff: 200 5 REFERENCE VALUE Cutoff: 100 6 REFERENCE VALUE Cutoff: 150 7 ADDITIONAL INFORMATION This report is intended for use in clinical monitoring or management of patients. It is not intended for use in employment-related testing. 8 REFERENCE VALUE Cutoff: 200 mg/L 9 Tylenol 3 10 Metabolite of codeine REFERENCE VALUE Cutoff: 100 11 Maria E Marie, MS Contin; Also a minor metabolite (10%) of codeine and can be seen in low concentrations (<2,000 ng/mL) with poppy seed ingestion. 12 Metabolite of morphine REFERENCE VALUE Cutoff: 100 13 Metabolite of heroin 14 Lortab, [place], Vicodin; Also a very minor metabolite of codeine and impurity (<1%) of oxycodone. 15 Metabolite of hydrocodone 16 Metabolite of hydrocodone 17 Dilaudid, Exalgo; Also a metabolite of hydrocodone and a minor (<5%) metabolite of morphine. 18 Metabolite of hydromorphone REFERENCE VALUE Cutoff: 100 19 Endocet, Percocet, Oxycontin 20 Metabolite of oxycodone 21 Numorphan, Opana; Also a metabolite of oxycodone. 22 Metabolite of oxymorphone REFERENCE VALUE Cutoff: 100 23 Metabolite of oxymorphone 24 Actiq, Duragesic, Fentora 25 Metabolite of fentanyl 26 Demerol 27 Metabolite of meperidine 28 Narcan 29 Metabolite of naloxone REFERENCE VALUE Cutoff: 100 30 Dolophine 31 Metabolite of methadone 32 Darvon, Darvocet 33 Metabolite of propoxyphene 34 Tradol, Ultram, Ultracet 35 Metabolite of tramadol 36 Nucynta 37 Metabolite of tapentadol 38 Metabolite of tapentadol REFERENCE VALUE Cutoff: 100 39 Buprenex, Suboxone 40 Metabolite of buprenorphine 41 Metabolite of buprenorphine 42 No opioids were detected. The absence of expected drug(s) and/or drug metabolite(s) may indicate non-compliance, altered pharmacokinetics, inappropriate timing of specimen collection relative to drug administration, diluted/adulterated urine, or limitations of testing. ADDITIONAL INFORMATION This test was developed and its performance characteristics determined by [facility] in a manner consistent with CLIA requirements. This test has not been cleared or approved by the U.S. Food and Drug Administration. Test Performed by: [facility] - [address] [address] 43 Result in log IU/mL is Undetected. ADDITIONAL INFORMATION The quantification range of this assay is 15 to 100,000,000 IU/mL (1.18 log to 8.00 log IU/mL). Testing was performed using the naa HCV test ([employer] with the naa Zenph0 System. Test Performed by: [facility] - [address] [address] Procedures Date Code Description Status 02/27/2019 Inject/Drain Joint/Bursa Major W/O US Completed 02/12/2019 09117 Admin Of Inj Completed 02/12/201906049 Inject/Drain Joint/Bursa Major W/O US Completed 01/07/2019 93547 Admin Of Inj Completed 12/04/2018 73405 Admin Of Inj Completed 11/25/2018 Inject/Drain Joint/Bursa Major W/O US Completed 11/03/2018 66513 Admin Of Inj Completed 10/15/2018 27099 Admin Of Inj Completed Medical Devices Description No Information Available Encounters Type Date Location Provider Dx Diagnosis Office Visit 02/12/2019 [facility] Lelia Camacho M17.0 Bilateral primary 3:[facility] osteoarthritis of knee Office Visit 01/06/2019 [facility] Lelia Camacho M79.7 Fibromyalgia 1:30[facility] M17.11 Unilateral primary osteoarthritis, right knee M25.562 Pain in left knee Office Visit 10/23/2018 [facility] Jair Gonzalez8.2 Chronic viral 4:15p MD Darryl hepatitis C G89.4 Chronic pain syndrome M79.7 Fibromyalgia Z79.899 Other assisted (current) drug therapy Office 09/23/2018 [facility] Lelia M17.11 Unilateral primary Visit 1:[facility] MD osteoarthritis, right knee Office 09/01/2018 [facility] Jair Gonzalez8.2 Chronic viral Visit 1:30p MD Darryl hepatitis C M79.7 Fibromyalgia G89.4 Chronic pain syndrome K21.9 Gastro-esophageal reflux disease without esophagitis Assessments Date Code Description Provider 02/27/2019 M17.0 Bilateral primary osteoarthritis of knee Shanon Gotti M.D. 02/27/2019 M79.7 Fibromyalgia Shanon Gotti M.D. 02/27/2019 M25.562 Pain in left knee Shanon Gotti M.D. 02/27/2019 M25.561 Pain in right knee Shanon Gotti M.D. 02/27/2019 M25.462 Effusion, left knee Shanon Gotti M.D. 02/27/2019 M25.461 Effusion, right knee Shanon Gotti M.D. 02/12/2019 M17.0 Bilateral primary osteoarthritis of knee Lelia Camacho MD 02/12/2019 M79.7 Fibromyalgia Nurse Visit A 01/07/2019 M79.7 Fibromyalgia Nurse Visit A 01/06/2019 M79.7 Fibromyalgia Lelia Camacho MD 01/06/2019 M17.11 Unilateral primary osteoarthritis, right knee Lelia Camacho MD 01/06/2019 M25.562 Pain in left knee Lelia Camacho MD 12/04/2018 M79.7 Fibromyalgia Nurse Visit A 11/25/2018 M17.11 Unilateral primary osteoarthritis, right knee Lelia Camacho MD 11/03/2018 M79.7 Fibromyalgia Nurse Visit A 10/23/2018 B18.2 Chronic viral hepatitis C Jair Andrews MD 10/23/2018 G89.4 Chronic pain syndrome Jair Andrews MD 10/23/2018 M79.7 Fibromyalgia Jair Andrews MD 10/23/2018 Z79.899 Other assisted (current) drug therapy Jair Andrews MD 10/15/2018 M79.7 Fibromyalgia Nurse Visit A 09/23/2018 M17.11 Unilateral primary osteoarthritis, right knee Lelia Camacho MD 09/01/2018 B18.2 Chronic viral hepatitis C Jair Andrews MD 09/01/2018 M79.7 Fibromyalgia Jair Andrews MD 09/01/2018 G89.4 Chronic pain syndrome Jair Andrews MD 09/01/2018 K21.9 Gastro-esophageal reflux disease without Jair Andrews MD esophagitis Plan of Treatment Future Appointment(s):05/29/2019 2:00 pm - Shanon Gotti M.D. at [facility].02/27/2019 - Shanon Gotti M.D.M17.0 Bilateral primary osteoarthritis of kneeReferral:Elpidio Glass MD, RheumatologyFollow up:Follow up: 3 cnjcezN66.7 VxgyvfuroecaG73.562 Pain in left kneeM25.561 Pain in right kneeM25.462 Effusion, left kneeM25.461 Effusion, right knee Functional Status Description No Information Available Mental Status Description No Information Available Referrals Refer to Dr Reason for Referral Status Appt Date Elpidio Glass MD eval for ra/systemic inflam arthritide [facility] [address] [facility] [place] [address] [phone] Jair Andrews MD Created [address] [place] [id number] [phone]
[2019-04-17 18:25] VITALS: BP 109/60
--- NOTE | 2019-04-17 18:37 | UC ---
Eye Complaint HPI - HPI Summary HPI Summary: 48 y/o female presents to the urgent care c/o corner of left upper eye lid w/ redness swelling and painful at touch since yesterday. Pt stayed at a hotel last night and went swimming in the hotel pool. Pt states after swimming, her L eye is swollen, red, painful. She has applied Cold compresses do help make the eye feel better. No changes in vision. Pt has hx of a stye in that eye and Hx of dry eyes, and managed by geotechnical operating engineer DR Ambrosio. Pt still uses "moisture drops". Mild yellowish discharge around swelling this morning. Pt denies visual changes, photophobia, ANDERSEN, dizziness, SOB, chest pain,abdominal pain, N/V/D. - History of Current Complaint Chief Complaint: UCEye Stated Complaint: LEFT EYE COMPLAINT Time Seen by Provider: 04/17/19 18:35 Hx Obtained From: Patient Hx Last Menstrual Period: 06/2018 ?: No Onset/Duration: Gradual Onset, Lasting Days - 1 day, Still Present, Worse Since - this morning w/ left upper eye lid swelling and redness Timing: Constant Severity Initially: Mild Pain Intensity: 2 - at touch Pain Scale Used: 0-10 Numeric Location of Injury: Eye Lid (upper) - left upper eyelid Character: Dull Aggravating Factor(s): Blinking Alleviating Factor(s): Nothing Associated Signs And Symptoms: Positive: Drainage (Purulent) - mild, Swelling - left upper eyelid medial side. Negative: Photophobia, Vision Impairment Bilateral, Fever - Risk Factors Penetrating Injury Risk Factor: Negative Globe Rupture Risk Factors: Negative Acute Glaucoma Risk Factors: Negative Optic Artery Occlusion Risk Factors: Negative - Allergies/Home Medications Allergies/Adverse Reactions: Allergies Allergy/AdvReac Type Severity Reaction Status Date / Time Adhesive Tape Allergy Severe pulls skin Verified 04/17/19 18:25 off when take tape off bee venom protein (honey bee) Allergy GI Upset Verified 04/17/19 18:25 and Near Syncope clarithromycin [From Biaxin] Allergy Itching Verified 04/17/19 18:25 codeine Allergy Swelling Verified 04/17/19 18:25 Of Face,Lips,& Throat escitalopram [From Lexapro] Allergy Agitation Verified 04/17/19 18:25 Environmental Allergies Allergy Eyes Uncoded 04/17/19 18:25 Itchy/Swollen/Red/Watery Home Medications: Home Medications tiZANidine TAB* [Zanaflex TAB*] 2 tab PO BEDTIME 04/17/19 [History Confirmed ] PMH/Surg Hx/FS Hx/Imm Hx Previously Healthy: Yes Other Endocrine History: Juvenile RA, GI/ History: Gastroesophageal Reflux - Surgical History Surgical History: Yes Surgery Procedure, Year, and Place: Left Shoulder Rotator Cuff, 2018, [facility] [place]; Left Shoulder Rotator Cuff, 2017, [facility] [place]; 1980-- T&A. BARIATRIC SURGERY 2003 [place]; 1993--C-[facility] [place]; 2010--CHOLECYSTECTOMY; C6-C7 NECK FUSION- 10/2015 [place] - Family History Known Family History: Positive: Hypertension, Diabetes - Social History Occupation: Employed Full-time Lives: With Family Alcohol Use: None Substance Use Type: None Smoking Status (MU): Never Smoked Tobacco Household Exposure Type: Cigarettes Review of Systems All Other Systems Reviewed And Are Negative: Yes Constitutional: Positive: Negative Skin: Positive: Negative Eyes: Positive: Drainage - mild left upper eyelid w/ swelling and red tender pustule ENT: Positive: Negative Respiratory: Positive: Negative Cardiovascular: Positive: Negative Gastrointestinal: Positive: Negative Genitourinary: Positive: Negative Motor: Positive: Negative Neurovascular: Positive: Negative Musculoskeletal: Positive: Negative Neurological: Positive: Negative Psychological: Positive: Negative Is Patient Immunocompromised?: No Physical Exam - Summary Physical Exam Summary: Vital Signs Reviewed: Yes General: Well appearing, well nourished adolescent obese female in no apparent pain distress Eyes: Positive: B/L Conjunctiva clear - Visual acuity: WNL,Visual rucker: full to confrontation. mild periorbital soft tissue swelling at the LF upper eyelid with erythema and white small pustule in the medial side of eyelid, tender to palpation. PERRLA, EOMI intact w/out limitation or complaint of pain. eyelashes clear. mild tearing and mild yellowish drainage observed. No ciliary flush. No chemosis, No photophobia. Normal fundoscopic exam; no proptosis, exophthalmos, nystagmus. ENT: Positive: Normal ENT inspection, Hearing grossly normal, Pharynx normal, Nasal congestion, Nasal drainage - clear, TMs normal - B/L external ear canal clear , TM's WNL. Negative: Tonsillar swelling, Tonsillar exudate Neck: Positive: Supple, Nontender, No Lymphadenopathy Respiratory: Positive: Chest nontender, Lungs clear, Normal breath sounds, No respiratory distress Cardiovascular: Positive: RRR, No Murmur, Pulses Normal, Brisk Capillary Refill Abdomen Description: Positive: Nontender, No Organomegaly, Soft. Negative: CVA Tenderness (R), CVA Tenderness (L) Bowel Sounds: Positive: Present Musculoskeletal: Positive: Strength Intact, ROM Intact, No Edema Neurological Exam: Normal Psychological Exam: Normal Skin Exam: Normal Triage Information Reviewed: Yes Vital Signs: Initial Vital Signs Temp 97.7 F 04/17/19 18:18 Pulse 77 04/17/19 18:18 Resp 16 04/17/19 18:18 BP 109/60 04/17/19 18:18 Pulse Ox 98 04/17/19 18:18 Eye Complaint Course/Dx - Course Course Of Treatment: 48 y/o female presents to the urgent care c/o corner of left upper eye lid w/ redness swelling and painful at touch since yesterday. Pt stayed at a hotel last night and went swimming in the hotel pool. Pt states after swimming, her L eye is swollen, red, painful. She has applied Cold compresses do help make the eye feel better. No changes in vision. Pt has hx of a stye in that eye and Hx of dry eyes, and managed by geotechnical operating engineer DR Ambrosio. Pt still uses "moisture drops". Mild yellowish discharge around swelling this morning. Pt denies visual changes, photophobia, ANDERSEN, dizziness, SOB, chest pain,abdominal pain, N/V/D. Hx obtained. Pt with a left upper eyelid internal hordeolum on examination. Pt Rx Bacitracin Ophthalmic Ointment. PT advised to apply warm compresses and massage the eye with gentle pressure 4-5 times for 10-15min throughout the day. Then apply ABX and if not improvement of symptoms to f/u with her geotechnical operating engineer DR mAbrosio in 3 days for further evaluation and treatment. Pt understood and agreed with plan of care. - Differential Dx/Diagnosis Differential Diagnosis/HQI/PQRI: Conjunctivitis, Keratitis, Periorbital Cellulitis, Uveitis, Other - stye Provider Diagnosis: Hordeolum internum left upper eyelid Discharge ED - Sign-Out/Discharge Documenting (check all that apply): Patient Departure - d/C home All imaging exams completed and their final reports reviewed: No Studies - Discharge Plan Condition: Stable Disposition: HOME Prescriptions: Bacitracin OPHTH.OINT* 1 applic .SEE ORDER Q4HR #1 oint Patient Education Materials: Jacinta (ED) Referrals: Paulette Shepherd MD [Primary Care Provider] - 3 Days Hayley Ambrosio MD [Medical Doctor] - 3 Days Additional Instructions: 1-Please apply ophthalmic ointment in your Left eye as directed. Please apply warm compresses and massage the eye with gentle pressure 4-5 times for 10-15min throughout the day 2- If you do not improve or if symptoms worsen please f/u with your geotechnical operating engineer DR Ambrosio for further evaluation and treatment - Billing Disposition and Condition Condition: STABLE Disposition: Home - Attestation Statements Provider Attestation: I was available for consult. This patient was seen by the [facility]. The patient was not presented to, seen by, or examined by me. -Sandra
== END 2019-04-17 19:09 | disposition home or self-care (01) ==
LOC: UCCORT 17:50
DX: H00.024 Hordeolum internum left upper eyelid (principal); Z88.1 Allergy status to other antibiotic agents; Z88.5 Allergy status to narcotic agent; Z88.8 Allergy status to other drugs, medicaments and biological substances; Z91.09 Other allergy status, other than to drugs and biological substances; Z91.030 Bee allergy status
CPT/HCPCS: 99212; G0463

== ENCOUNTER 2019-07-15 19:00 | Emergency (ER) | payer MEDICARE, OTHER ==
[2019-07-15 19:24] VITALS: BP 134/88
--- NOTE | 2019-07-15 19:27 | UC ---
Throat Pain/Nasal [place] HPI - HPI Summary HPI Summary: Bodyache, scratchy throat x 7-10 days. Coughing and wheezing x4 days and progressively getting worse. No fever. Taking motrin, nyquil and mucinex prn - History of Current Complaint Chief Complaint: UCRespiratory Stated Complaint: UPPER RESPIRATORY Time Seen by Provider: 07/15/19 19:24 Hx Obtained From: Patient Hx Last Menstrual Period: 06/2018 Onset/Duration: Sudden Onset, Lasting Weeks - 1 Severity: Moderate Pain Intensity: 0 Associated Signs & Symptoms: Positive: Dysphagia, Wheezing, Sinus Discomfort, Nasal Discharge - Allergies/Home Medications Allergies/Adverse Reactions: Allergies Allergy/AdvReac Type Severity Reaction Status Date / Time Adhesive Tape Allergy Severe pulls skin Verified 07/15/19 19:24 off when take tape off bee venom protein (honey bee) Allergy GI Upset Verified 07/15/19 19:24 and Near Syncope clarithromycin [From Biaxin] Allergy Itching Verified 07/15/19 19:24 codeine Allergy Swelling Verified 07/15/19 19:24 Of Face,Lips,& Throat escitalopram [From Lexapro] Allergy Agitation Verified 07/15/19 19:24 Environmental Allergies Allergy Eyes Uncoded 07/15/19 19:24 Itchy/Swollen/Red/Watery Home Medications: Home Medications Albuterol HFA INHALER* [Ventolin HFA Inhaler*] 2 puff TID PRN 07/15/19 [History Confirmed 07/15/19] metroNIDAZOLE [Flagyl 500 MG TAB] 1 tab BID 07/15/19 [History Confirmed 07/15/19 ] PMH/Surg Hx/FS Hx/Imm Hx Previously Healthy: Yes - Surgical History Surgical History: Yes Surgery Procedure, Year, and Place: Left Shoulder Rotator Cuff, 2017, [facility] [place] [place]; Left Shoulder Rotator Cuff, 2016, [facility] [place] [place]; 1981-- T&A. BARIATRIC SURGERY 2003 [place]; 1993--C[facility] [place]; 2010--CHOLECYSTECTOMY; C6-C7 NECK FUSION- 10/2015 [place] - Family History Known Family History: Positive: Hypertension, Diabetes - Social History Alcohol Use: None Substance Use Type: None Smoking Status (MU): Never Smoked Tobacco Household Exposure Type: Cigarettes Review of Systems All Other Systems Reviewed And Are Negative: Yes Constitutional: Positive: Fatigue ENT: Positive: Sore Throat, Nasal Discharge Respiratory: Positive: Shortness Of Breath, Cough Physical Exam Triage Information Reviewed: Yes Appearance: Well-Nourished, Ill-Appearing, Pain Distress Vital Signs: Initial Vital Signs Temp 97.1 F 07/15/19 19:19 Pulse 72 07/15/19 19:19 Resp 16 07/15/19 19:19 BP 134/88 07/15/19 19:19 Pulse Ox 96 07/15/19 19:19 Vital Signs Reviewed: Yes Eye Exam: Normal ENT: Positive: Pharyngeal erythema, TM bulging Neck exam: Normal Respiratory: Positive: No respiratory distress, No accessory muscle use, Rhonchi , Wheezing, Inspiration Cardiovascular: Positive: RRR, No Murmur, Pulses Normal Abdomen Description: Positive: Nontender, No Organomegaly, Soft Psychological Exam: Normal Skin Exam: Normal Throat Pain/Nasal Course/Dx - Course Course Of Treatment: hx obtained, exam performed ,meds reviewed, treated for bronchitis - Differential Dx/Diagnosis Differential Diagnosis/HQI/PQRI: Laryngitis, Pharyngitis, Sinusitis, URI Provider Diagnosis: Bronchitis Discharge ED - Sign-Out/Discharge Documenting (check all that apply): Patient Departure All imaging exams completed and their final reports reviewed: No Studies - Discharge Plan Condition: Stable Disposition: HOME Prescriptions: predniSONE [Prednisone 20 MG TAB] 40 mg PO DAILY #10 tablet Patient Education Materials: Acute Bronchitis (ED) Referrals: Paulette Shepherd MD [Primary Care Provider] - Additional Instructions: 1. take the medication as prescribed. 2. Salt water gargles to clear the throat of post nasal drip 3. Heaat vicks into the chest 4. Humidify the air at night 5. Ibuprofen and tylenol for pain and fever. 6. follow up as needed. - Billing Disposition and Condition Condition: STABLE Disposition: Home - Attestation Statements Provider Attestation: This patient was not seen by me. I was available for consult. Chart reviewed. AMANDA
[2019-07-15] MEDS ORDERED: Albuterol/Ipratropium NEB.SOL* Albuterol 2.5 MG/Ipratropium 0.5 MG 3 ML INH ONE (19:32)
== END 2019-07-15 19:56 | disposition home or self-care (01) ==
LOC: UCCORT 19:00
DX: J40 Bronchitis, not specified as acute or chronic (principal); J39.2 Other diseases of pharynx; J02.9 Acute pharyngitis, unspecified; R09.89 Other specified symptoms and signs involving the circulatory and respiratory systems; Z79.899 Other long term (current) drug therapy; Z91.09 Other allergy status, other than to drugs and biological substances; Z88.8 Allergy status to other drugs, medicaments and biological substances; Z88.5 Allergy status to narcotic agent; Z91.030 Bee allergy status; Z88.1 Allergy status to other antibiotic agents
CPT/HCPCS: 99212; A9270-GY; G0463

== ENCOUNTER 2019-08-22 18:58 | Emergency (ER) | payer MEDICARE ==
--- OUTSIDE RECORDS SUMMARY | 2019-08-22 19:26 | XMS REPORT | Continuity of Care Document ---
:1970 External Reference #:[id number] Author Name Carmella Marina MD, PHD Address [address], [address] [place] [address] Care Team Providers Name Role Phone Talia Menjivar MD - Clinical Care Team Information [facility] [phone] Carmella Marina MD, PHD - Family Care Team Information [facility] Lelia Camacho MD - Orthopaedic Care Team Information [facility] Shanon Gotti M.D. - Adult Care Team Information [facility] [phone] Reconstructive Orthopaedic Surgery Jair Andrews MD - Gastroenterology Care Team Information [facility] [phone] Jim Schmitt MD - Physical Care Team Information [facility] Care Team Information [facility] [phone] Problems Active Problems Provider Date Dental abscess Onset: 11/08/2014 Low back pain Onset: 09/28/2014 Fall Onset: 09/28/2014 Shoulder pain Onset: 01/27/2015 Eruption Haylee Soria MD Onset: 07/27/2015 Gastroesophageal reflux disease Haylee Soria MD Onset: 07/27/2015 Moderate recurrent major depression Haylee Soria MD Onset: 07/27/2015 Diarrhea Haylee Soria MD Onset: 11/10/2015 Anxiety state Haylee Soria MD Onset: 11/10/2015 Acne Haylee Soria MD Onset: 11/10/2015 Cervical disc disorder Haylee Soria MD Onset: 11/10/2015 Social History Type Date Description Comments Sex Unknown Smokeless Tobacco Never Used Smokeless Tobacco ETOH Use Rarely consumes alcohol Tobacco Use Start: Unknown Patient denies history of smoking Recreational Drug Use Denies Drug Use Smoking Status Reviewed: 07/28/19 Patient denies history of smoking Allergies, Adverse Reactions, Alerts Active Allergies Reaction Severity Comments Date Environmental 01/10/2009 NSAIDS (Non-Steroidal 03/17/2015 Anti-Inflamma Lexapro 11/29/2016 Biaxin Facial swelling, Hives 07/28/2019 Codeine feels like scalp is on 07/28/2019 fire Medications Active Medications SIG Qnty Indications Ordering Date Provider Vitamin D3 Ultra 1 by mouth every day 90caps [place], 07/28/2019 Strength MD Carmella, 125mcg PHD (5000 Ut) Capsules Magnesium Gluconate 1 tab by mouth twice 60tabs [place], 07/28/2019 a day after meals as MD Carmella, 500(27mg) mg needed for muscle PHD Tablets spasms Voltaren apply to affected 900gm [place], 07/28/2019 1% Gel area four times a MD Carmella, day PHD D3 Maximum Strength 1 cap by mouth every 90caps F33.1 [place], 07/28/2019 day with food MD Carmella, 5000Unit Capsules PHD Nac 600 1 cap by mouth three 90caps F33.1 [place], 07/28/2019 600mg times a day after MD Carmella, Capsules meals PHD Iron take one tablet a 90tabs Haylee Soria, 11/10/2015 325(65Fe) mg day MD Tablets Imodium A-D 1-2 tabs by mouth 180tabs Haylee Soria, 11/10/2015 2mg every 4 hours as MD Tablets needed loose stool Prilosec 1 by mouth daily 60caps K21.9 Haylee Soria, 04/18/2015 40mg sometimes bid MD Capsules DR Ku 1-2 tab by mouth Unknown 500mg Chewtabs four times a day heartburn Fungicure Intensive apply to affected Unknown With Nailguard toes once daily 1% Solution Clindamycin apply to face once a Unknown Phosphate day 1% Lotion Doxycycline Hyclate 1 tab twice a day Unknown 50mg Capsules Clonazepam 1 tab twice a day as 180tabs Unknown 1mg needed Tablets Oxycodone HCL 1 tab three times a 90tabs Unknown 10mg day Tablets Multi For Her 1 by mouth every day Unknown Capsules Dulcolax 2 tabs at night prn Unknown 5mg for constipation Tablets DR Sertraline HCL 1 by mouth every day Unknown 100mg Tablets Lyrica 1 tab by mouth tid 90caps G89.4 [place], 150mg Reference #: MD Carmella, Capsules [id number] PHD Trazodone HCL 1/2 po @ hs 30tabs Unknown 100mg Tablets Tizanidine HCL AT Bedtime Unknown 4mg Tablets Immunizations Description No Information Available Vital Signs Date Vital Result Comment 07/28/2019 12:55pm BP Systolic 120 mmHg BP Diastolic 78 mmHg Body Temperature 96.8 F Heart Rate 81 /min Respiratory Rate 16 /min Height 63 inches 5'3" Weight 202.00 lb BMI (Body Mass Index) 35.8 kg/m2 BSA (Body Surface Area) 1.94 m2 [place] body weight in kilograms 52 kg O2 % BldC Oximetry 95 % 02/19/2017 2:57pm BP Systolic Sitting Left Arm 118 mmHg BP Diastolic Sitting Left Arm 78 mmHg Heart Rate 57 /min Respiratory Rate 16 /min Height 64 inches 5'4" Weight 217.00 lb BMI (Body Mass Index) 37.2 kg/m2 BSA (Body Surface Area) 2.03 m2 [place] body weight in kilograms 54 kg Results Description No Information Available Procedures Description No Information Available Medical Devices Description No Information Available Encounters Type Date Location Provider Dx Diagnosis Office Visit 07/28/2019 Family Medicine Carmella Marina, M06.4 Inflammatory 1:00p Dion Christy MD, PHD polyarthropathy E55.9 Vitamin D deficiency, unspecified Z98.84 Bariatric surgery status F33.1 Major depressive disorder, recurrent, moderate F41.9 Anxiety disorder, unspecified G89.4 Chronic pain syndrome Z79.891 [facility] (current) use of opiate analgesic Z79.899 Other nursing home (current) drug therapy Assessments Date Code Description Provider 07/28/2019 M06.4 Inflammatory polyarthropathy Carmella Marina MD, PHD 07/28/2019 E55.9 Vitamin D deficiency, unspecified Carmella Marina MD, PHD 07/28/2019 Z98.84 Bariatric surgery status Carmella Marina MD, PHD 07/28/2019 F33.1 Major depressive disorder, recurrent, Carmella Marina MD, PHD moderate 07/28/2019 F41.9 Anxiety disorder, unspecified Carmella Marina MD, PHD 07/28/2019 G89.4 Chronic pain syndrome Carmella Marina MD, PHD 07/28/2019 Z79.891 [facility] (current) use of opiate Carmella Marina MD, PHD analgesic 07/28/2019 Z79.899 Other nursing home (current) drug therapy Carmella Marina MD, PHD Plan of Treatment Future Appointment(s):08/12/2019 2:00 pm - Carmella Marina MD, PHD at [facility]07/28/2019 - Carmella Marina MD, PHDM06.4 Inflammatory polyarthropathyNew Labs:Rheumatoid Panel ([facility]), Ordered: 07/28/19Lyme Igg &amp ; Igm By Western Blot, Ordered: 07/28/19Comprehensive Metabolic Panel, Ordered: 07/28/19CBC W/Automated Diff, Ordered: 07/28/19Vitamin D,25-Hydroxy, Ordered: Vitamin B12 And Folate, Ordered: 07/28/19Iron-Tibc-%Sat, Ordered: Follow up:Follow up in 2-3 weeks to go over lab results.E55.9 Vitamin D deficiency, unspecifiedNew Labs:Vitamin D,25-Hydroxy, Ordered: 07/28/19Comments: Magnesium gluconate is the best type. Can help with muscle spasms. Too much could cause diarrhea.Z98.84 Bariatric surgery statusNew Labs:Vitamin B12 And Folate, Ordered: 07/28/19Iron-Tibc-%Sat, Ordered: 07/28/19F33.1 Major depressive disorder, recurrent, moderateNew Medication:D3 Maximum Strength 5000 Unit - 1 cap by mouth every day with foodNac 600 600 mg - 1 cap by mouth three times a day after mealsFollow up:4 week follow up or sooner if needed.F41.9 Anxiety disorder, unspecifiedComments:To help lesson mood and anxiety with neutraceuticals - long-term, will take weeks to months to show an effect often: Vitamin D - likely deficient due to moct[place]uma effect in [place]. Implicated in osteoporosis, osteopenia, fatigue, increased risk of diabetes, and depression/ seasonal affective disorder. Recommend you take 4000 to 5000 IU of Vitamin D3 daily. Can check vitamin D25 level - takes year+ to replace deficiency. Can get capsule or gummy over the counter. Laurel 3 - essential fatty acid has a mild moodstabilizing effect. Good supplement for kids and aids brain development. Increases good cholesterol and helps clean plaque out of arteries, also has an anti-inflammatory effect for joints, skin, etc. recommend 1000mg of DHA +EPA daily - capsule or gummy over the counter. N-acetyl Cysteine - current studies show a an anti-agitation, improved clarity of thought effect. Biologically seems to reduce inflammation in nervous system. Studies show 1800mg to 2400mg daily safe. Improvements start at 3 weeks, continue to improve at 12 weeks of taking.G89.4 Chronic pain syndromeComments:More than 30% of Americans suffer from acute or chronic pain conditions and many of them are turningto opioid painkillers as a solution. Prescriptions for opioid painkillers have steadily increased over the past 25 years, from 76 million prescription in 1991 to 259 million prescriptions in 2012; morethan enough to give every adult Citizen [place] their own bottle of pills.Opioids use is not without consequence, however. These powerful drugs can have a long list of side effects and long-term effects. Here??s what you need to know about how opioids work in your brain, body, and the side effects of short and long-term use.What are Opioids?Opioids are a class of drugs also called narcotic painkillers and are derived naturally or synthetically from the opium poppy.Some commonly used opioids include:?? Fentanyl??Hydrocodone??Methadone??Morphine??OxycodoneThese painkillers have been used in brand name ??combination?? drugs in which opioids are mixed with an qcat-fmb-fpgtfoo pain reliever like acetaminophen or ibuprofen. Examples of such drugs include OxyContin and Percocet, which contains oxycodone, and Vicodin , which contains hydrocodone.What are Opioids Prescribed For?Narcotic painkillers have been usedto treat both chronic pain and more common kinds of pain caused by back injuries, headaches, arthritis and other conditions.How do Opioids Work?Opioids don??t work by removing pain, but rather by decreasing the perception of pain and producing a sense of pleasure and well-being.Opioid chemicals travelthrough the bloodstream to the brain, where they attach to specialized proteins on the surface of opiate-sensitive brain cells (neurons). This triggers a release of dopamine, a feel-good chemical that??s activated as a part of the brain??s reward system.What are the Side Effects of Opioid Use? The mostcommon side effects of opioid use are constipation and nausea. Other common side effects of opioid use include sedation, dizziness, vomiting, tolerance, physical dependence, and respiratory depression.Less common side effects of opioid use may include:??Gastroparesis: a disorder also known as delayed gastric emptying, which slows or stops the movement of food from the stomach to the small intestine, leading to pain, excess gas, bloating, heartburn , and weight loss.??Hyperalgesia: hypersensitivity topain caused by opioid use which causes the nervous system to become overly sensitive to painful, andnonpainful, stimulus.??Muscle rigidity: the inability of muscles to relax normally, causing muscle pain as muscles stay contracted for a long period of time.??Myoclonus: sudden involuntary jerking or twitching of a muscle or group of muscles which cannot be controlled.[facility] use of opioid prescription medications (6 months of use or longer) can cause serious side effects, particularly when taken at high doses.What are some of the more dangerous side effects?What??s the Danger of Plastic Top Assembler Opioid Use?Prolonged use of opioids may have adverse consequences to treating pain and to your body. Some ofthe less- common side effects of opioid use mentioned above, such as hyperalgesia ( increased sensitivity to pain) become more common when opioids are used in high amounts or over a longer period of time. Other long-term side effects of opioid use can include:Hormonal dysfunctionProlonged opioid use canhave hormonal effects that result menstrual period changes as well as reduced fertility, libido, andsex drive.ImmunosuppressionProlonged use of opioids can also result in immunosuppression, or a weakening of the immune system. The most prevalent effect of opioid-induced immunosuppression have been reported as increased susceptibility to infection, increased risk of cancer, and an increased risk of HIV infection in drug abusers.Long-term opioid use can lead to:??Abnormal pain sensitivity??Amenorrheaor irregular menses??Increased risk of AFib, heart attack , and heart infection??Galactorrhea, excessive or inappropriate production of milk??Immunosuppression??Increased risk of overdose??Reduced energy and drive?? Reduced fertility??Reduced libido??Testosterone depletionThe Serious Side Effects of Long-term Opioid Use - 1Opioid Addiction: A Serious Side Effect of Long-Term Opioid UseThe physical sideeffects of opioid use can range from uncomfortable to life-threatening. But the potential for abuse is one that deserves extra attention. Because the risk of developing an addiction to opioids is high,and one of the major reasons that [place] is in the midst of an unprecedented opioid crisis.There are multiple factors that can lead to opioid addiction.Your Brain on Opioids: Pursuing the RewardRemember how opioids work: they reduce the perception of pain by triggering pleasurable chemicals to be released and activating the reward system of the brain.The brain associates the action of taking the opioid with a pleasurable reward event. The brain is wired to continue to seek out pleasurable actions/ events, which can lead to a subconscious ??craving?? for more and more opioid use. In other words, the brain is learning that opioid use is a positive experience that should be repeated.Opioid Tolerance: The Need for MoreOne of the most common side effects of opioid use, especially long-term use, is tolerance. Tolerance occurs when an individual needs greater amounts of a drug in order to achieve its therapeutic effect.When someone first receives an opioid prescription, for example, they may need twopills per day to reduce their perception of pain. However, as time goes by, it begins to take three,four, or more pills per day to achieve the same pain-relieving effects.At some point, their medical professional may prescribe a more potent, longer-acting opioid. But over time the patient can become tolerant to even the most potent prescription, requiring more and more of the drug to get the same effect.Opioid WithdrawalAnother factor contributing to a high risk of opioid abuse is physiological withdrawal symptoms. Prolonged use of opioids changes the way nerve receptors work in the brain, which eventually become dependent on the drug to function. When an opioid user stops or decreases opioid use, it can lead to physical symptoms of withdrawal which can range from mild to moderate or severe.Opioid withdrawal symptoms may include :??Muscle aches??Restlessness??Anxiety??Eyes that tear up??Runny nose?? Excessive sweating??Inability to sleep??Yawning very often??Diarrhea??Abdominal cramping??Goose bumps on the skin??Nausea and vomiting??Dilated pupils and possibly blurry vision??Rapid heartbeat??High blood pressureOpioid withdrawal symptoms can be very uncomfortable, and opioid users may continue to take their drugs to avoid the physical withdrawal effects.Fatal Overdose: the Lethal Side Effect of Opioid UseThere is one final effect of opioid use that must be addressed: the risk of fatal overdose.Drug overdose is the leading cause of accidental in [place], and opioid overdoses are drivingthe epidemic. As opioid prescriptions increase, the rate of opioid overdose deaths increased in parallel. Over the course of ten years, the rate of opioid prescriptions quadrupled ?? as did the rate ofopioid overdose deaths.7As of 2016, deaths from opioid overdose now outnumber deaths from car accidents and gun deaths.Most commonly overdosed8 opioids:??Methadone??Oxycodone (Oxycontin)??Hydrocodone ( Vicodin)Not every person who uses opioids will become physically dependent, addicted, or will be the victim of a fatal overdose. However, rates of opioid misuse, abuse, and addiction are estimated to range from 15% ?? 26%.9That means there is a risk for one in every four opioid users to fall victim to the dangerous effects of opioid abuse, with potentially fatal results.The Serious Side Effects of Long-term Opioid Use - 2Is Opioid Use Right for You?Effective September 22, 2017, State legislation signed byGoinga Patel states that "No opoids shall be prescribed to a patient initiating or being maintained on opoid treatment for pain which has lasted more than 3 motnhs or past the time of normal tissue healing, unless the medical record contains a written treatment plan that follows generally accepted national professional or governmental guidelines. The requirements of this paragraph will not apply inthe case of patients who are being treated for: CANCER that is not in remission _Hospice, End of Life or Palliative care If you are already dependent upon chronic narcotics, opoid therapy must be 1 - Tapered to lower dosages or tapered and discontinued if benefits outweigh risks2 - we must review the risks and alternatives to opoid treatment and,3 - we must evaluate risk factors for opoid-related harms. Chronic pain is one of the most prevalent medical conditions, and one of the most difficult to manage. If you are considering nursing home use of opioids, be sure that:??Nonopioid therapy has failed.??You understand the true benefits and risks of the long-term use of opioids.??The initial dose of opioid medication increases should be achieved within weeks.?? Opioid dosage is moderate.??Further increases in the dose are introduced with extreme caution.??You use a single physician and pharmacy.??You use adjunctive treatments for pain whenever possible.??Your doctor fully documents the entire prescription process, which should include an initial, comprehensive medical history and physical examination, agreed-on goals for treatment, regular assessment of whether the goals are being achieved, and careful monitoring for signs of opioid abuse (including toxicologic screening in some cases).??You are willing to end opioid treatment if the goals are not met.1.https:// www.drugabuse.gov/about-minerva/legislative -activities/kjcfuydub-ox-lllaxirb/2015/ [place]-ad ucmmcyf-if-qdowulf-vegfva-aiuvngfcdesv-zoyi-abuse2.http:// www.cdc.gov/vitalsigns/opioid-prescribing/3.https://www.ncbi.nlm.nih.gov/pmc/ articles/VJX0094893/4.https://www.ncbi.nlm.nih.gov/pubmed/122003156.http:// www.[employer].com/viewarticle/750224_136.http://www.[employer].Sparktrend/health/opiate- withdrawal7.http://www.asam.org/docs/default-source/advocacy /opioid-addiction- xajhwpu-jrvlm-gbnpwxz.pdf8.http://www.cdc.gov/drugoverdose/data/ overdose.html9.http://www.nejm.org/doi/full/10.1056/UGNNcy5504484#t=audrtpd75. [facility] Public Health Law TS1924 paragraph 8Z79.891 [facility] (current) use of opiate wnbxpglqiO94.899 Other nursing home (current) drug therapyComments: Discussed risks of combining benzos and opoids and increased risk of overdose. But also reviewed risk of withdrawal.AllComments:Arnica with MSM cream rubbed into sore joints is as good as Motrin, but safer. You can find it on amazon. Tea tree oil with vitamin E can help after shaving or with other bumps on skin. Goals 07/28/2019 - Carmella Marina MD, PHDF33.1 Major depressive disorder, recurrent , moderateAction plan for overcoming depression Find a counselor you trust. Get 30 min of any type of exercise daily. Check out the Free Wendy "Head Space" to help with meditation. Get 7-8 hours of sleep at night. Up your intake of essential omega 3 fatsThis means eating oily fish at least twice a week, seeds on most days and supplementing omega 3 fish oils. The best fish for EPA, the type of omega 3 fat that??s linked with improving mood, are: Mackerel (1,400mg per 100g/3oz), Ward/kipper (1,000mg), Sardines (1,000mg),fresh tuna (900mg), Anchovy (900mg), [place] (800mg),[place] (500mg). Tuna, being high inmercury is best eaten not more than three times a month. The best seeds are flax seeds and pumpkin seeds. Flax seeds are so small they are best ground and sprinkled on cereal. Alternatively, use flax seed oil, for example in salad dressings. While technically providing omega 3 only about 5% of the type of omega 3 (alpha linolenic acid) in these seeds is converted in your body into EPA. Laurel-3 seedsand seed oil should not be cooked. When supplementing omega 3 fish oils you are aiming for about 1,000mg of EPA a day for a mood boosting effect. That means supplementing a concentrated Laurel 3 Fish Oil capsule providing 500mg, once or twice a day and eating a serving of any of the above fish three times a week. Check your homocysteine level and get enough B vitaminsYour homocysteine level is an indicator of your B vitamin needs. , You can be tested through your GP or using a home test kit. If your level is above 9mmol/l take a combined ?? homocysteine?? supplement of B2, B6, B12, folic acid, zinc, and TMG, providing at least 400mcg of folic acid, 250mcg of B12 and 20mg of B6. If your homocysteine score is above 15mmol/l double this amount. Also eat B vitamin rich whole foods ?? whole grains, beans, nuts, seeds, fruits and vegetables. Folic acid is particularly rich in green vegetables, beans, lentils, nuts and seeds, while B12 is only found in animal foods ?? meat, fish, eggs and dairy produce. A good starting point is also to supplement a multivitamin providing optimal levels of B vitamins,which means 25mg-50mg of B1, B2, B3 (niacin), B5 ( pantothenic acid), B6 (pyridoxine) and at least 100mcg of folic acid and 10mcg of B12 and biotin. Consider supplementing the amino acid 5-HTPMost of the effective studies used 300mg of 5-HTP, however we ideally recommend testing if you are low in serotonin with a platelet serotonin test and starting with 100mg , or 50mg twice a day. If 5-HTP is not available, you could supplement the amino acid tryptophan in amounts of 500mg ?? 2g per day ?? again, we would suggest starting at the lower end. Tryptophan is best absorbed either on an empty stomach or,ideally, with a carbohydrate snack such as a piece of fruit or an oatcake. 5-HTP is well-absorbed with or without food. Also, make sure you eat enough protein from beans, lentils, nuts, seeds, fish, eggs and meat, which are all high in tryptophan. Do not take 5-HTP or tryptophan if you are currently taking an anti-depressant without your doctor??s permission. Avoid or reduce caffeine, sugar, refinedcarbohydrates and alcoholEat a diet that will stabilise your blood sugar (known as the Low GL diet).The jones points are: Only eat low GL carbohydrates; Always combine your low GL carbohydrates with protein in a ratio of 1:1; Eat at regular intervals, including snacks that include low GL carbohydrate and protein such as fresh fruit with a handful of nuts, oatcakes with homous or celery and cottage cheese; Only eat sweet foods as a very occasional treat and only after a meal or healthy snack. To really get to swimming pool maintenance with this type of eating plan, we highly recommend Monty Danielle? ?s Low GL Dietbook. Consider supplementing chromiumIf you suffer from ?? atypical depression?? (see above) studiesshow that 600mcg of chromium a day is effective. Supplements generally come in 200mcg pills. Take two with breakfast and one with lunch. If this works, after a month reduce to one with breakfast and one with lunch. If this works, reduce to one with breakfast after a further month. Don??t take chromiumin the evening as it can be stimulating. In addition to supplementing chromium, you should adopt the low GL Diet style of eating as outlined above. Have a vitamin D testAsk your GP or nutritional therapist for a vitamin D test. If your level is below 75 nmol/litre, supplement 2,000 iu per day for 12weeks, and then get a retest. Get some sensible sun exposure, without sun-block, but don??t risk your skin health by allowing yourself to get sunburned! Investigate food intolerancesYou may suspect some foods which may or may not be one of the usual suspects - are gluten (wheat, rye, barley), wheat,dairy (all types ?? cow, sheep, goat, milk, cheese, cream etc), soya, yeast and eggs. If this is thecase, you could try an exclusion of the food or foods for a brief trial period. Alternatively, you could undertake an IgG CANDICE blood test to determine whether you have raised antibody levels to specific foods in your blood which is a good indication. Either way, don??t make dramatic changes to your diet or cut out whole food groups without professional guidance to ensure your diet remains healthy and balanced ?? this is especially important for the frail and for children. Finding helpF41.9 Anxiety disorder, unspecifiedAction plan for overcoming depression Find a counselor you trust. Get 30 min of any type of exercise daily. Check out the Free Wendy "Head Space" to help with meditation. Get 7-8 hours of sleep at night. Up your intake of essential omega 3 fatsThis means eating oily fish at least twice a week, seeds on most days and supplementing omega 3 fish oils. The best fish for EPA, the type of omega 3 fat that??s linked with improving mood, are: Mackerel (1,400mg per 100g/3oz), Ward/ kipper (1,000mg), Sardines (1,000mg),fresh tuna (900mg), Anchovy (900mg), [place] (800mg),[place] (500mg). Tuna, being high inmercury is best eaten not more than three times a month. The best seeds are flax seeds and pumpkin seeds. Flax seeds are so small they are best ground and sprinkled on cereal. Alternatively, use flax seed oil, for example in salad dressings. While technically providing omega 3 only about 5% of the type of omega 3 (alpha linolenic acid) in these seeds is converted in your body into EPA. Laurel-3 seedsand seed oil should not be cooked. When supplementing omega 3 fish oils you are aiming for about 1,000mg of EPA a day for a mood boosting effect. That means supplementing a concentrated Laurel 3 Fish Oil capsule providing 500mg, once or twice a day and eating a serving of any of the above fish three times a week. Check your homocysteine level and get enough B vitaminsYour homocysteine level is an indicator of your B vitamin needs. , You can be tested through your GP or using a home test kit. If your level is above 9mmol/l take a combined ?? homocysteine?? supplement of B2, B6, B12, folic acid, zinc, and TMG, providing at least 400mcg of folic acid, 250mcg of B12 and 20mg of B6. If your homocysteine score is above 15mmol/l double this amount. Also eat B vitamin rich whole foods ?? whole grains, beans, nuts, seeds, fruits and vegetables. Folic acid is particularly rich in green vegetables, beans, lentils, nuts and seeds, while B12 is only found in animal foods ?? meat, fish, eggs and dairy produce. A good starting point is also to supplement a multivitamin providing optimal levels of B vitamins,which means 25mg-50mg of B1, B2, B3 (niacin), B5 ( pantothenic acid), B6 (pyridoxine) and at least 100mcg of folic acid and 10mcg of B12 and biotin. Consider supplementing the amino acid 5-HTPMost of the effective studies used 300mg of 5-HTP, however we ideally recommend testing if you are low in serotonin with a platelet serotonin test and starting with 100mg , or 50mg twice a day. If 5-HTP is not available, you could supplement the amino acid tryptophan in amounts of 500mg ?? 2g per day ?? again, we would suggest starting at the lower end. Tryptophan is best absorbed either on an empty stomach or,ideally, with a carbohydrate snack such as a piece of fruit or an oatcake. 5-HTP is well-absorbed with or without food. Also, make sure you eat enough protein from beans, lentils, nuts, seeds, fish, eggs and meat, which are all high in tryptophan. Do not take 5-HTP or tryptophan if you are currently taking an anti-depressant without your doctor??s permission. Avoid or reduce caffeine, sugar, refinedcarbohydrates and alcoholEat a diet that will stabilise your blood sugar (known as the Low GL diet).The jones points are: Only eat low GL carbohydrates; Always combine your low GL carbohydrates with protein in a ratio of 1:1; Eat at regular intervals, including snacks that include low GL carbohydrate and protein such as fresh fruit with a handful of nuts, oatcakes with homous or celery and cottage cheese; Only eat sweet foods as a very occasional treat and only after a meal or healthy snack. To really get to swimming pool maintenance with this type of eating plan, we highly recommend Monty Danielle? ?s Low GL Dietbook. Consider supplementing chromium if you suffer from ?? atypical depression?? (see above) studies show that 600mcg of chromium a day is effective. Supplements generally come in 200mcg pills. Take two with breakfast and one with lunch. If this works, after a month reduce to one with breakfast and one with lunch. If this works, reduce to one with breakfast after a further month. Don??t take chromium in the evening as it can be stimulating. In addition to supplementing chromium, you should adopt the low GL Diet style of eating as outlined above. Have a vitamin D test. Ask your GP or nutritional therapist for a vitamin D test. If your level is below 75 nmol/litre, supplement 2,000 iu per day for12 weeks, and then get a retest. Get some sensible sun exposure, without sun-block, but don??t riskyour skin health by allowing yourself to get sunburned! Investigate food intolerances. You may suspect some foods which may or may not be one of the usual suspects - are gluten (wheat, rye, barley), wheat, dairy (all types ?? cow, sheep, goat, milk, cheese, cream etc), soya, yeast and eggs. If this is the case, you could try an exclusion of the food or foods for a brief trial period. Alternatively,you could undertake an IgG CANDICE blood test to determine whether you have raised antibody levels to specific foods in your blood which is a good indication. Either way, don??t make dramatic changes to your diet or cut out whole food groups without professional guidance to ensure your diet remains healthy and balanced ?? this is especially important for the frail and for children. Finding help Functional Status Functional Condition Comment Date Status Independent with all ADL's Active Mental Status Description No Information Available Referrals Description No Information Available
[2019-08-22 19:51] VITALS: BP 131/71
--- NOTE | 2019-08-22 20:09 | UC ---
Respiratory Complaint HPI - HPI Summary HPI Summary: Coughing spells w/ occasional dizziness, feeling ill x 4 days. she did not get the flu vaccine this year. of note she has been taking doxy bid for 2 days as these were rx'd by her reading assistant for rosacea and she thought it would help cough. Was seen in 06/2019 here and feels like she Never recovered from last visit although she felt better after tx x2 wks. She was dx'd w/ bronchitis rx'ed steroid in 06/2019 - History of Current Complaint Chief Complaint: UCGeneralIllness Stated Complaint: COUGH/HEADACHE Time Seen by Provider: 08/22/19 19:28 Hx Obtained From: Patient Hx Last Menstrual Period: 06/2018 Pain Intensity: 6 Pain Scale Used: 0-10 Numeric Character: Cough: Nonproductive Aggravating Factors: Deep Breaths Associated Signs And Symptoms: Negative: Dyspnea - Allergies/Home Medications Allergies/Adverse Reactions: Allergies Allergy/AdvReac Type Severity Reaction Status Date / Time Adhesive Tape Allergy Severe pulls skin Verified 08/22/19 19:51 off when take tape off bee venom protein (honey bee) Allergy GI Upset Verified 08/22/19 19:51 and Near Syncope clarithromycin [From Biaxin] Allergy Itching Verified 08/22/19 19:51 codeine Allergy Swelling Verified 08/22/19 19:51 Of Face,Lips,& Throat escitalopram [From Lexapro] Allergy Agitation Verified 08/22/19 19:51 Environmental Allergies Allergy Eyes Uncoded 08/22/19 19:51 Itchy/Swollen/Red/Watery Home Medications: Home Medications Omeprazole CAP (NF) [Prilosec CAP* 20 MG] 40 mg PO BID 01/08/14 [History Confirmed 08/22/19] Sertraline* [Zoloft*] 200 mg PO DAILY 05/13/17 [History Confirmed 08/22/19] Cholecalciferol TAB* [Vitamin D TAB*] 2,000 units PO DAILY 11/02/17 [History Confirmed 08/22/19] Ibuprofen TAB* [Advil TAB*] 600 - 800 mg PO Q6H PRN 11/02/17 [History Confirmed 08/22/19] Magnesium Oxide [Magnesium] 500 mg PO DAILY 11/02/17 [History Confirmed 08/22/19 ] clonazePAM TAB(*) [Klonopin TAB(*)] 1 mg PO BID PRN 03/17/18 [History Confirmed 08/22/19] diphenhydrAMINE HCl [Benadryl Allergy] 25 mg PO Q6HR 09/24/18 [History Confirmed 08/22/19] Oxycodone TAB(NF) [Oxycodone HCl 10 MG] 10 mg PO TID 06/22/19 [History Confirmed 08/22/19] Pregabalin [Lyrica] 150 mg PO TID 06/22/19 [History Confirmed 08/22/19] Albuterol HFA INHALER* [Ventolin HFA Inhaler*] 2 puff TID PRN 07/15/19 [History Confirmed 08/22/19] Ascorbic Acid TAB* [Vitamin C TAB*] 500 mg PO DAILY 08/22/19 [History Confirmed 08/22/19] Benzonatate CAP* [Tessalon 100 MG CAP*] 100 mg PO BID 5 Days #10 cap 08/22/19 [ Rx] DOXYcycline CAP(*) [DOXYcycline 100MG CAP(*)] 100 mg PO BID 08/22/19 [History Confirmed 08/22/19] DOXYcycline CAP(*) [DOXYcycline 100MG CAP(*)] 100 mg PO BID 4 Days #8 cap [Rx] Multivitamin [Multivitamins] 1 cap PO DAILY 08/22/19 [History Confirmed 08/22/19 ] traZODone TAB* [Desyrel TAB*] 100 mg PO BEDTIME 08/22/19 [History Confirmed ] PMH/Surg Hx/FS Hx/Imm Hx - Additional Past Medical History Additional PMH: fibromyalgia Previously Healthy: Yes GI/ History: Gastroesophageal Reflux - Surgical History Surgical History: Yes Surgery Procedure, Year, and Place: [place] [facility] [place] [facility] [place]-- T&A. BARIATRIC SURGERY 2003 [place]; 1993--C-SECT [place]; 2010--CHOLECYSTECTOMY; C6-C7 NECK FUSION- 10/2015 [place] - Family History Known Family History: Positive: Hypertension, Diabetes - Social History Alcohol Use: None Substance Use Type: None Smoking Status (MU): Never Smoked Tobacco Household Exposure Type: Cigarettes Review of Systems All Other Systems Reviewed And Are Negative: Yes Constitutional: Negative: Fever, Chills, Fatigue Skin: Negative: Rash Respiratory: Positive: Cough - dry,coughing fits. Negative: Shortness Of Breath Gastrointestinal: Negative: Vomiting, Diarrhea Physical Exam Triage Information Reviewed: Yes Appearance: Well-Appearing Vital Signs: Initial Vital Signs Temp 99 F 08/22/19 19:44 Pulse 72 08/22/19 19:44 Resp 18 08/22/19 19:44 BP 131/71 08/22/19 19:44 Pulse Ox 98 08/22/19 19:44 Vital Signs Reviewed: Yes Eyes: Positive: Conjunctiva Clear Neck: Positive: Supple, Nontender, No Lymphadenopathy Respiratory: Positive: Lungs clear. Negative: Crackles, Rhonchi, Stridor, Wheezing Respiratory Course/Dx - Course Course Of Treatment: Cough w/ assoc. symptoms x 4 days. Pt felt this was continuation of previous cough from 06/2019 but unlikely since she had 2 wks of improvement and no symptoms. Likely viral etiology. s he refused the flu swab today. vitals were good and she was coughing on exam but lungs were clear. Plan is to cont. her doxy for a few more days and she already has planned pcp appt this coming week. they can recheck her lungs at that time. she should cont. her albuterol. i tea cont. her tessalon perles as well. do not think she has pneumonia at this time. - Differential Dx/Diagnosis Differential Diagnosis/HQI/PQRI: Bronchitis, Lower Resp Infection, Other Provider Diagnosis: Cough Discharge ED - Sign-Out/Discharge Documenting (check all that apply): Patient Departure All imaging exams completed and their final reports reviewed: No Studies - Discharge Plan Condition: Good Disposition: HOME Prescriptions: Benzonatate CAP* [Tessalon 100 MG CAP*] 100 mg PO BID 5 Days #10 cap DOXYcycline CAP(*) [DOXYcycline 100MG CAP(*)] 100 mg PO BID 4 Days #8 cap Patient Education Materials: Acute Bronchitis (ED) Referrals: Carmella Marina MD [Primary Care Provider] - Additional Instructions: Please follow up with your primary care provider this week. - Billing Disposition and Condition Condition: GOOD Disposition: Home - Attestation Statements Provider Attestation: I was available for consult. This patient was seen by the [facility]. The patient was not presented to , seen by or examined by dc -Rahel Romano MD
== END 2019-08-22 20:33 | disposition home or self-care (01) ==
LOC: UCCORT 18:58
DX: R05 Cough (principal); M79.7 Fibromyalgia; K21.9 Gastro-esophageal reflux disease without esophagitis; Z79.899 Other long term (current) drug therapy; Z91.09 Other allergy status, other than to drugs and biological substances; Z88.5 Allergy status to narcotic agent; Z88.8 Allergy status to other drugs, medicaments and biological substances; Z88.1 Allergy status to other antibiotic agents; Z91.030 Bee allergy status
CPT/HCPCS: 99212; G0463